=== PATIENT | female | born 1945 | race Caucasian/White ===

== ENCOUNTER 2018-01-02 17:09 | Inpatient (IN) ==
[2018-01-02] MEDS ORDERED: HYDROmorphone PF Inj 2 MG/ML Vial IV.PUSH ONE (18:17)
--- NOTE | 2018-01-02 18:50 | XR ---
EXAM DATE: 01/02/2018 6:35 PM EDT AGE/SEX: 72 years / Female INDICATIONS: Left anterior chest, neck and left arm pain CLINICAL DATA: This is the patient's initial encounter. Patient reports that signs and symptoms have been present for 4 - 6 days and indicates a pain score of 8/10. MEDICAL/SURGICAL HISTORY: None. None. COMPARISON: No prior exams available for comparison. FINDINGS: A single AP view of the chest demonstrates the lungs to be symmetrically aerated without evidence of mass, infiltrate or effusion. Minimal basilar atelectasis. Surgical clips left axilla. The cardiomedi astinal contours are prominent. Osseous structures are intact. CONCLUSION: Mild cardiomegaly with probable basilar atelectasis. Surgical clips left axilla. No significant effus ion. Electronically signed by: Lorne Curran MD 01/02/2018 6:48 PM EDT
--- NOTE | 2018-01-02 18:51 | ED ---
HPI General Chief complaint: Extremity Problem,Nontraumatic Stated complaint: chest pain/left shoulder/left arm/poss infection Time Seen by Provider: 01/02/18 17:33 Source: patient Mode of arrival: ambulatory Limitations: no limitations History of Present Illness HPI Narrative: The patient is a 72-year-old female that presents for the evaluation of left arm pain. The patient states that the pain started three days ago on Saturday. The patient states that the pain is localized to the left shoulder down to the left hand. The patient states that the pain has been constant since Saturday and the patient states that when she tries to move the arm she rates the pain a 12/10 on a pain scale. The patient does not state that anything aggravates or alleviates the pain. The patient also states that the left arm began to swell this morning. 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 Upon review of symptoms the patient states that she has been experiencing fatigue, dry mouth, and she reports some nausea with dry heaving but no vomiting. The patient denies chest pain, shortness of breath, and fever. She does report that she has a pounding headache and that she feels dizzy when she stands up too fast. Related Data Home Medications Medication Instructions Recorded Confirmed alprazolam 0.25 mg PO BID 01/02/18 01/02/18 anastrozole 1 mg PO DAILY 01/02/18 01/02/18 apixaban [Eliquis] 5 mg PO BID 01/02/18 01/02/18 furosemide [Lasix] 40 mg PO DAILY 01/02/18 01/02/18 gabapentin 300 mg PO DAILY 01/02/18 01/02/18 hydrocodone-acetaminophen 1 tab PO Q4H PRN 01/02/18 01/02/18 levothyroxine 137 mcg PO DAILY 01/02/18 01/02/18 metoprolol tartrate 100 mg PO BID 01/02/18 01/02/18 omeprazole 20 mg PO DAILY 01/02/18 01/02/18 potassium chloride [K-Tab] 10 meq PO BID 01/02/18 01/02/18 simvastatin 10 mg PO QPM 01/02/18 01/02/18 Allergies Allergy/AdvReac Type Severity Reaction Status Date / Time amlodipine Allergy Mild UNKNOWN Verified 01/02/18 17:30 lisinopril Allergy Mild UNKNOWN Verified 01/02/18 17:30 nifedipine Allergy Mild UNKNOWN Verified 01/02/18 17:30 NSAIDS (Non-Steroidal Allergy Mild Hives Verified 01/02/18 17:30 Anti-Inflamma morphine AdvReac Mild Nausea/Vomi Verified 01/02/18 17:28 ting STEROIDS Allergy Severe Anaphylaxis Uncoded 01/02/18 17:28 Review of Systems ROS: all other systems reviewed are negative [facility] Social History Social History Substance History: No History of Abuse Smoking Status: Former smoker Tobacco Type: Cigarettes How Often Do You Have a Drink Containing Alcohol: Never Recent Travel in [facility] within the Last 8 Weeks: No Recent Out of Country Travel within the Last 8 Weeks: No Immunization History Tetanus Immunization: Unsure Hx Influenza Vaccine This Season: No Exam Narrative Exam Narrative: GENERAL: Well appearing. SKIN: Focused skin assessment warm/dry. HEAD: Atraumatic. Normocephalic. EYES: Pupils equal and round. No scleral icterus. No injection or drainage. ENT: No nasal bleeding or discharge. Mucous membranes pink and moist. Tongue is midline. No uvula deviation. NECK: Trachea midline. No JVD. CARDIOVASCULAR: Regular rate and rhythm. No murmur appreciated. RESPIRATORY: No accessory muscle use. Clear to auscultation. Breath sounds equal bilaterally. GASTROINTESTINAL: Abdomen soft, non-tender, nondistended. Hepatic and splenic margins not palpable. MUSCULOSKELETAL: No obvious deformities. No clubbing. No cyanosis. No edema. Full ROM of all extremities with exception of the left upper arm. Has swelling and pain to the left arm. erythematous. Very swollen compared to the right. Very tender. Cannot raise arm without significant pain. NEUROLOGICAL: Awake and alert. No obvious cranial nerve deficits. Motor grossly within normal limits. Normal speech. PSYCHIATRIC: Appropriate mood and affect; insight and judgment normal. Course Initial Documented Vital Signs Temperature 97.5 F L 01/02/18 17:18 Pulse Rate 65 01/02/18 17:18 Respiratory Rate 16 01/02/18 17:18 Blood Pressure 142/73 H 01/02/18 17:18 Pulse Oximetry 97 01/02/18 17:18 Last Documented Vital Signs Temperature 97.5 F L 01/02/18 17:18 Pulse Rate 65 01/02/18 19:57 Respiratory Rate 16 01/02/18 19:57 Blood Pressure 131/69 01/02/18 19:57 Pulse Oximetry 93 L 01/02/18 19:57 Medical Decision Making MDM Narrative Medical decision making narrative: 72-year-old female that presents to the ED for evaluation of left arm pain and swelling. Patient was properly examined and was found to have signs and symptoms very concerning for infected lymphangitis. Labs and imaging order. Labs and imaging did show elevated white blood cell count, CRP and ESR. Patient was given Dilaudid as well as Zofran and Zosyn and Vanco. Patient still in some discomfort. Recommendation at this time is for admission for further evaluation. Patient agrees with this plan. Case discussed with Dr. Johnson who agrees to admission. Case discussed with Dr. Conley, my attending, who agrees with admission and plan. Medical Screen Exam Complete: Yes Emergency Medical Condition: Yes Differential Diagnosis Differential Diagnosis: Lymphadenitis versus lymphangitis versus cellulitis versus infected arm Medical Records Medical records reviewed: Yes I reviewed the patient's medical records. Lab Data Lab results reviewed: Yes I reviewed the patient's lab results. Result diagrams: 01/02/18 18:15 Lab Results 01/02/18 01/02/18 01/02/18 Range/Units 18:15 18:15 18:15 WBC 14.7 H (4.0-11.0) th/mm3 RBC 4.16 (4.00-5.30) mil/mm3 Hgb 11.9 (11.6-15.3) gm/dL Hct 35.2 (35.0-46.0) % MCV 84.6 (80.0-100.0) fL MCH 28.6 (27.0-34.0) pg MCHC 33.8 (32.0-36.0) % RDW 15.2 (11.6-17.2) % Plt Count 230 (150-450) th/mm3 MPV 8.5 (7.0-11.0) fL Neut % (Auto) 72.4 H (16.0-70.0) % Lymph % (Auto) 11.9 (9.0-44.0) % [place] % (Auto) 14.1 H (0.0-8.0) % Eos % (Auto) 1.1 (0.0-4.0) % Baso % (Auto) 0.5 (0.0-2.0) % Neut # (Auto) 10.6 H (1.8-7.7) th/mm3 Lymph # (Auto) 1.8 (1.0-4.8) th/mm3 [place] # (Auto) 2.1 H (0.0-0.9) th/mm3 Eos # (Auto) 0.2 (0.0-0.4) th/mm3 Baso # (Auto) 0.1 (0.0-0.2) th/mm3 WBC Differential . Differential Comment Auto diff final ESR (0-30) mm/hr PT 11.4 (9.8-11.6) sec INR 1.1 Ratio APTT 35.9 H (24.3-30.1) sec Lactic Acid (0.4-2.0) mmol/L Magnesium 1.7 (1.5-2.5) mg/dL C-Reactive Protein 32.00 H (0.00-0.30) mg/dL 01/02/18 01/02/18 Range/Units 18:15 18:15 WBC (4.0-11.0) th/mm3 RBC (4.00-5.30) mil/mm3 Hgb (11.6-15.3) gm/dL Hct (35.0-46.0) % MCV (80.0-100.0) fL MCH (27.0-34.0) pg MCHC (32.0-36.0) % RDW (11.6-17.2) % Plt Count (150-450) th/mm3 MPV (7.0-11.0) fL Neut % (Auto) (16.0-70.0) % Lymph % (Auto) (9.0-44.0) % [place] % (Auto) (0.0-8.0) % Eos % (Auto) (0.0-4.0) % Baso % (Auto) (0.0-2.0) % Neut # (Auto) (1.8-7.7) th/mm3 Lymph # (Auto) (1.0-4.8) th/mm3 [place] # (Auto) (0.0-0.9) th/mm3 Eos # (Auto) (0.0-0.4) th/mm3 Baso # (Auto) (0.0-0.2) th/mm3 WBC Differential Differential Comment ESR 90 H (0-30) mm/hr PT (9.8-11.6) sec INR Ratio APTT (24.3-30.1) sec Lactic Acid 1.2 (0.4-2.0) mmol/L Magnesium (1.5-2.5) mg/dL C-Reactive Protein (0.00-0.30) mg/dL Imaging Data Attestation: I personally reviewed and interpreted this imaging study as follows : Radiologist's impression: Chest X-Ray 01/02/18 18:17 CONCLUSION: Mild cardiomegaly with probable basilar atelectasis. Surgical clips left axilla. No significant effusion. Venous Doppler Study 01/02/18 18:20 CONCLUSION: 1. The study is negative for upper extremity deep venous thrombosis. 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 Discharge Plan Discharge Disposition Patient Disposition: 30 Still Patient Discharge Details Diagnosis: Lymphadenitis, acute, Cellulitis Physicians Team ED Provider: Marc Conley ED Midlevel Provider: Imer Christine Primary Care Provider: UNKNOWN, Attending Provider: Ashok Bonilla Discharge Interventions Interventions: Vital Signs Last Done: 01/02/18 19:57 Status ED Status: Admitted Observation Patient
[2018-01-02 19:09] LABS: Activated Partial Thrombo Time 35.9 sec (24.3-30.1); INR 1.1 Ratio; Prothrombin Time 11.4 sec (9.8-11.6)
[2018-01-02 19:16] LABS: Baso # (Auto) 0.1 th/mm3 (0.0-0.2); Baso % (Auto) 0.5 % (0.0-2.0); Eos # (Auto) 0.2 th/mm3 (0.0-0.4); Eos % (Auto) 1.1 % (0.0-4.0); Hematocrit 35.2 % (35.0-46.0); Hemoglobin 11.9 gm/dL (11.6-15.3); Lymph # (Auto) 1.8 th/mm3 (1.0-4.8); Lymph % (Auto) 11.9 % (9.0-44.0); Mean Corpuscular HGB Conc 33.8 % (32.0-36.0); Mean Corpuscular Hemoglobin 28.6 pg (27.0-34.0); Mean Corpuscular Volume 84.6 fL (80.0-100.0); Mean Platelet Volume 8.5 fL (7.0-11.0); Mono # (Auto) 2.1 th/mm3 (0.0-0.9); Mono % (Auto) 14.1 % (0.0-8.0); Neut # (Auto) 10.6 th/mm3 (1.8-7.7); Neut % (Auto) 72.4 % (16.0-70.0); Platelet Count 230 th/mm3 (150-450); Red Blood Count 4.16 mil/mm3 (4.00-5.30); Red Cell Distribution Width 15.2 % (11.6-17.2); White Blood Count 14.7 th/mm3 (4.0-11.0)
[2018-01-02 19:31] LABS: Magnesium 1.7 mg/dL (1.5-2.5)
--- NOTE | 2018-01-02 19:36 | XR ---
EXAM DATE: 01/02/2018 7:18 PM EDT AGE/SEX: 72 years / Female INDICATIONS: Arthritis. CLINICAL DATA: This is the patient's initial encounter. Patient reports that signs and symptoms have been present for 4 - 6 days and indicates a pain score of 10/10. MEDICAL/SURGICAL HISTORY: None. None. COMPARISON: No prior exams available for comparison. FINDINGS: Bony structures are intact and in normal alignment. Moderate to severe osteoarthritis of the left lizzie ulder joint. Moderate osteoarthritis of the AC joint. Surgical clips left axilla. Osseous density is normal. No radiopaque foreign bodies seen. 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 Electronically signed by: Lorne Curran MD 01/02/2018 7:35 PM EDT
--- NOTE | 2018-01-02 19:48 | US ---
EXAM DATE: 01/02/2018 7:41 PM EDT AGE/SEX: 72 years / Female INDICATIONS: Left arm swelling and pain. CLINICAL DATA: This is the patient's initial encounter. Patient reports that signs and symptoms have been present for 4 - 6 days and indicates a pain score of 10/10. MEDICAL/SURGICAL HISTORY: . Left arm cancer. None. COMPARISON: No prior exams available for comparison. FINDINGS: The vessels are compressible and augmentation response is documented. No filling defects a re seen. The flow is phasic with respiration. Other: None. CONCLUSION: 1. The study is negative for upper extremity deep venous thrombosis. Electronically signed by: Lorne Curran MD 01/02/2018 7:47 PM EDT
[2018-01-02] MEDS ORDERED: Piperacil/Tazo 3.375 GM Premix 50 ML IV.SIG ONE (20:25)
[2018-01-02] MEDS ORDERED: Vancomycin Inj 1 GM/200 ML PIGGYBACK IV.SIG SCH (21:00)
[2018-01-02] MEDS ORDERED: Vancomycin Consult Pharmacy 1 EACH OTHER SCH (21:00)
[2018-01-02] MEDS ORDERED: Vancomycin Inj 1,500 MG in Sodium Chlor 0.9% Inj 500 ML IV.SIG ONE (22:00)
[2018-01-02] MEDS: Sod Chloride 0.9% Inj 1,000 ML IV.CONT SCH (22:17)
[2018-01-02] MEDS: ALPRAZolam 0.25 MG Tablet PO SCH (22:18)
[2018-01-03] MEDS: HYDROmorphone PF Inj 2 MG/ML Vial IV.PUSH PRN ×5 (01:57→23:48)
--- NOTE | 2018-01-03 06:05 | P.HP ---
History of Present Illness Service: [facility] adult med Primary Care Physician: UNKNOWN Chief Complaint: Arm pain, swelling, redness History of Present Illness: The patient is a 72-year-old female with chronic left upper extremity lymphedema status post distant history of left axillary node surgery that presents for the evaluation of left arm pain. The patient states that the pain started three days prior to arrival on Saturday. The patient states that the pain is localized to the left shoulder down to the left hand but also involves some spasm of her left neck. The patient states that the pain has been constant since Saturday and the patient states that when she tries to move the arm, the pain is significantly worse despite outpatient pain medication. She has visited her primary care physician twice regarding this including earlier on the day of arrival. She has been given Rocephin injection 2 as an outpatient and was started on Bactrim 1 day prior to arrival per record review. The arm swelling, pain and redness have increased despite these interventions. She has been experiencing fatigue, dry mouth, and she reports some nausea with dry heaving but no vomiting. The patient denies chest pain, shortness of breath, and fever. She does report that she has a pounding headache and that she feels dizzy when she stands up too fast. 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 Has 2 adult sons , No tobacco since around 1986, prior to that smoked approximately pack per day for 5 years Denies alcohol or illicit drug use - Diagnosis (1) Lymphadenitis, acute (2) Cellulitis (3) Lymphedema (4) Atrial fibrillation (5) Hypertension (6) Hypothyroidism Review of Systems Constitutional: Reports body ache(s), Reports excessive sweating Ears, Nose, Mouth, and Throat: Denies abnormal hearing, Denies bleeding gums, Denies bad breath, Denies change in voice, Denies dental pain, Denies difficulty swallowing, Denies dizziness, Denies dry mouth, Denies ear discharge , Denies ear pain, Denies facial pain, Denies headache(s), Denies hearing loss, Denies hoarseness, Denies lip swelling, Denies nosebleed, Denies mouth lesions, Denies mouth pain, Denies nasal congestion, Denies nasal discharge, Denies nasal obstruction, Denies nasal trauma, Denies neck lump, Denies neck pain, Denies nose pain, Denies pain with swallowing, Denies poor balance, Denies post nasal drip, Denies ringing in the ears, Denies sinus pain, Denies sinus pressure , Denies sore throat, Denies throat swelling, Denies tongue swelling, Denies other Cardiovascular: Denies chest pain, Denies chest pain at rest, Denies chest pain with activity, Denies excessive sweating, Denies fainting, Denies fast heart rate, Denies foot swelling, Denies generalized swelling, Denies irregular heart rhythm, Denies leg pain with activity, Denies leg sores, Denies leg swelling, Denies lightheadedness, Denies radiating jaw, neck or arm pain, Denies rapid, pounding, or irregular heartbeat, Denies shortness of breath, Denies shortness of breath with activity, Denies shortness of breath when lying down, Denies shortness of breath causing sudden awakening, Denies slow heart rate, Denies other Respiratory: Denies change in phlegm color, Denies chest congestion, Denies cough, Denies coughing up blood, Denies excessive phlegm production, Denies pain on inspiration, Denies pain with cough, Denies shortness of breath, Denies shortness of breath with activity, Denies snoring, Denies stridor, Denies wheezing, Denies other Gastrointestinal: Reports heartburn, Reports nausea Musculoskeletal: Reports back pain, Reports body aches, Reports muscle weakness Skin/Breast: Reports redness Neurologic: Reports sensory deficit Psychiatric: Reports anxiety Endocrine: Reports excessive sweating Hematologic/Lymphatic: Reports easy bleeding, Reports easy bruising PMFSH - History History Provided By: Patient - Medical History Medical History: Medical History (Last Updated 01/03/18 @ 05:50 by Jonny Johnson MD, PhD) Lymphedema (Acute) Morbid obesity (Acute) Hypothyroidism (Acute) Hypertension (Acute) GERD (gastroesophageal reflux disease) (Acute) Atrial fibrillation (Acute) Anxiety CKD (chronic kidney disease) stage 3, GFR 30-59 ml/min High cholesterol Lumbar radiculopathy Peripheral neuropathy due to chemotherapy - Surgical History Surgical History: Surgical History (Last Updated 01/03/18 @ 05:52 by Jonny Johnson MD, PhD) History of hip replacement, total History of lumpectomy of left breast History of total abdominal hysterectomy and bilateral salpingo-oophorectomy Hx of total knee replacement - Family History Family History: Family History (Last Updated 01/03/18 @ 05:54 by Jonny Johnson MD, PhD) Mother Lung cancer Father Coronary artery disease - Tobacco History Second Hand Smoke Exposure: No Smoking Status: Former smoker Tobacco Type: Cigarettes Number of Pack Years (if former smoker): 5 Smoking End Date: 1986 - Alcohol History How Often Do You Have a Drink Containing Alcohol: Never - Substance Use History Substance History: No History of Abuse - Travel History Recent Travel in the [place] Within the Last 8 Weeks: No Recent Travel Out of the Country Within the Last 8 Weeks: No - Immunization History Tetanus Immunization: Unsure Hx Influenza Vaccine This Season: No Medications and Allergies Active Medications: Active Medications Alprazolam (Xanax) 0.25 mg PO BID [facility] Last Admin: 01/02/18 22:18 Dose: 0.25 mg Anastrozole (Arimidex) 1 mg PO DAILY [facility] Apixaban (Eliquis) 5 mg PO BID [facility] Last Admin: 01/02/18 22:18 Dose: 5 mg Digoxin (Lanoxin) 125 mcg PO DAILY [facility] Duloxetine HCl (Cymbalta) 30 mg PO DAILY [facility] Gabapentin (Neurontin) 600 mg PO TID [facility] Hydromorphone HCl (Dilaudid Pf Inj) 1 mg IV.PUSH Q4H PRN PRN Reason: PAIN LEVEL 3-10 Last Admin: 01/03/18 01:57 Dose: 1 mg Sodium Chloride (Ns Inj) 1,000 mls @ 75 mls/hr IV.CONT .[id number] [facility] Last Admin: 01/02/18 22:17 Dose: 75 mls/hr Pharmacy Profile Note (Vancomycin Consult Pharmacy) 0 mls @ 0 mls/hr OTHER UNSCH [facility] Levothyroxine Sodium (Synthroid) 112 mcg PO DAILY@0600 [facility] Levothyroxine Sodium (Synthroid) 25 mcg PO DAILY@0600 [facility] Metoprolol Tartrate (Lopressor) 50 mg PO BID [facility] Ondansetron HCl (Zofran Inj) 4 mg IV.PUSH Q6H PRN PRN Reason: nausea, vomiting Pantoprazole Sodium (Protonix) 20 mg PO DAILY [facility] Sodium Chloride (Ns Flush) 2 ml IV.FLUSH BID [facility] Last Admin: 01/02/18 22:18 Dose: Not Given Sodium Chloride (Ns Flush) 2 ml IV.FLUSH PRN PRN PRN Reason: FLUSH AFTER USING IV ACCESS Allergies Allergy/AdvReac Type Severity Reaction Status Date / Time amlodipine Allergy Mild UNKNOWN Verified 01/02/18 17:30 lisinopril Allergy Mild UNKNOWN Verified 01/02/18 17:30 nifedipine Allergy Mild UNKNOWN Verified 01/02/18 17:30 NSAIDS (Non-Steroidal Allergy Mild Hives Verified 01/02/18 17:30 Anti-Inflamma morphine AdvReac Mild Nausea/Vomi Verified 01/02/18 17:28 ting STEROIDS Allergy Severe Anaphylaxis Uncoded 01/02/18 17:28 Home Medications Medication Instructions Recorded Confirmed Type alprazolam 0.25 mg PO TID PRN 01/02/18 01/03/18 History anastrozole 1 mg PO DAILY 01/02/18 01/02/18 History apixaban [Eliquis] 5 mg PO BID 01/02/18 01/02/18 History furosemide [Lasix] 40 mg PO DAILY 01/02/18 01/02/18 History gabapentin 300 mg PO DAILY 01/02/18 01/02/18 History hydrocodone-acetaminophen 1 tab PO Q4H PRN 01/02/18 01/02/18 History levothyroxine 137 mcg PO DAILY 01/02/18 01/02/18 History metoprolol tartrate 100 mg PO BID 01/02/18 01/02/18 History omeprazole 20 mg PO DAILY 01/02/18 01/02/18 History potassium chloride [K-Tab] 10 meq PO BID 01/02/18 01/02/18 History simvastatin 10 mg PO QPM 01/02/18 01/02/18 History Exam Vital signs: Vital Signs 01/02/18 17:18 01/02/18 19:39 01/02/18 19:57 Temperature 97.5 F L Pulse Rate 65 65 Respiratory Rate 16 8 L 16 Blood Pressure 142/73 H 131/69 Pulse Oximetry 97 93 L 01/02/18 21:00 01/02/18 22:05 01/03/18 04:00 Temperature 98.8 F 98.3 F Pulse Rate 70 66 72 Respiratory Rate 16 17 18 Blood Pressure 140/79 136/73 147/78 H Pulse Oximetry 98 93 L 95 Intake & Output 01/02/18 01/02/1818 06:59 18:59 06:59 Intake Total 565 / 565 Balance 565 / 565 Weight 110.677 kg 110.677 kg Intake: IV 565 / 565 Zosyn 3.375 GM Premix 50 ML @ 50 / 50 100 mls/hr IV.SIG ONCE ONE Rx#: [id number] Vancomycin Inj 1,500 MG In NS 515 / 515 Inj 500 ML @ 257.5 mls/hr IV. SIG ONCE ONE Rx#:[id number] Other: Date of Last Bowel Movement 01/01/18 Weight On Admission 110.677 kg Narrative: GENERAL: Obese, pleasant, cooperative to exam but complaining of pain spasm left shoulder neck area. SKIN: Warm and dry. Erythematous patches left upper extremity with some mild induration. Chronic lymphedema left upper extremity. Skin seems exquisitely tender to palpation even with light touch along left shoulder left lateral arm and left neck area. HEAD: Atraumatic. Normocephalic. EYES: Pupils equal and round. No scleral icterus. No injection or drainage. ENT: No nasal bleeding or discharge. Mucous membranes pink and moist. NECK: Trachea midline. No JVD. Paracervical spasm on the left. No central tenderness to palpation. CARDIOVASCULAR: Regular rate and rhythm. No significant murmurs appreciated. RESPIRATORY: No accessory muscle use. Clear to auscultation. Breath sounds equal bilaterally. GASTROINTESTINAL: Abdomen soft, non-tender, nondistended. Hepatic and splenic margins not palpable. Bowel sounds present MUSCULOSKELETAL: Extremities without clubbing, cyanosis. No obvious deformities. Crepitus left shoulder with tenderness to palpation and positive empty can and apprehension test. Lymphedema left upper extremity. NEUROLOGICAL: Awake and alert. No obvious cranial nerve deficits. Motor grossly within normal limits. Five out of 5 muscle strength in the arms and legs however left upper extremity testing limited due to significant pain. Normal speech. PSYCHIATRIC: Appropriate mood and affect; insight and judgment normal. Results - Labs CBC & Chem 7: 01/02/18 18:15 Labs: Laboratory Results - last 24 hr 01/02/18 01/02/18 01/02/18 18:15 18:15 18:15 WBC 14.7 H RBC 4.16 Hgb 11.9 Hct 35.2 MCV 84.6 MCH 28.6 MCHC 33.8 RDW 15.2 Plt Count 230 MPV 8.5 Neut % (Auto) 72.4 H Lymph % (Auto) 11.9 Charles % (Auto) 14.1 H Eos % (Auto) 1.1 Baso % (Auto) 0.5 Neut # (Auto) 10.6 H Lymph # (Auto) 1.8 Charles # (Auto) 2.1 H Eos # (Auto) 0.2 Baso # (Auto) 0.1 WBC Differential . Differential Comment Auto diff final ESR PT 11.4 INR 1.1 APTT 35.9 H Lactic Acid Magnesium 1.7 C-Reactive Protein 32.00 H 01/02/18 01/02/18 18:15 18:15 WBC RBC Hgb Hct MCV MCH MCHC RDW Plt Count MPV Neut % (Auto) Lymph % (Auto) Charles % (Auto) Eos % (Auto) Baso % (Auto) Neut # (Auto) Lymph # (Auto) Charles # (Auto) Eos # (Auto) Baso # (Auto) WBC Differential Differential Comment ESR 90 H PT INR APTT Lactic Acid 1.2 Magnesium C-Reactive Protein - Imaging Impressions Chest X-Ray 01/02/18 18:17 CONCLUSION: Mild cardiomegaly with probable basilar atelectasis. Surgical clips left axilla. No significant effusion. Venous Doppler Study 01/02/18 18:20 CONCLUSION: 1. The study is negative for upper extremity deep venous thrombosis. 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 Caprini VTE Risk Assessment Caprini VTE Risk Assessment: Moderate/High Risk (score >= 2) Caprini Risk Assessment Model: Point Value = 1 Point Value = 2 Point Value = 3 Point Value = 5 Age 41-60 Minor surgery BMI > 25 kg/m2 Swollen legs Varicose veins or History of unexplained or recurrent spontaneous Oral contraceptives or hormone replacement Sepsis (< 1 month) Serious lung disease, including pneumonia (< 1 month) Abnormal pulmonary function Acute myocardial infarction Congestive heart failure (< 1 month) History of inflammatory bowel disease Medical patient at bed rest Age 61-74 Arthroscopic surgery Major open surgery (> 45 min) Laparoscopic surgery (> 45 min) Malignancy Confined to bed (> 72 hours) Immobilizing plaster cast Central venous access Age >= 75 History of VTE Family history of VTE Factor V Leiden Prothrombin [id number] Lupus anticoagulant Anticardiolipin antibodies Elevated serum homocysteine Heparin-induced thrombocytopenia Other congenital or acquired thrombophilia Stroke (< 1 month) Elective arthroplasty Hip, pelvis, or leg fracture Acute spinal cord injury (< 1 month) Prophylaxis Regimen: Total Risk Factor Score Risk Level Prophylaxis Regimen 0-1 Low Early ambulation 2 Moderate Order ONE of the following: *Sequential Compression Device (SCD) *Heparin 5000 units SQ BID 3-4 Higher Order ONE of the following medications: *Heparin 5000 units SQ TID *Enoxaparin/Lovenox 40 mg SQ daily (WT < 150 kg, CrCl > 30 mL/min) *Enoxaparin/Lovenox 30 mg SQ daily (WT < 150 kg, CrCl > 10-29 mL/min) *Enoxaparin/Lovenox 30 mg SQ BID (WT < 150 kg, CrCl > 30 mL/min) AND/OR *Sequential Compression Device (SCD) 5 or more Highest Order ONE of the following medications: *Heparin 5000 units SQ TID (Preferred with Epidurals) *Enoxaparin/Lovenox 40 mg SQ daily (WT < 150 kg, CrCl > 30 mL/min) *Enoxaparin/Lovenox 30 mg SQ daily (WT < 150 kg, CrCl > 10-29 mL/min) *Enoxaparin/Lovenox 30 mg SQ BID (WT < 150 kg, CrCl > 30 mL/min) AND *Sequential Compression Device (SCD) Assessment and Plan - Assessment (1) Lymphadenitis, acute Code(s): L04.9 - Acute lymphadenitis, unspecified Status: Acute Plan: Continue current antibiotic therapy. Continue pain control measures. Failed outpatient antibiotic therapy and also outpatient attempts at pain control with oral opiates. (2) Cellulitis Code(s): L03.90 - Cellulitis, unspecified Status: Acute Plan: Continue antibiotic therapy. (3) Lymphedema Code(s): I89.0 - Lymphedema, not elsewhere classified Status: Acute Plan: Elevate left upper extremity. May require wound care for lymphedema wrapping. (4) Atrial fibrillation Code(s): I48.91 - Unspecified atrial fibrillation Status: Acute (5) Hypertension Code(s): I10 - Essential (primary) hypertension Status: Acute Plan: We will continue furosemide as per outpatient dosing. Will decrease metoprolol to 50 mg twice a day for now. (6) Hypothyroidism Code(s): E03.9 - Hypothyroidism, unspecified Status: Acute Plan: Continue home medication. Check TSH as her last TSH was elevated at 9.07 in July of this year. - Plan Code Status: full (2) Cellulitis Qualifiers: Site of cellulitis: extremity Site of cellulitis of extremity: upper extremity Laterality: left Qualified Code(s): L03.114 - Cellulitis of left upper limb
[2018-01-03] MEDS: Levothyroxine 112 MCG Tablet PO SCH (06:22)
[2018-01-03] MEDS: Anastrozole 1 MG Tablet PO SCH (08:12)
[2018-01-03] MEDS: ALPRAZolam 0.25 MG Tablet PO SCH ×2 (08:13→23:26)
[2018-01-03] MEDS: Metoprolol Tartrate 50 MG Tablet PO SCH ×2 (08:13→23:26)
[2018-01-03] MEDS: Digoxin 125 MCG Tablet PO SCH (08:13)
[2018-01-03] MEDS: Pantoprazole Sodium 20 MG DR Tablet PO SCH (08:13)
[2018-01-03] MEDS: Furosemide 40 MG Tablet PO SCH (08:13)
[2018-01-03] MEDS: Gabapentin 300 MG Capsule PO SCH ×3 (08:13→18:30)
[2018-01-03] MEDS ORDERED: Gabapentin 300 MG Capsule PO SCH (09:00)
--- NOTE | 2018-01-03 09:16 | P.PNIM ---
Subjective Interval history: Pt complains of significant pain in the left arm, shoulder, and neck/chest. She is sweating profusely but is afebrile. She states that she always sweats quite a bit Physical Exam Vital signs: Vital Signs 01/02/18 17:18 01/02/18 19:39 01/02/18 19:57 Temperature 97.5 F L Pulse Rate 65 65 Respiratory Rate 16 8 L 16 Blood Pressure 142/73 H 131/69 Pulse Oximetry 97 93 L 01/02/18 21:00 01/02/18 22:05 01/03/18 04:00 Temperature 98.8 F 98.3 F Pulse Rate 70 66 72 Respiratory Rate 16 17 18 Blood Pressure 140/79 136/73 147/78 H Pulse Oximetry 98 93 L 95 01/03/18 07:53 Temperature 98.6 F Pulse Rate 79 Respiratory Rate 16 Blood Pressure 125/79 Pulse Oximetry 94 L Intake & Output 01/02/18 01/03/18 01/03/18 18:59 06:59 18:59 Intake Total 565 / 565 Balance 565 / 565 Weight 110.677 kg 110.677 kg Intake: IV 565 / 565 Zosyn 3.375 GM Premix 50 ML @ 50 / 50 100 mls/hr IV.SIG ONCE ONE Rx#: [id number] Vancomycin Inj 1,500 MG In NS 515 / 515 Inj 500 ML @ 257.5 mls/hr IV. SIG ONCE ONE Rx#:[id number] Other: Date of Last Bowel Movement 01/01/18 Weight On Admission 110.677 kg Narrative: General: NAD, AAOx3 Skin: Erythematous patches left upper extremity with some mild induration. Chronic lymphedema left upper extremity. Skin is exquisitely tender to palpation even with light touch along left shoulder left lateral arm and left neck area. Cardiac: Regular rate and rhythm. No significant murmurs appreciated. Chest: CTA bilaterally. Abd: +BS, soft, non-tender, nondistended. Ext: Lymphedema left upper extremity. Results - Labs CBC & Chem 7: 01/03/18 10:51 01/03/18 10:51 Laboratory Results - last 24 hr 01/02/18 01/02/18 01/02/18 18:15 18:15 18:15 WBC 14.7 H RBC 4.16 Hgb 11.9 Hct 35.2 MCV 84.6 MCH 28.6 MCHC 33.8 RDW 15.2 Plt Count 230 MPV 8.5 Neut % (Auto) 72.4 H Lymph % (Auto) 11.9 Kingfisher % (Auto) 14.1 H Eos % (Auto) 1.1 Baso % (Auto) 0.5 Neut # (Auto) 10.6 H Lymph # (Auto) 1.8 [place]isher # (Auto) 2.1 H Eos # (Auto) 0.2 Baso # (Auto) 0.1 WBC Differential . Differential Comment Auto diff final ESR PT 11.4 INR 1.1 APTT 35.9 H Lactic Acid Magnesium 1.7 C-Reactive Protein 32.00 H 01/02/18 01/02/18 18:15 18:15 WBC RBC Hgb Hct MCV MCH MCHC RDW Plt Count MPV Neut % (Auto) Lymph % (Auto) Kingfisher % (Auto) Eos % (Auto) Baso % (Auto) Neut # (Auto) Lymph # (Auto) Kingfisher # (Auto) Eos # (Auto) Baso # (Auto) WBC Differential Differential Comment ESR 90 H PT INR APTT Lactic Acid 1.2 Magnesium C-Reactive Protein - Imaging Impressions Chest X-Ray 01/02/18 18:17 CONCLUSION: Mild cardiomegaly with probable basilar atelectasis. Surgical clips left axilla. No significant effusion. Venous Doppler Study 01/02/18 18:20 CONCLUSION: 1. The study is negative for upper extremity deep venous thrombosis. 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 Assessment and Plan - Assessment (1) Cellulitis Code(s): L03.90 - Cellulitis, unspecified Status: Acute Plan: Cellulitis, LUE/shoulder/neck Lymphedema LUE - Pt is a 72 y/o female with chronic left upper extremity lymphedema s/p left breast lumpectomy and axillary node surgery - Pt presented to the ED at [facility] [place] on 01/02/18 with left arm pain and redness. The patient states that the pain started three days prior to arrival in the ED. The patient states that the pain is localized to the left shoulder down to the left hand but also involves some spasm of her left neck. - She has visited her primary care physician twice regarding this and has been given Rocephin injection 2 as an outpatient and was started on Bactrim 1 day prior to arrival per record review. The arm swelling, pain and redness have increased despite these interventions. - LUE US was negative for DVT - Pt was given IV Vancomycin and Zosyn in the ED - She has been continued on IV Vanc with pharmacy to dose - Blood cultures were drawn in the ED and are pending. - Try to keep LUE elevated - Add Zosyn 3.375 Q6H - Check CT LUE and soft tissue of the neck. Will have to do noncontrasted due to elevated Cr but not ideal for evaluation. - Supportive care - Monitor labs closely DVT prophylaxis with pts home dose of Eliquis A. fib - Cont. home meds HTN - Home meds continued - Monitor Hypothyroidism - Continue home medication. - Awaiting repeat TSH as her last TSH was elevated at 9.07 in July 2017. (2) Lymphedema Code(s): I89.0 - Lymphedema, not elsewhere classified Status: Chronic (3) Hypothyroidism Code(s): E03.9 - Hypothyroidism, unspecified Status: Chronic (4) Hypertension Code(s): I10 - Essential (primary) hypertension Status: Chronic (5) GERD (gastroesophageal reflux disease) Code(s): K21.9 - Gastro-esophageal reflux disease without esophagitis Status: Acute (6) Atrial fibrillation Code(s): I48.91 - Unspecified atrial fibrillation Status: Chronic (1) Cellulitis Qualifiers: Site of cellulitis: extremity Site of cellulitis of extremity: upper extremity Laterality: left Qualified Code(s): L03.114 - Cellulitis of left upper limb
[2018-01-03 11:10] LABS: Baso % (Auto) 0.4 % (0.0-2.0); Eos # (Auto) 0.1 th/mm3 (0.0-0.4); Eos % (Auto) 1.3 % (0.0-4.0); Hematocrit 31.5 % (35.0-46.0); Hemoglobin 10.5 gm/dL (11.6-15.3); Lymph # (Auto) 0.9 th/mm3 (1.0-4.8); Mean Corpuscular HGB Conc 33.2 % (32.0-36.0); Mean Corpuscular Hemoglobin 28.4 pg (27.0-34.0); Mean Corpuscular Volume 85.5 fL (80.0-100.0); Mono # (Auto) 1.2 th/mm3 (0.0-0.9); Mono % (Auto) 12.3 % (0.0-8.0); Neut # (Auto) 7.4 th/mm3 (1.8-7.7); Platelet Count 215 th/mm3 (150-450); Red Blood Count 3.68 mil/mm3 (4.00-5.30); Red Cell Distribution Width 15.3 % (11.6-17.2); White Blood Count 9.6 th/mm3 (4.0-11.0)
[2018-01-03 11:19] LABS: Calcium 8.3 mg/dL (8.5-10.1); Carbon Dioxide 30.1 meq/L (21.0-32.0)
[2018-01-03 11:23] LABS: Potassium 2.9 meq/L (3.5-5.1)
[2018-01-03] MEDS: Potassium Chloride 10 MEQ ER Capsule PO SCH ×4 (12:26→23:58)
[2018-01-03] MEDS: Piperacil/Tazo 3.375 GM Premix 50 ML IV.SIG SCH ×2 (12:47→18:30)
--- NOTE | 2018-01-03 13:58 | CT ---
EXAM DATE: 01/03/2018 1:38 PM EDT AGE/SEX: 72 years / Female INDICATIONS: Patient's neck swelling since yesterday. CLINICAL DATA: This is the patient's initial encounter. Patient reports that signs and symptoms have been present for 1 day and indicates a pain score of 10/10. MEDICAL/SURGICAL HISTORY: Hypertension. gerd, A-fib, chemo, lymphadenitis, neuropathy Hysterectomy . oophorectomy RADIATION DOSE: 18.14 CTDI (mGy) COMPARISON: No prior exams available for comparison. TECHNIQUE: Helical acquisition was performed using a multirow detector CT scanner without contrast. Using automated exposure control and adjustment of the mA and/or kV according to patient size, radiat ion dose was kept as low as reasonably achievable to obtain optimal diagnostic quality images. DICOM format image data is available electronically for review and comparison. FINDINGS: Nasopharynx: The nasopharyngeal airway has a normal configuration. No mucosal thickening or mass is seen. Oropharynx: The intrinsic muscles of the tongue are symmetric. The tonsillar pillars are intact. T he prevertebral soft tissues are not thickened. Larynx: The supraglottic, glottic, and infraglottic structures are intact. Parapharyngeal: The parapharyngeal space is intact. Salivary Glands: The parotid and submandibular glands are intact. Lymph Nodes: No enlarged nodes. Thyroid: Grossly intact. Bones: Unremarkable. Soft tissues/musculature: There is enlargement of the left strap muscles suggestive of injury and pos sible hematoma. Diffuse subcutaneous edema is also noted surrounding the strap muscles particularly o n the left. CONCLUSION: 1. Enlargement of the left strap muscles suggestive of injury and possible hematoma. Diffuse subcuta neous edema is also noted surrounding the strap muscles particularly on the left. Electronically signed by: Del Kurtz MD 01/03/2018 1:57 PM EDT
--- NOTE | 2018-01-03 14:37 | CT ---
EXAM DATE: 01/03/2018 1:40 PM EDT AGE/SEX: 72 years / Female INDICATIONS: Left arm cellulitis. CLINICAL DATA: This is the patient's initial encounter. Patient reports that signs and symptoms have been present for > 1 year and indicates a pain score of 10/10. MEDICAL/SURGICAL HISTORY: Hypertension. neuropathy, mary, chemo, lymphadenitis Hysterectomy. oophor ectomy RADIATION DOSE: 27.16 CTDI (mGy) COMPARISON: TLI, MR SHOULDER W/O CONTRAST, LEFT, 08/28/2017. . TECHNIQUE: Multiple contiguous axial images were acquired using a multirow detector CT scanner witho ut contrast. Multiplanar reconstruction was performed in the sagittal and coronal planes. Using aut omated exposure control and adjustment of the mA and/or kV according to patient size, radiation dose was kept as low as reasonably achievable to obtain optimal diagnostic quality images. DICOM format i mage data is available electronically for review and comparison. FINDINGS: There is moderate soft tissue swelling about the shoulder. There is some mild subjacent edema and arm without defined fluid collection to suggest an abscess. Humerus is unremarkable. CONCLUSION: 1. I don't see a defined fluid collection to suggest a deep space abscess. 2. Ultrasound could be used to follow. Electronically signed by: Parish Gar MD 01/03/2018 2:36 PM EDT
[2018-01-03] MEDS: Sod Chloride 0.9% Inj 1,000 ML IV.CONT SCH (14:47)
[2018-01-03] MEDS: Vancomycin Inj 1,750 MG in Sodium Chlor 0.9% Inj 500 ML IV.SIG SCH (15:43)
[2018-01-03] MEDS ORDERED: Gadobutrol PF 10 MMOL/10 ML Vial (for RAD) IV.SIG ONE (18:14)
--- NOTE | 2018-01-03 18:45 | MR ---
EXAM DATE: 01/03/2018 6:17 PM EDT AGE/SEX: 72 years / Female INDICATIONS: Swelling around upper neck for one day. CLINICAL DATA: This is the patient's initial encounter. Patient reports that signs and symptoms have been present for 1 day and indicates a pain score of 7/10. MEDICAL/SURGICAL HISTORY: Hypertension. Carcinoma, breast. Hypothyroidism. Hysterectomy. Bila teral hip and knee replacement, Left side lumpectomy. COMPARISON: No prior exams available for comparison. TECHNIQUE: Multisequence, multiplanar MRI examination was performed without contrast and after the i ntravenous administration of 10 ml Gadavist (gadobutrol) contrast as a single exam dose. FINDINGS: There is an extensive cellulitis of the lower anterior neck which extends into the superior mediastin um along its anterior aspect and into the anterior chest wall. There is a focal 1.4 cm abscess in the left anterior strap musculature near the level of the glottis. There is also a poorly organized but presumed early abscess in the anterosuperior mediastinum near the sternoclavicular joint. There is ex tensive edema in the anterior strap musculature. Minimal marrow signal abnormality in the upper manub rium could represent an early osteomyelitis. No airway obstructing lesion identified. Thyroid mildly edematous as well. CONCLUSION: 1. Extensive cellulitis of the lower anterior neck extending into the anterior chest wall and upper mediastinum. Probable 14 mm abscess in the left anterior neck near the level of the glottis and addit ional developing abscess in the upper anterior mediastinum measuring 2 cm in diameter with a sinus tr act extending to the more superior abscess collection. Questionable early osteomyelitis of the manubr ium. Electronically signed by: Lorne Curran MD 01/03/2018 6:43 PM EDT
[2018-01-04] MEDS: HYDROmorphone PF Inj 2 MG/ML Vial IV.PUSH PRN ×2 (01:20→14:00)
[2018-01-04] MEDS: Piperacil/Tazo 3.375 GM Premix 50 ML IV.SIG SCH ×4 (01:32→18:22)
[2018-01-04] MEDS: Levothyroxine 112 MCG Tablet PO SCH (06:39)
[2018-01-04 06:56] LABS: Baso # (Auto) 0.1 th/mm3 (0.0-0.2); Baso % (Auto) 0.7 % (0.0-2.0); Eos # (Auto) 0.1 th/mm3 (0.0-0.4); Eos % (Auto) 1.6 % (0.0-4.0); Hematocrit 32.4 % (35.0-46.0); Hemoglobin 10.8 gm/dL (11.6-15.3); Lymph # (Auto) 1.2 th/mm3 (1.0-4.8); Lymph % (Auto) 14.3 % (9.0-44.0); Mean Corpuscular HGB Conc 33.3 % (32.0-36.0); Mean Corpuscular Hemoglobin 28.5 pg (27.0-34.0); Mean Corpuscular Volume 85.7 fL (80.0-100.0); Mean Platelet Volume 8.2 fL (7.0-11.0); Mono # (Auto) 1.3 th/mm3 (0.0-0.9); Mono % (Auto) 15.8 % (0.0-8.0); Neut # (Auto) 5.5 th/mm3 (1.8-7.7); Neut % (Auto) 67.6 % (16.0-70.0); Platelet Count 259 th/mm3 (150-450); Red Blood Count 3.78 mil/mm3 (4.00-5.30); White Blood Count 8.2 th/mm3 (4.0-11.0)
[2018-01-04 08:02] LABS: Calcium 8.8 mg/dL (8.5-10.1); Carbon Dioxide 31.2 meq/L (21.0-32.0); Magnesium 1.7 mg/dL (1.5-2.5)
[2018-01-04] MEDS: Digoxin 125 MCG Tablet PO SCH (10:26)
[2018-01-04] MEDS: Anastrozole 1 MG Tablet PO SCH (10:26)
[2018-01-04] MEDS: Metoprolol Tartrate 50 MG Tablet PO SCH ×2 (10:26→20:46)
[2018-01-04] MEDS: Furosemide 40 MG Tablet PO SCH (10:26)
[2018-01-04] MEDS: Gabapentin 300 MG Capsule PO SCH ×3 (10:26→18:22)
[2018-01-04] MEDS: Pantoprazole Sodium 20 MG DR Tablet PO SCH (10:27)
[2018-01-04] MEDS: ALPRAZolam 0.25 MG Tablet PO SCH ×2 (10:27→20:46)
--- NOTE | 2018-01-04 10:35 | P.PNIM ---
Subjective Interval history: pt with more difficulty talking and swallowing pills today left ant neck more swollen. Physical Exam Vital signs: Vital Signs 01/03/18 12:00 01/03/18 16:00 01/03/18 19:13 Temperature 97.7 F 98.2 F 98.3 F Pulse Rate 67 64 74 Respiratory Rate 16 16 19 Blood Pressure 139/75 135/78 125/66 Pulse Oximetry 92 L 96 90 L 01/03/18 19:57 01/03/18 20:20 01/04/18 00:00 Temperature 98.4 F 98.8 F Pulse Rate 76 87 Respiratory Rate 16 20 20 Blood Pressure 122/58 L 121/55 L Pulse Oximetry 92 L 95 01/04/18 04:00 01/04/18 08:00 Temperature 98.1 F 97.8 F Pulse Rate 67 62 Respiratory Rate 20 20 Blood Pressure 122/73 135/71 Pulse Oximetry 97 93 L Intake & Output 01/03/18 01/04/18 01/04/18 18:59 06:59 18:59 Intake Total 3850 / 3850 1400 / 1400 50 / 50 Balance 3850 / 3850 1400 / 1400 50 / 50 Weight 110.677 kg Intake: IV 3850 / 3850 1100 / 1100 50 / 50 NS + KCl 20 mEq Inj 1,000 ML @ 1000 / 1000 84 mls/hr IV.CONT .[id number] DONNA Rx#:[id number] NS Inj 1,000 ML @ 75 mls/hr IV. 2800 / 2800 CONT .[id number] DONNA Rx#:[id number] Zosyn 3.375 GM Premix 50 ML @ 50 / 50 100 / 100 50 / 50 100 mls/hr IV.SIG Q6H DONNA Rx#: [id number] Vancomycin Inj 1,750 MG In NS 1000 / 1000 Inj 500 ML @ 250 mls/hr IV.SIG Q18H DONNA Rx#:[id number] Oral 300 / 300 Other: # Voids 2 more difficulty speaking left ant neck swelling very tender to palpate left neck and chest and arm. some chest/arm erythema improved today. heart reg lung cta abd s/nt ext no edema Results - Labs CBC & Chem 7: 01/04/18 05:12 01/04/18 05:12 Laboratory Results - last 24 hr 01/03/18 01/03/18 01/03/18 10:51 10:51 10:51 WBC 9.6 RBC 3.68 L Hgb 10.5 L Hct 31.5 L MCV 85.5 MCH 28.4 MCHC 33.2 RDW 15.3 Plt Count 215 MPV 8.0 Neut % (Auto) 77.0 H Lymph % (Auto) 9.0 [place] % (Auto) 12.3 H Eos % (Auto) 1.3 Baso % (Auto) 0.4 Neut # (Auto) 7.4 Lymph # (Auto) 0.9 L [place] # (Auto) 1.2 H Eos # (Auto) 0.1 Baso # (Auto) 0.0 WBC Differential . Differential Comment Auto diff final Sodium 135 L Potassium 2.9 L* Chloride 96 L Carbon Dioxide 30.1 Anion Gap 9 BUN 21 H Creatinine 1.08 H Estimated GFR 50 L Random Glucose 163 H Calcium 8.3 L Magnesium TSH 1.830 01/04/18 01/04/18 05:12 05:12 WBC 8.2 RBC 3.78 L Hgb 10.8 L Hct 32.4 L MCV 85.7 MCH 28.5 MCHC 33.3 RDW 15.0 Plt Count 259 MPV 8.2 Neut % (Auto) 67.6 Lymph % (Auto) 14.3 [place] % (Auto) 15.8 H Eos % (Auto) 1.6 Baso % (Auto) 0.7 Neut # (Auto) 5.5 Lymph # (Auto) 1.2 [place] # (Auto) 1.3 H Eos # (Auto) 0.1 Baso # (Auto) 0.1 WBC Differential . Differential Comment Auto diff final Sodium 137 Potassium 4.0 D Chloride 98 Carbon Dioxide 31.2 Anion Gap 8 BUN 18 Creatinine 1.05 H Estimated GFR 52 L Random Glucose 97 Calcium 8.8 Magnesium 1.7 TSH Microbiology 01/02/18 18:15 Blood - Peripheral Aerobic Blood Culture - Preliminary No growth in 1 day 01/02/18 18:15 Blood - Peripheral Anaerobic Blood Culture - Preliminary No growth in 1 day 01/02/18 18:30 Blood - Peripheral Aerobic Blood Culture - Preliminary No growth in 1 day 01/02/18 18:30 Blood - Peripheral Anaerobic Blood Culture - Preliminary No growth in 1 day - Imaging Impressions Humerus CT 01/03/18 00:00 Humerus is unremarkable. CONCLUSION: 1. I don't see a defined fluid collection to suggest a deep space abscess. 2. Ultrasound could be used to follow. Neck MRI 01/03/18 00:00 CONCLUSION: 1. Extensive cellulitis of the lower anterior neck extending into the anterior chest wall and upper mediastinum. Probable 14 mm abscess in the left anterior neck near the level of the glottis and additional developing abscess in the upper anterior mediastinum measuring 2 cm in diameter with a sinus tract extending to the more superior abscess collection. Questionable early osteomyelitis of the manubrium. Soft Tissue Neck CT 01/03/18 00:00 CONCLUSION: 1. Enlargement of the left strap muscles suggestive of injury and possible hematoma. Diffuse subcutaneous edema is also noted surrounding the strap muscles particularly on the left. Assessment and Plan - Assessment (1) Cellulitis Code(s): L03.90 - Cellulitis, unspecified Status: Acute Plan: Cellulitis, LUE/shoulder/neck Lymphedema LUE Ant neck/mediastinum abscess. airway compromise - Pt is a 72 y/o female with chronic left upper extremity lymphedema s/p left breast lumpectomy and axillary node surgery - Pt presented to the ED at [facility] [place] on 01/02/18 with left arm pain and redness. The patient states that the pain started three days prior to arrival in the ED. The patient states that the pain is localized to the left shoulder down to the left hand but also involves some spasm of her left neck. - She has visited her primary care physician twice regarding this and has been given Rocephin injection 2 as an outpatient and was started on Bactrim 1 day prior to arrival per record review. The arm swelling, pain and redness have increased despite these interventions. - LUE US was negative for DVT - Blood cultures were drawn in the ED and are ngtd MRI neck 01/03 1. Extensive cellulitis of the lower anterior neck extending into the anterior chest wall and upper mediastinum. Probable 14 mm abscess in the left anterior neck near the level of the glottis and additional developing abscess in the upper anterior mediastinum measuring 2 cm in diameter with a sinus tract extending to the more superior abscess collection. Questionable early osteomyelitis of the manubrium. Pt having more difficulty speaking and swallowing today spoke with [employer] and CTS. Move to ICU for closer monitoring and surgical intervention as required cont broad abx with vanco and zosyn. ID consult placed hold eliquis cont ivf. ADDENDUM: PT SEEN BY [employer]ER[employer] OFFICER DR MYLES AND CTS DR DO. THEY HAVE EVALUATED PT AND REVIEWED HER FILMS. THEY RECOMMEND NO SURGERY AT THIS TIME JUST IV ABX. THEY RECOMMEND CONSULTING ENT. PT AIRWAY IS PROTECTED AT THIS TIME. A. fib - Cont. home meds HTN - Home meds continued - Monitor Hypothyroidism - Continue home medication. (2) Lymphedema Code(s): I89.0 - Lymphedema, not elsewhere classified Status: Chronic (3) Hypothyroidism Code(s): E03.9 - Hypothyroidism, unspecified Status: Chronic (4) Hypertension Code(s): I10 - Essential (primary) hypertension Status: Chronic (5) GERD (gastroesophageal reflux disease) Code(s): K21.9 - Gastro-esophageal reflux disease without esophagitis Status: Acute (6) Atrial fibrillation Code(s): I48.91 - Unspecified atrial fibrillation Status: Chronic (1) Cellulitis Qualifiers: Site of cellulitis: extremity Site of cellulitis of extremity: upper extremity Laterality: left Qualified Code(s): L03.114 - Cellulitis of left upper limb
--- NOTE | 2018-01-04 10:36 | P.CONID ---
History of Present Illness Service: Infectious Disease Consult date: 01/04/18 Requesting Physician: Ashok Bonilla Reason for Consult: Evaluate patient with abscess in the neck chest and mediastinum Primary Care Provider: UNKNOWN Chief Complaint: Arm pain, swelling, redness History of Present Illness: Patient seen and examined. Records reviewed. Patient is not a very good historian. Found all previous admissions under the name "Kinjal Welch" Patient is a 72-year-old female presented to the hospital complaining of pain, swelling, and redness in her left upper extremity as well as in her neck and left chest. Her problems started December 30 when she started experiencing swelling and pain in her left upper extremity. It progressed to spreading of the pain and swelling to her left neck and left shoulder as well as left anterior chest. She was seen by her primary care physician, and she was given a shot of antibiotics and was given oral antibiotics. She was also seen by her orthopedic doctor at that time because she wanted her left shoulder evaluated. According to the patient both physician told her to go to the hospital for further evaluation and treatment. She denies any sore throat. She has not had any coughing. She apparently had some episodes of nausea and dry heaving when she started having the problem. She denies having any kind of injury or insect bite to her left upper extremity. Patient stated that she has known arthritis on her left shoulder, and has [id number] problem. Patient has had previous lumpectomy and lymph node dissection for left breast cancer back in 2013. She has had problem with cellulitis in the left upper extremity. She can remember the last time she had an infection. She has chronic lymphedema in that arm. Since admission she has not been febrile. Her white count is normal. She has had imaging studies done and there was no evidence of DVT in the left upper extremity. She has evidence of edema on her neck with some extension into the upper mediastinum. There also describing 2 small fluid collections. Today patient had noted pain when she swallows, but she points mostly to her left chest area when she swallows. She has been transferred to the ICU for further closer monitoring. Infectious disease consultation has been requested to assist with evaluation and treatment. Review of Systems Constitutional: Denies chills, Denies fever(s), Denies malaise Eyes: Denies discharge, Denies dry eyes Ears, Nose, Mouth, and Throat: Reports pain with swallowing, Denies difficulty swallowing, Denies dry mouth, Denies lip swelling, Denies mouth pain, Denies nasal congestion, Denies nasal discharge, Denies sore throat Cardiovascular: Reports chest pain, Denies shortness of breath Respiratory: Denies chest congestion, Denies cough, Denies shortness of breath Gastrointestinal: Reports nausea, Reports vomiting, Denies abdominal pain, Denies loose stools Genitourinary: Denies difficulty urinating, Denies painful urination Musculoskeletal: Reports neck pain, Denies back pain Skin/Breast: Denies rash, Denies sores Neurologic: Denies localized weakness PMFSH - History History Provided By: Patient - Medical History Medical History: Medical History (Last Updated 01/04/18 @ 11:19 by Mera Pritchard MD) Lymphedema (Chronic) Morbid obesity (Acute) Hypothyroidism (Chronic) Hypertension (Chronic) GERD (gastroesophageal reflux disease) (Acute) Atrial fibrillation (Chronic) Anxiety CKD (chronic kidney disease) stage 3, GFR 30-59 ml/min Group B streptococcal infection High cholesterol Lumbar radiculopathy 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 - Surgical History Surgical History: Surgical History (Last Updated 01/04/18 @ 11:20 by Mera Pritchard MD) History of hip replacement, total History of lumpectomy of left breast History of lymph node dissection of left axilla History of total abdominal hysterectomy and bilateral salpingo-oophorectomy Hx of total knee replacement - Family History Family History: Family History (Last Updated 01/03/18 @ 05:54 by Jonny Johnson MD, PhD) Mother Lung cancer Father Coronary artery disease - Tobacco History Second Hand Smoke Exposure: No Smoking Status: Former smoker Tobacco Type: Cigarettes Number of Pack Years (if former smoker): 5 Smoking End Date: 1986 - Alcohol History How Often Do You Have a Drink Containing Alcohol: Never - Substance Use History Substance History: No History of Abuse - Travel History Recent Travel in the [place] Within the Last 8 Weeks: No Recent Travel Out of the Country Within the Last 8 Weeks: No - Immunization History Tetanus Immunization: Unsure Hx Influenza Vaccine This Season: No Medications and Allergies Active Medications: Active Medications Alprazolam (Xanax) 0.25 mg PO BID DONNA Last Admin: 01/03/18 23:26 Dose: 0.25 mg Anastrozole (Arimidex) 1 mg PO DAILY [facility] Last Admin: 01/03/18 08:12 Dose: 1 mg Digoxin (Lanoxin) 125 mcg PO DAILY [facility] Last Admin: 01/03/18 08:13 Dose: 125 mcg Duloxetine HCl (Cymbalta) 30 mg PO DAILY [facility] Last Admin: 01/03/18 08:13 Dose: 30 mg Furosemide (Lasix) 40 mg PO DAILY [facility] Last Admin: 01/03/18 08:13 Dose: 40 mg Gabapentin (Neurontin) 600 mg PO TID [facility] Last Admin: 01/03/18 18:30 Dose: 600 mg Hydromorphone HCl (Dilaudid Pf Inj) 1 mg IV.PUSH Q4H PRN PRN Reason: PAIN LEVEL 3-10 Last Admin: 01/04/18 01:20 Dose: 1 mg Pharmacy Profile Note (Vancomycin Consult Pharmacy) 0 mls @ 0 mls/hr OTHER UNSCH [facility] Potassium Chloride/Sodium Chloride (Ns + Kcl 20 Meq Inj) 1,000 mls @ 84 mls/hr IV.CONT .[id number] [facility] Last Admin: 01/03/18 23:27 Dose: 84 mls/hr Vancomycin HCl 1,750 mg/ (Sodium Chloride) 517.5 mls @ 250 mls/hr IV.SIG Q18H [facility] Last Infusion: 01/03/18 18:40 Dose: Infused Piperacillin/Tazobactam/Dextrose (Zosyn 3.375 Gm Premix) 50 mls @ 100 mls/hr IV.SIG Q6H [facility] Last Infusion: 01/04/18 07:40 Dose: Infused Levothyroxine Sodium (Synthroid) 112 mcg PO DAILY@0600 [facility] Last Admin: 01/04/18 06:39 Dose: 112 mcg Levothyroxine Sodium (Synthroid) 25 mcg PO DAILY@0600 [facility] Last Admin: 01/04/18 06:39 Dose: 25 mcg Metoprolol Tartrate (Lopressor) 50 mg PO BID [facility] Last Admin: 01/03/18 23:26 Dose: 50 mg Miscellaneous Information ([facility] Ordered Lab Info) 0 each OTHER ONCE ONE Stop: 01/05/18 03:46 Ondansetron HCl (Zofran Inj) 4 mg IV.PUSH Q6H PRN PRN Reason: nausea, vomiting Pantoprazole Sodium (Protonix) 20 mg PO DAILY [facility] Last Admin: 01/03/18 08:13 Dose: 20 mg Sodium Chloride (Ns Flush) 2 ml IV.FLUSH BID [facility] Last Admin: 01/03/18 23:26 Dose: 2 ml Sodium Chloride (Ns Flush) 2 ml IV.FLUSH PRN PRN PRN Reason: FLUSH AFTER USING IV ACCESS Allergies Allergy/AdvReac Type Severity Reaction Status Date / Time amlodipine Allergy Mild UNKNOWN Verified 01/02/18 17:30 lisinopril Allergy Mild UNKNOWN Verified 01/02/18 17:30 nifedipine Allergy Mild UNKNOWN Verified 01/02/18 17:30 NSAIDS (Non-Steroidal Allergy Mild Hives Verified 01/02/18 17:30 Anti-Inflamma morphine AdvReac Mild Nausea/Vomi Verified 01/02/18 17:28 ting STEROIDS Allergy Severe Anaphylaxis Uncoded 01/02/18 17:28 Home Medications Medication Instructions Recorded Confirmed Type alprazolam 0.25 mg PO TID PRN 01/02/18 01/03/18 History anastrozole 1 mg PO DAILY 01/02/18 01/02/18 History apixaban [Eliquis] 5 mg PO BID 01/02/18 01/02/18 History furosemide [Lasix] 40 mg PO DAILY 01/02/18 01/02/18 History gabapentin 300 mg PO DAILY 01/02/18 01/02/18 History hydrocodone-acetaminophen 1 tab PO Q4H PRN 01/02/18 01/02/18 History levothyroxine 137 mcg PO DAILY 01/02/18 01/02/18 History metoprolol tartrate 100 mg PO BID 01/02/18 01/02/18 History omeprazole 20 mg PO DAILY 01/02/18 01/02/18 History potassium chloride [K-Tab] 10 meq PO BID 01/02/18 01/02/18 History simvastatin 10 mg PO QPM 01/02/18 01/02/18 History Exam Vital signs: Vital Signs 01/03/18 12:00 01/03/18 16:00 01/03/18 19:13 Temperature 97.7 F 98.2 F 98.3 F Pulse Rate 67 64 74 Respiratory Rate 16 16 19 Blood Pressure 139/75 135/78 125/66 Pulse Oximetry 92 L 96 90 L 01/03/18 19:57 01/03/18 20:20 01/04/18 00:00 Temperature 98.4 F 98.8 F Pulse Rate 76 87 Respiratory Rate 16 20 20 Blood Pressure 122/58 L 121/55 L Pulse Oximetry 92 L 95 01/04/18 04:00 01/04/18 08:00 Temperature 98.1 F 97.8 F Pulse Rate 67 62 Respiratory Rate 20 20 Blood Pressure 122/73 135/71 Pulse Oximetry 97 93 L Intake & Output 01/03/18 01/04/18 01/04/18 18:59 06:59 18:59 Intake Total 3850 / 3850 1400 / 1400 50 / 50 Balance 3850 / 3850 1400 / 1400 50 / 50 Weight 110.677 kg Intake: IV 3850 / 3850 1100 / 1100 50 / 50 NS + KCl 20 mEq Inj 1,000 ML @ 1000 / 1000 84 mls/hr IV.CONT .[id number] [facility]NA Rx#:[id number] NS Inj 1,000 ML @ 75 mls/hr IV. 2800 / 2800 CONT .[id number] DONNA Rx#:[id number] Zosyn 3.375 GM Premix 50 ML @ 50 / 50 100 / 100 50 / 50 100 mls/hr IV.SIG Q6H [facility]NA Rx#: [id number] Vancomycin Inj 1,750 MG In NS 1000 / 1000 Inj 500 ML @ 250 mls/hr IV.SIG Q18H [facility]NA Rx#:[id number] Oral 300 / 300 Other: # Voids 2 Narrative: Physical Examination GENERAL: Patient is a well-nourished, well-developed female, awake and alert , not in respiratory distress. Having grimacing episodes and she states this is due to pain on her chest when she tries to swallow SKIN: Warm and dry. No generalized rash, no ecchymoses and no evidence of embolic lesions. HEAD: Atraumatic. Normocephalic. No temporal wasting, or tenderness. EYES: [place] conjunctiva. No petechia or hemorrhage. Pupils equal, round and reactive to light. Extraocular movements full and intact. No scleral icterus. No injection or drainage. EARS, NOSE AND THROAT: Nose without bleeding or purulent nasal discharge. No sinus tenderness. Mucous membranes pink and moist. No oral lesions noted. No exudate. No oral thrush. NECK: Has tenderness, swelling induration of anterior neck that extends to the left side of her neck, Has erythema down to supraclavicular area, with tenderness, no fluctuance, She is also very tender anterior chest that goes down to the sternal region and down to her L anterior chest. BREAST: Looks ok with no induration on breast CARDIOVASCULAR: Regular rate and rhythm. No murmurs, rubs or gallops heard RESPIRATORY: Clear to auscultation. Breath sounds equal bilaterally. No rales , wheezing or rhonchi ABDOMEN: Soft, non-tender, nondistended. Bowel sounds present and normoactive. No guarding. No rebound. No organomegaly. EXTREMITIES: No clubbing, cyanosis. Her LUE is larger compared to her RUE, and she has patches of erythema. She complains of pain under her L armpit when her LUE gets moved passively. No calf tenderness. Well perfused and warm. NEUROLOGICAL: Awake and alert. Cranial nerves grossly intact. Motor grossly within normal limits. PSYCHIATRIC: Normal affect, calm and cooperative. LINE: No evidence of infection Results - Labs CBC & Chem 7: 01/04/18 05:12 01/04/18 05:12 Labs: Laboratory Results - last 24 hr 01/03/18 01/03/18 01/03/18 10:51 10:51 10:51 WBC 9.6 RBC 3.68 L Hgb 10.5 L Hct 31.5 L MCV 85.5 MCH 28.4 MCHC 33.2 RDW 15.3 Plt Count 215 MPV 8.0 Neut % (Auto) 77.0 H Lymph % (Auto) 9.0 [place] % (Auto) 12.3 H Eos % (Auto) 1.3 Baso % (Auto) 0.4 Neut # (Auto) 7.4 Lymph # (Auto) 0.9 L [place] # (Auto) 1.2 H Eos # (Auto) 0.1 Baso # (Auto) 0.0 WBC Differential . Differential Comment Auto diff final Sodium 135 L Potassium 2.9 L* Chloride 96 L Carbon Dioxide 30.1 Anion Gap 9 BUN 21 H Creatinine 1.08 H Estimated GFR 50 L Random Glucose 163 H Calcium 8.3 L Magnesium TSH 1.830 01/04/18 01/04/18 05:12 05:12 WBC 8.2 RBC 3.78 L Hgb 10.8 L Hct 32.4 L MCV 85.7 MCH 28.5 MCHC 33.3 RDW 15.0 Plt Count 259 MPV 8.2 Neut % (Auto) 67.6 Lymph % (Auto) 14.3 [place] % (Auto) 15.8 H Eos % (Auto) 1.6 Baso % (Auto) 0.7 Neut # (Auto) 5.5 Lymph # (Auto) 1.2 [place] # (Auto) 1.3 H Eos # (Auto) 0.1 Baso # (Auto) 0.1 WBC Differential . Differential Comment Auto diff final Sodium 137 Potassium 4.0 D Chloride 98 Carbon Dioxide 31.2 Anion Gap 8 BUN 18 Creatinine 1.05 H Estimated GFR 52 L Random Glucose 97 Calcium 8.8 Magnesium 1.7 TSH - Imaging Impressions Humerus CT 01/03/18 00:00 Humerus is unremarkable. CONCLUSION: 1. I don't see a defined fluid collection to suggest a deep space abscess. 2. Ultrasound could be used to follow. Neck MRI 01/03/18 00:00 CONCLUSION: 1. Extensive cellulitis of the lower anterior neck extending into the anterior chest wall and upper mediastinum. Probable 14 mm abscess in the left anterior neck near the level of the glottis and additional developing abscess in the upper anterior mediastinum measuring 2 cm in diameter with a sinus tract extending to the more superior abscess collection. Questionable early osteomyelitis of the manubrium. Soft Tissue Neck CT 01/03/18 00:00 CONCLUSION: 1. Enlargement of the left strap muscles suggestive of injury and possible hematoma. Diffuse subcutaneous edema is also noted surrounding the strap muscles particularly on the left. Chest X-Ray 01/02/18 18:17 CONCLUSION: Mild cardiomegaly with probable basilar atelectasis. Surgical clips left axilla. No significant effusion. Venous Doppler Study 01/02/18 18:20 CONCLUSION: 1. The study is negative for upper extremity deep venous thrombosis. 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 Assessment and Plan - Plan Impression LUE cellulitis Cellulitis L neck, anterior chest, etiology? Hx lymphedema LUE from prior axilary LN dissection Hx GBS sepsis and R psoas abscess 2015 Recommendation Agree with current IV Abx Give short course of Clindamycin Follow C/S MOnitor for airway compromise Monitor progress I will follow along with you Thank you for this consultation D/W RN D/W Dr Christy ([facility])
[2018-01-04] MEDS: Vancomycin Inj 1,750 MG in Sodium Chlor 0.9% Inj 500 ML IV.SIG SCH (11:22)
--- NOTE | 2018-01-04 12:21 | P.CON ---
History of Present Illness Service: CT surgery Consult date: 01/04/18 Requesting Physician: Ashok Bonilla Reason for Consult: Cellulitis, possible mediastinal abscess Primary Care Provider: UNKNOWN Chief Complaint: Arm pain, swelling, redness History of Present Illness: 72-year-old female with chronic left upper extremity lymphedema status post history of left axillary node surgery that presented with a one day history of left neck and arm pain and swelling. The pain has gradually become worse to the point of her presenting to the ED. She has visited her primary care physician twice regarding this including earlier on the day of arrival. She underwent a neck CT as well as Neck MRI which is remarkable for cellulitis with a possible 1.4 abscess in the left anterior neck as well as a second area a little more inferior measuring ~2 x 0.8 cm adjacent to the trachea on the left. There is also mention of possible osteomyelitis of the manubrium, but there are no complaints of anterior chest pain or signs of bone involvement/ destruction on CT. She denies fevers and has a normal WBC. 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 Has 2 adult sons , No tobacco since around 1986, prior to that smoked approximately pack per day for 5 years Denies alcohol or illicit drug use Review of Systems Constitutional: Reports body ache(s), Reports fatigue, Reports malaise Eyes: Reports blind spots, Reports blurry vision, Reports bulging eyes, Reports change in vision, Reports double vision, Reports discharge, Reports dry eyes, Reports floaters, Reports irritation, Reports itchy eyes, Reports loss of vision , Reports pain, Reports requires corrective lenses, Reports sensitivity to light , Reports other Ears, Nose, Mouth, and Throat: Reports difficulty swallowing, Reports dry mouth , Reports facial pain, Reports headache(s), Reports neck pain, Reports pain with swallowing, Reports throat swelling Cardiovascular: Reports chest pain, Reports chest pain at rest, Reports chest pain with activity, Reports excessive sweating, Reports fainting, Reports fast heart rate, Reports foot swelling, Reports generalized swelling, Reports irregular heart rhythm, Reports leg pain with activity, Reports leg sores, Reports leg swelling, Reports lightheadedness, Reports radiating jaw, neck or arm pain, Reports rapid, pounding, or irregular heartbeat, Reports shortness of breath, Reports shortness of breath with activity, Reports shortness of breath when lying down, Reports shortness of breath causing sudden awakening, Reports slow heart rate, Reports other Respiratory: Reports change in phlegm color, Reports chest congestion, Reports cough, Reports coughing up blood, Reports excessive phlegm production, Reports pain on inspiration, Reports pain with cough, Reports shortness of breath, Reports shortness of breath with activity, Reports snoring, Reports stridor, Reports wheezing, Reports other Gastrointestinal: Reports abdominal pain, Reports belching, Reports black, tarry stools, Reports bloating, Reports bright, red blood in stools, Reports change in bowel habits, Reports constant urge to pass stool, Reports change in stools, Reports coffee ground vomit, Reports constipation, Reports cramping, Reports difficulty swallowing, Reports excessive passing of gas, Reports feeling full early, Reports heartburn, Reports incontinent of stools, Reports loose stools, Reports nausea, Reports pain with swallowing, Reports vomiting, Reports vomiting blood, Reports other Genitourinary: Reports abnormal periods, Reports abnormal vaginal bleeding, Reports absent period, Reports bleeding between periods, Reports blood in urine , Reports difficulty starting urination, Reports difficulty urinating, Reports dribbling after urination, Reports frequent nighttime urination, Reports genital itching, Reports genital lesions, Reports heavy periods, Reports hot flashes, Reports light periods, Reports nipple discharge, Reports painful intercourse, Reports painful periods, Reports painful urination, Reports pelvic pain, Reports prolapse symptoms, Reports sexual problems, Reports side pain, Reports urinary incontinence, Reports urinary urgency, Reports vaginal discharge , Reports vaginal dryness, Reports vaginal odor, Reports vaginal itching, Reports other Skin/Breast: Reports acne, Reports bleeding lesions, Reports boil, Reports breast swelling, Reports breast skin changes, Reports breast pain, Reports breast lump, Reports change in breast shape, Reports change in hair, Reports change in skin color, Reports changing lesions, Reports dry skin, Reports excessive hair growth, Reports hair loss, Reports itching, Reports lesions, Reports nail changes, Reports new lesions, Reports nipple discharge, Reports non -healing lesions, Reports redness, Reports sensitivity to light, Reports rash, Reports skin pain, Reports skin ulcer, Reports sores, Reports stretch mercado, Reports unusual bruising, Reports wounds, Reports yellowing of the skin, Reports other Neurologic: Reports abnormal hearing, Reports abnormal movements, Reports abnormal speech, Reports abnormal walking, Reports behavioral changes, Reports burning sensations, Reports confusion, Reports dizziness, Reports fainting, Reports frequent falls, Reports headache(s), Reports lack of coordination, Reports localized weakness, Reports loss of vision, Reports memory loss, Reports numbness, Reports other visual disturbances, Reports radiating pain, Reports restless legs, Reports convulsions, Reports seizure-like activity, Reports sensory deficit, Reports tingling, Reports tingling/numbness/burning sensations, Reports tremor(s), Reports unsteadiness, Reports weakness, Reports other Psychiatric: Reports abnormal sleep pattern, Reports anxiety, Reports behavioral changes, Reports change in appetite, Reports change in sex drive, Reports confusion, Reports depression, Reports difficulty concentrating, Reports hearing things others do not hear, Reports hopelessness, Reports irritability, Reports lack of enjoyment, Reports memory loss, Reports mood swings, Reports panic attacks, Reports paranoia, Reports seeing things others do not see, Reports sensing things others do not sense, Reports tactile hallucinations, Reports thoughts of hurting/killing others, Reports thoughts of hurting/killing yourself, Reports other Endocrine: Reports cold intolerance, Reports excessive sweating, Reports flushing, Reports heat intolerance, Reports increased hunger, Reports increased thirst, Reports increased urination, Reports rapid, pounding, or irregular heartbeat, Reports other Hematologic/Lymphatic: Reports easy bleeding, Reports easy bruising, Reports enlarged lymph nodes, Reports other Allergic/Immunologic: Reports GI upset with certain foods, Reports hives, Reports itchy eyes, Reports lip swelling, Reports seasonal runny nose, Reports throat swelling, Reports tongue swelling, Reports wheezing, Reports other PMFSH - History History Provided By: Patient - Medical History Medical History: Medical History (Last Updated 01/04/18 @ 11:19 by Mera Pritchard MD) Lymphedema (Chronic) Morbid obesity (Acute) Hypothyroidism (Chronic) Hypertension (Chronic) GERD (gastroesophageal reflux disease) (Acute) Atrial fibrillation (Chronic) Anxiety CKD (chronic kidney disease) stage 3, GFR 30-59 ml/min Group B streptococcal infection High cholesterol Lumbar radiculopathy 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 - Surgical History Surgical History: Surgical History (Last Updated 01/04/18 @ 11:20 by Mera Pritchard MD) History of hip replacement, total History of lumpectomy of left breast History of lymph node dissection of left axilla History of total abdominal hysterectomy and bilateral salpingo-oophorectomy Hx of total knee replacement - Family History Family History: Family History (Last Updated 01/03/18 @ 05:54 by Jonny Johnson MD, PhD) Mother Lung cancer Father Coronary artery disease - Tobacco History Second Hand Smoke Exposure: No Smoking Status: Former smoker Tobacco Type: Cigarettes Number of Pack Years (if former smoker): 5 Smoking End Date: 1986 - Alcohol History How Often Do You Have a Drink Containing Alcohol: Never - Substance Use History Substance History: No History of Abuse - Travel History Recent Travel in the [place] Within the Last 8 Weeks: No Recent Travel Out of the Country Within the Last 8 Weeks: No - Immunization History Tetanus Immunization: Unsure Hx Influenza Vaccine This Season: No Medications and Allergies Active Medications: Active Medications Alprazolam (Xanax) 0.25 mg PO BID [facility] Last Admin: 01/04/18 10:27 Dose: Not Given Anastrozole (Arimidex) 1 mg PO DAILY [facility] Last Admin: 01/04/18 10:26 Dose: Not Given Digoxin (Lanoxin) 125 mcg PO DAILY [facility] Last Admin: 01/04/18 10:26 Dose: Not Given Duloxetine HCl (Cymbalta) 30 mg PO DAILY [facility] Last Admin: 01/04/18 10:26 Dose: Not Given Furosemide (Lasix) 40 mg PO DAILY [facility] Last Admin: 01/04/18 10:26 Dose: Not Given Gabapentin (Neurontin) 600 mg PO TID [facility] Last Admin: 01/04/18 10:26 Dose: Not Given Hydromorphone HCl (Dilaudid Pf Inj) 1 mg IV.PUSH Q4H PRN PRN Reason: PAIN LEVEL 3-10 Last Admin: 01/04/18 01:20 Dose: 1 mg Pharmacy Profile Note (Vancomycin Consult Pharmacy) 0 mls @ 0 mls/hr OTHER UNSCH [facility] Potassium Chloride/Sodium Chloride (Ns + Kcl 20 Meq Inj) 1,000 mls @ 84 mls/hr IV.CONT .[id number] [facility] Last Admin: 01/03/18 23:27 Dose: 84 mls/hr Vancomycin HCl 1,750 mg/ (Sodium Chloride) 517.5 mls @ 250 mls/hr IV.SIG Q18H [facility] Last Admin: 01/04/18 11:22 Dose: 250 mls/hr Piperacillin/Tazobactam/Dextrose (Zosyn 3.375 Gm Premix) 50 mls @ 100 mls/hr IV.SIG Q6H [facility] Last Infusion: 01/04/18 07:40 Dose: Infused Clindamycin/Sodium Chloride (Cleocin 900 Mg/Ns Premix) 900 mg in 50 mls @ 100 mls/hr IV.SIG Q8H [facility] Stop: 01/06/18 04:29 Levothyroxine Sodium (Synthroid) 112 mcg PO DAILY@0600 [facility] Last Admin: 01/04/18 06:39 Dose: 112 mcg Levothyroxine Sodium (Synthroid) 25 mcg PO DAILY@0600 [facility] Last Admin: 01/04/18 06:39 Dose: 25 mcg Metoprolol Tartrate (Lopressor) 50 mg PO BID [facility] Last Admin: 01/04/18 10:26 Dose: Not Given Miscellaneous Information ([facility] Ordered Lab Info) 0 each OTHER ONCE ONE Stop: 01/05/18 03:46 Ondansetron HCl (Zofran Inj) 4 mg IV.PUSH Q6H PRN PRN Reason: nausea, vomiting Pantoprazole Sodium (Protonix) 20 mg PO DAILY [facility] Last Admin: 01/04/18 10:27 Dose: Not Given Sodium Chloride (Ns Flush) 2 ml IV.FLUSH BID [facility] Last Admin: 01/04/18 11:13 Dose: 2 ml Sodium Chloride (Ns Flush) 2 ml IV.FLUSH PRN PRN PRN Reason: FLUSH AFTER USING IV ACCESS Allergies Allergy/AdvReac Type Severity Reaction Status Date / Time amlodipine Allergy Mild UNKNOWN Verified 01/02/18 17:30 lisinopril Allergy Mild UNKNOWN Verified 01/02/18 17:30 nifedipine Allergy Mild UNKNOWN Verified 01/02/18 17:30 NSAIDS (Non-Steroidal Allergy Mild Hives Verified 01/02/18 17:30 Anti-Inflamma morphine AdvReac Mild Nausea/Vomi Verified 01/02/18 17:28 ting STEROIDS Allergy Severe Anaphylaxis Uncoded 01/02/18 17:28 Home Medications Medication Instructions Recorded Confirmed Type alprazolam 0.25 mg PO TID PRN 01/02/18 01/03/18 History anastrozole 1 mg PO DAILY 01/02/18 01/02/18 History apixaban [Eliquis] 5 mg PO BID 01/02/18 01/02/18 History furosemide [Lasix] 40 mg PO DAILY 01/02/18 01/02/18 History gabapentin 300 mg PO DAILY 01/02/18 01/02/18 History hydrocodone-acetaminophen 1 tab PO Q4H PRN 01/02/18 01/02/18 History levothyroxine 137 mcg PO DAILY 01/02/18 01/02/18 History metoprolol tartrate 100 mg PO BID 01/02/18 01/02/18 History omeprazole 20 mg PO DAILY 01/02/18 01/02/18 History potassium chloride [K-Tab] 10 meq PO BID 01/02/18 01/02/18 History simvastatin 10 mg PO QPM 01/02/18 01/02/18 History Physical Exam Vital signs: Vital Signs 01/03/18 12:00 01/03/18 16:00 01/03/18 19:13 Temperature 97.7 F 98.2 F 98.3 F Pulse Rate 67 64 74 Respiratory Rate 16 16 19 Blood Pressure 139/75 135/78 125/66 Pulse Oximetry 92 L 96 90 L 01/03/18 19:57 01/03/18 20:20 01/04/18 00:00 Temperature 98.4 F 98.8 F Pulse Rate 76 87 Respiratory Rate 16 20 20 Blood Pressure 122/58 L 121/55 L Pulse Oximetry 92 L 95 01/04/18 04:00 01/04/18 08:00 Temperature 98.1 F 97.8 F Pulse Rate 67 62 Respiratory Rate 20 20 Blood Pressure 122/73 135/71 Pulse Oximetry 97 93 L Intake & Output 01/03/18 01/04/18 01/04/18 18:59 06:59 18:59 Intake Total 3850 / 3850 1400 / 1400 200 / 200 Balance 3850 / 3850 1400 / 1400 200 / 200 Weight 110.677 kg Intake: IV 3850 / 3850 1100 / 1100 50 / 50 NS + KCl 20 mEq Inj 1,000 ML @ 1000 / 1000 84 mls/hr IV.CONT .[id number] [facility] Rx#:[id number] NS Inj 1,000 ML @ 75 mls/hr IV. 2800 / 2800 CONT .[id number] [facility] Rx#:[id number] Zosyn 3.375 GM Premix 50 ML @ 50 / 50 100 / 100 50 / 50 100 mls/hr IV.SIG Q6H [facility] Rx#: [id number] Vancomycin Inj 1,750 MG In NS 1000 / 1000 Inj 500 ML @ 250 mls/hr IV.SIG Q18H [facility] Rx#:[id number] Oral 300 / 300 150 / 150 Other: # Voids 2 1 Date of Last Bowel Movement 01/04/18 # Bowel Movements 1 - Constitutional moderate distress, obese, chronically ill appearing - Routine HEENT Exam Head: Present: normocephalic, atraumatic Eye: Present: EOMI, PERRL, normal accommodation ENT: Present: mucous membranes moist - Routine Neck Exam Present: tenderness, swelling, trachea midline. Absent: supple, full ROM, JVD, carotid bruit, normal carotid upstroke - Routine Respiratory Exam Present: CTA bilaterally - Routine Cardiovascular Exam Present: RRR - Routine Abdominal Exam Present: soft, normoactive bowel sounds - Routine Extremities Exam Present: edema, pulses intact Comments: left arm with tenderness of left shoulder and supraclavicular area - Routine Neurological Exam Present: alert, oriented X3 - Routine Psychiatric Exam Present: normal affect Assessment and Plan - Assessment (1) Lymphadenitis, acute Code(s): L04.9 - Acute lymphadenitis, unspecified Status: Acute (2) Cellulitis Code(s): L03.90 - Cellulitis, unspecified Status: Acute (3) Lymphedema Code(s): I89.0 - Lymphedema, not elsewhere classified Status: Chronic (4) Morbid obesity Code(s): E66.01 - Morbid (severe) obesity due to excess calories Status: Acute - Plan 72 y/o female presents with rather rapid onset left arm and neck pain/swelling. She has a h/o left arm lymphedema secondary to left axillary dissection performed some years ago. She is markedly tender in the left proximal upper extremity extending to the neck and mandible. I reviewed her imaging studies and she has 2 areas of concern for potential abscess formation which are above the sternal notch. I do not see obvious mediastinal involvement at this time. Recommend ENT consultation as well as ID consultation. I do not see a role for surgical exploration at this time relative to the mediastinum. If there is no clinical improvement with antibiotics, then Interventional Radiology should be consulted for consideration of percutaneous aspiration/drainage. Will continue to follow her course. Discussed Condition With: patient, Dr. Bonilla and Dr. Henson. (2) Cellulitis Qualifiers: Site of cellulitis: extremity Site of cellulitis of extremity: upper extremity Laterality: left Qualified Code(s): L03.114 - Cellulitis of left upper limb
[2018-01-04] MEDS: Clindamycin 900 mg/NS Premix 900 MG/50 ML PIGGYBACK IV.SIG SCH ×2 (13:59→20:46)
[2018-01-04] MEDS ORDERED: Dexamethasone Inj 20 MG/5 ML Vial IV.PUSH ONE (16:29)
--- NOTE | 2018-01-04 16:37 | P.CON ---
History of Present Illness Service: ENT Consult date: 01/04/18 Reason for Consult: Left neck swelling Primary Care Provider: UNKNOWN Chief Complaint: Arm pain, swelling, redness History of Present Illness: 72 year old female, chronic left upper extremity edema. Post left axillary node surgery. Recent onset left arm and shoulder pain, left lower neck to anterior mediastinal edema. Consistent with cellulitis. Has had some response to antibiotics. 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 - Surgical History Surgical History: Surgical History (Last Updated 01/04/18 @ 11:20 by Mera Pritchard MD) History of hip replacement, total History of lumpectomy of left breast History of lymph node dissection of left axilla History of total abdominal hysterectomy and bilateral salpingo-oophorectomy Hx of total knee replacement - Family History Family History: Family History (Last Updated 01/03/18 @ 05:54 by Jonny Johnson MD, PhD) Mother Lung cancer Father Coronary artery disease - Tobacco History Second Hand Smoke Exposure: No Smoking Status: Former smoker Tobacco Type: Cigarettes Number of Pack Years (if former smoker): 5 Smoking End Date: 1986 - Alcohol History How Often Do You Have a Drink Containing Alcohol: Never - Substance Use History Substance History: No History of Abuse - Travel History Recent Travel in the [place] Within the Last 8 Weeks: No Recent Travel Out of the Country Within the Last 8 Weeks: No - Immunization History Tetanus Immunization: Unsure Hx Influenza Vaccine This Season: No Medications and Allergies Active Medications: Active Medications Alprazolam (Xanax) 0.25 mg PO BID [facility] Last Admin: 01/04/18 10:27 Dose: Not Given Anastrozole (Arimidex) 1 mg PO DAILY [facility] Last Admin: 01/04/18 10:26 Dose: Not Given Digoxin (Lanoxin) 125 mcg PO DAILY [facility] Last Admin: 01/04/18 10:26 Dose: Not Given Duloxetine HCl (Cymbalta) 30 mg PO DAILY [facility] Last Admin: 01/04/18 10:26 Dose: Not Given Furosemide (Lasix) 40 mg PO DAILY [facility] Last Admin: 01/04/18 10:26 Dose: Not Given Gabapentin (Neurontin) 600 mg PO TID [facility] Last Admin: 01/04/18 13:59 Dose: 600 mg Hydromorphone HCl (Dilaudid Pf Inj) 1 mg IV.PUSH Q4H PRN PRN Reason: PAIN LEVEL 3-10 Last Admin: 01/04/18 14:00 Dose: 1 mg Pharmacy Profile Note (Vancomycin Consult Pharmacy) 0 mls @ 0 mls/hr OTHER UNSCH [facility] Potassium Chloride/Sodium Chloride (Ns + Kcl 20 Meq Inj) 1,000 mls @ 84 mls/hr IV.CONT .[id number] [facility] Last Admin: 01/03/18 23:27 Dose: 84 mls/hr Vancomycin HCl 1,750 mg/ (Sodium Chloride) 517.5 mls @ 250 mls/hr IV.SIG Q18H [facility] Last Infusion: 01/04/18 14:47 Dose: Infused Piperacillin/Tazobactam/Dextrose (Zosyn 3.375 Gm Premix) 50 mls @ 100 mls/hr IV.SIG Q6H [facility] Last Admin: 01/04/18 14:00 Dose: 100 mls/hr Clindamycin/Sodium Chloride (Cleocin 900 Mg/Ns Premix) 900 mg in 50 mls @ 100 mls/hr IV.SIG Q8H [facility] Stop: 01/06/18 04:29 Last Infusion: 01/04/18 16:24 Dose: Infused Levothyroxine Sodium (Synthroid) 112 mcg PO DAILY@0600 [facility] Last Admin: 01/04/18 06:39 Dose: 112 mcg Levothyroxine Sodium (Synthroid) 25 mcg PO DAILY@0600 [facility] Last Admin: 01/04/18 06:39 Dose: 25 mcg Metoprolol Tartrate (Lopressor) 50 mg PO BID [facility] Last Admin: 01/04/18 10:26 Dose: Not Given Miscellaneous Information ([facility] Ordered Lab Info) 0 each OTHER ONCE ONE Stop: 01/05/18 03:46 Ondansetron HCl (Zofran Inj) 4 mg IV.PUSH Q6H PRN PRN Reason: nausea, vomiting Pantoprazole Sodium (Protonix) 20 mg PO DAILY [facility] Last Admin: 01/04/18 10:27 Dose: Not Given Sodium Chloride (Ns Flush) 2 ml IV.FLUSH BID [facility] Last Admin: 01/04/18 11:13 Dose: 2 ml Sodium Chloride (Ns Flush) 2 ml IV.FLUSH PRN PRN PRN Reason: FLUSH AFTER USING IV ACCESS Allergies Allergy/AdvReac Type Severity Reaction Status Date / Time amlodipine Allergy Mild UNKNOWN Verified 01/02/18 17:30 lisinopril Allergy Mild UNKNOWN Verified 01/02/18 17:30 nifedipine Allergy Mild UNKNOWN Verified 01/02/18 17:30 NSAIDS (Non-Steroidal Allergy Mild Hives Verified 01/02/18 17:30 Anti-Inflamma morphine AdvReac Mild Nausea/Vomi Verified 01/02/18 17:28 ting STEROIDS Allergy Severe Anaphylaxis Uncoded 01/02/18 17:28 Home Medications Medication Instructions Recorded Confirmed Type alprazolam 0.25 mg PO TID PRN 01/02/18 01/03/18 History anastrozole 1 mg PO DAILY 01/02/18 01/02/18 History apixaban [Eliquis] 5 mg PO BID 01/02/18 01/02/18 History furosemide [Lasix] 40 mg PO DAILY 01/02/18 01/02/18 History gabapentin 300 mg PO DAILY 01/02/18 01/02/18 History hydrocodone-acetaminophen 1 tab PO Q4H PRN 01/02/18 01/02/18 History levothyroxine 137 mcg PO DAILY 01/02/18 01/02/18 History metoprolol tartrate 100 mg PO BID 01/02/18 01/02/18 History omeprazole 20 mg PO DAILY 01/02/18 01/02/18 History potassium chloride [K-Tab] 10 meq PO BID 01/02/18 01/02/18 History simvastatin 10 mg PO QPM 01/02/18 01/02/18 History Physical Exam Vital signs: Vital Signs 01/03/18 19:13 01/03/18 19:57 01/03/18 20:20 Temperature 98.3 F 98.4 F Pulse Rate 74 76 Respiratory Rate 19 16 20 Blood Pressure 125/66 122/58 L Pulse Oximetry 90 L 92 L 01/04/18 00:00 01/04/18 04:00 01/04/18 08:00 Temperature 98.8 F 98.1 F 97.8 F Pulse Rate 87 67 62 Respiratory Rate 20 20 20 Blood Pressure 121/55 L 122/73 135/71 Pulse Oximetry 95 97 93 L Intake & Output 01/03/18 01/04/18 01/04/18 18:59 06:59 18:59 Intake Total 3850 / 3850 1400 / 1400 867.5 / 867.5 Balance 3850 / 3850 1400 / 1400 867.5 / 867.5 Weight 110.677 kg Intake: IV 3850 / 3850 1100 / 1100 617.5 / 617.5 NS + KCl 20 mEq Inj 1,000 ML @ 1000 / 1000 84 mls/hr IV.CONT .[id number] [facility] Rx#:[id number] NS Inj 1,000 ML @ 75 mls/hr IV. 2800 / 2800 CONT .[id number] [facility] Rx#:[id number] Cleocin 900 mg/NS Premix 900 mg 50 / 50 In 50 ml @ 100 mls/hr IV.SIG Q8H [facility] Rx#:[id number] Zosyn 3.375 GM Premix 50 ML @ 50 / 50 100 / 100 50 / 50 100 mls/hr IV.SIG Q6H [facility] Rx#: [id number] Vancomycin Inj 1,750 MG In NS 1000 / 1000 517.5 / 517.5 Inj 500 ML @ 250 mls/hr IV.SIG Q18H [facility] Rx#:[id number] Oral 300 / 300 250 / 250 Other: # Voids 2 1 Date of Last Bowel Movement 01/04/18 # Bowel Movements 1 - Constitutional mild distress, obese, cooperative - Routine HEENT Exam Head: Present: normocephalic, atraumatic. Absent: facial swelling Eye: Present: EOMI, PERRL. Absent: periorbital swelling, nystagmus ENT: Present: mucous membranes moist, oropharynx clear, nares patent. Absent: sinus tenderness - Routine Neck Exam Present: lymphadenopathy, tenderness, swelling Assessment and Plan - Plan Left neck and arm swelling. Clinically consistent with cellulitis and early abscess. Responding to IV antibiotics. Agree there is not surgical role at this point. Recommend considering a short course of IV steroid therapy, like we do on tonsil abscesses or pharyngeal edema. Agree with interventional radiology if she cheng not respond and develops a need for percutaneous drainage.
[2018-01-05] MEDS: Piperacil/Tazo 3.375 GM Premix 50 ML IV.SIG SCH ×4 (00:54→18:40)
[2018-01-05] MEDS ORDERED: Pharmacy Ordered Lab Info OTHER ONE (03:45)
[2018-01-05] MEDS: Clindamycin 900 mg/NS Premix 900 MG/50 ML PIGGYBACK IV.SIG SCH ×3 (04:02→20:13)
[2018-01-05] MEDS: Vancomycin Inj 1,750 MG in Sodium Chlor 0.9% Inj 500 ML IV.SIG SCH (04:02)
[2018-01-05] MEDS: HYDROmorphone PF Inj 2 MG/ML Vial IV.PUSH PRN ×2 (04:12→16:37)
[2018-01-05 04:49] LABS: Baso % (Auto) 0.3 % (0.0-2.0); Eos % (Auto) 0.1 % (0.0-4.0); Hematocrit 33.5 % (35.0-46.0); Hemoglobin 11.1 gm/dL (11.6-15.3); Lymph # (Auto) 0.7 th/mm3 (1.0-4.8); Lymph % (Auto) 9.4 % (9.0-44.0); Mean Corpuscular HGB Conc 33.1 % (32.0-36.0); Mean Corpuscular Hemoglobin 28.3 pg (27.0-34.0); Mean Corpuscular Volume 85.7 fL (80.0-100.0); Mean Platelet Volume 7.9 fL (7.0-11.0); Mono # (Auto) 0.2 th/mm3 (0.0-0.9); Mono % (Auto) 2.9 % (0.0-8.0); Neut # (Auto) 6.6 th/mm3 (1.8-7.7); Neut % (Auto) 87.3 % (16.0-70.0); Platelet Count 294 th/mm3 (150-450); Red Blood Count 3.91 mil/mm3 (4.00-5.30); White Blood Count 7.5 th/mm3 (4.0-11.0)
[2018-01-05] MEDS: Levothyroxine 112 MCG Tablet PO SCH (05:36)
[2018-01-05] MEDS: Furosemide 40 MG Tablet PO SCH (08:14)
[2018-01-05] MEDS: ALPRAZolam 0.25 MG Tablet PO SCH ×2 (08:14→20:14)
[2018-01-05] MEDS: Gabapentin 300 MG Capsule PO SCH ×3 (08:14→17:40)
[2018-01-05] MEDS: Anastrozole 1 MG Tablet PO SCH (08:15)
[2018-01-05] MEDS: Pantoprazole Sodium 20 MG DR Tablet PO SCH (08:15)
--- NOTE | 2018-01-05 09:48 | P.PNCV ---
- Note Subjective/Hospital Course: Improving with less c/o pain. Much more lucid. Objective: Vital Signs - 24 hr 01/04/18 12:00 01/04/18 16:00 01/04/18 20:00 Temperature 98.6 F 98.5 F 97.0 F L Pulse Rate 69 71 75 Respiratory Rate 16 21 19 Blood Pressure 186/84 H 142/65 H 143/69 H Pulse Oximetry 99 98 96 01/04/18 22:00 01/05/18 00:00 01/05/18 00:08 Temperature 98.4 F Pulse Rate 60 Respiratory Rate 18 17 20 Blood Pressure 139/61 Pulse Oximetry 94 L 01/05/18 04:00 01/05/18 06:00 Temperature 98.4 F Pulse Rate 63 Respiratory Rate 18 18 Blood Pressure 170/74 H Pulse Oximetry 96 Labs: Laboratory Results - last 12 hr 01/05/18 01/05/18 03:05 03:37 WBC 7.5 RBC 3.91 L Hgb 11.1 L Hct 33.5 L MCV 85.7 MCH 28.3 MCHC 33.1 RDW 15.0 Plt Count 294 MPV 7.9 Neut % (Auto) 87.3 H Lymph % (Auto) 9.4 [place] % (Auto) 2.9 Eos % (Auto) 0.1 Baso % (Auto) 0.3 Neut # (Auto) 6.6 Lymph # (Auto) 0.7 L [place] # (Auto) 0.2 Eos # (Auto) 0.0 Baso # (Auto) 0.0 WBC Differential . Differential Comment Auto diff final Vancomycin Trough 10.7 H Result Diagrams: 01/05/18 03:37 01/04/18 05:12 Cardiovascular: RRR Pulmonary: CTA GI/: NABS Edema: Less tender today. - Plan (2) Cellulitis Improving. Continue antibiotics. Agree with ENT recommendations as well. (2) Cellulitis Qualifiers: Site of cellulitis: extremity Site of cellulitis of extremity: upper extremity Laterality: left Qualified Code(s): L03.114 - Cellulitis of left upper limb
--- NOTE | 2018-01-05 10:28 | P.PNID ---
Subjective Remarks: Patient is a 72-year-old female presented to the hospital complaining of pain, swelling, and redness in her left upper extremity as well as in her neck and left chest. Her problems started December 30 when she started experiencing swelling and pain in her left upper extremity. It progressed to spreading of the pain and swelling to her left neck and left shoulder as well as left anterior chest. She was seen by her primary care physician, and she was given a shot of antibiotics and was given oral antibiotics. She was also seen by her orthopedic doctor at that time because she wanted her left shoulder evaluated. According to the patient both physician told her to go to the hospital for further evaluation and treatment. She denies any sore throat. She has not had any coughing. She apparently had some episodes of nausea and dry heaving when she started having the problem. She denies having any kind of injury or insect bite to her left upper extremity. Patient stated that she has known arthritis on her left shoulder, and has [id number] problem. Patient has had previous lumpectomy and lymph node dissection for left breast cancer back in 2013. She has had problem with cellulitis in the left upper extremity. She can remember the last time she had an infection. She has chronic lymphedema in that arm. Since admission she has not been febrile. Her white count is normal. She has had imaging studies done and there was no evidence of DVT in the left upper extremity. She has evidence of edema on her neck with some extension into the upper mediastinum. There also describing 2 small fluid collections. Today patient had noted pain when she swallows, but she points mostly to her left chest area when she swallows. She has been transferred to the ICU for further closer monitoring. Infectious disease consultation has been requested to assist with evaluation and treatment. 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 History of hip replacement, total History of lumpectomy of left breast History of lymph node dissection of left axilla History of total abdominal hysterectomy and bilateral salpingo-oophorectomy Hx of total knee replacement Allergies/Adverse Reactions: Allergies amlodipine Allergy (Mild, Verified 01/02/18 17:30) UNKNOWN lisinopril Allergy (Mild, Verified 01/02/18 17:30) UNKNOWN nifedipine Allergy (Mild, Verified 01/02/18 17:30) UNKNOWN NSAIDS (Non-Steroidal Anti-Inflamma Allergy (Mild, Verified 01/02/18 17:30) Hives morphine Adverse Reaction (Mild, Verified 01/02/18 17:28) Nausea/Vomiting STEROIDS Allergy (Severe, Uncoded 01/02/18 17:28) Anaphylaxis Objective Vital Signs 01/04/18 12:00 01/04/18 16:00 01/04/18 20:00 Temperature 98.6 F 98.5 F 97.0 F L Pulse Rate 69 71 75 Respiratory Rate 16 21 19 Blood Pressure 186/84 H 142/65 H 143/69 H Pulse Oximetry 99 98 96 01/04/18 22:00 01/05/18 00:00 01/05/18 00:08 Temperature 98.4 F Pulse Rate 60 Respiratory Rate 18 17 20 Blood Pressure 139/61 Pulse Oximetry 94 L 01/05/18 04:00 01/05/18 06:00 Temperature 98.4 F Pulse Rate 63 Respiratory Rate 18 18 Blood Pressure 170/74 H Pulse Oximetry 96 Intake & Output 01/04/18 01/05/18 01/05/18 18:59 06:59 18:59 Intake Total 2167.5 / 2167.5 1267 / 1267 Balance 2167.5 / 2167.5 1267 / 1267 Weight 115.7 kg Intake: IV 1667.5 / 1667.5 1017 / 1017 NS + KCl 20 mEq Inj 1,000 ML @ 1000 / 1000 300 / 300 84 mls/hr IV.CONT .[id number] [facility] Rx#:[id number] Cleocin 900 mg/NS Premix 900 mg 50 / 50 100 / 100 In 50 ml @ 100 mls/hr IV.SIG Q8H [facility] Rx#:[id number] Zosyn 3.375 GM Premix 50 ML @ 100 / 100 100 / 100 100 mls/hr IV.SIG Q6H [facility] Rx#: [id number] Vancomycin Inj 1,750 MG In NS 517.5 / 517.5 517 / 517 Inj 500 ML @ 250 mls/hr IV.SIG Q18H [facility] Rx#:[id number] Oral 500 / 500 250 / 250 Other: # Voids 1 2 Date of Last Bowel Movement 01/04/18 01/05/18 # Bowel Movements 1 2 01/02/18 18:15 Blood - Peripheral Aerobic Blood Culture - Preliminary No growth in 2 days 01/02/18 18:15 Blood - Peripheral Anaerobic Blood Culture - Preliminary No growth in 2 days 01/02/18 18:30 Blood - Peripheral Aerobic Blood Culture - Preliminary No growth in 2 days 01/02/18 18:30 Blood - Peripheral Anaerobic Blood Culture - Preliminary No growth in 2 days Lab - Hematology Results 01/03/18 01/04/18 01/05/18 10:51 05:12 03:37 WBC 9.6 8.2 7.5 RBC 3.68 L 3.78 L 3.91 L Hgb 10.5 L 10.8 L 11.1 L Hct 31.5 L 32.4 L 33.5 L MCV 85.5 85.7 85.7 MCH 28.4 28.5 28.3 MCHC 33.2 33.3 33.1 RDW 15.3 15.0 15.0 Plt Count 215 259 294 MPV 8.0 8.2 7.9 Neut % (Auto) 77.0 H 67.6 87.3 H Lymph % (Auto) 9.0 14.3 9.4 [place] % (Auto) 12.3 H 15.8 H 2.9 Eos % (Auto) 1.3 1.6 0.1 Baso % (Auto) 0.4 0.7 0.3 Neut # (Auto) 7.4 5.5 6.6 Lymph # (Auto) 0.9 L 1.2 0.7 L [place] # (Auto) 1.2 H 1.3 H 0.2 Eos # (Auto) 0.1 0.1 0.0 Baso # (Auto) 0.0 0.1 0.0 WBC Differential . . . Differential Comment Auto diff final Auto diff final Auto diff final Lab - Chemistry Results 01/03/18 01/03/18 01/04/18 10:51 10:51 05:12 Sodium 135 L 137 Potassium 2.9 L* 4.0 D Chloride 96 L 98 Carbon Dioxide 30.1 31.2 Anion Gap 9 8 BUN 21 H 18 Creatinine 1.08 H 1.05 H Estimated GFR 50 L 52 L Random Glucose 163 H 97 Calcium 8.3 L 8.8 Magnesium 1.7 TSH 1.830 Imaging: ITS Impressions Chest X-Ray 01/02/18 18:17 CONCLUSION: Mild cardiomegaly with probable basilar atelectasis. Surgical clips left axilla. No significant effusion. Venous Doppler Study 01/02/18 18:20 CONCLUSION: 1. The study is negative for upper extremity deep venous thrombosis. 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 Humerus CT 01/03/18 00:00 Humerus is unremarkable. CONCLUSION: 1. I don't see a defined fluid collection to suggest a deep space abscess. 2. Ultrasound could be used to follow. Neck MRI 01/03/18 00:00 CONCLUSION: 1. Extensive cellulitis of the lower anterior neck extending into the anterior chest wall and upper mediastinum. Probable 14 mm abscess in the left anterior neck near the level of the glottis and additional developing abscess in the upper anterior mediastinum measuring 2 cm in diameter with a sinus tract extending to the more superior abscess collection. Questionable early osteomyelitis of the manubrium. Soft Tissue Neck CT 01/03/18 00:00 CONCLUSION: 1. Enlargement of the left strap muscles suggestive of injury and possible hematoma. Diffuse subcutaneous edema is also noted surrounding the strap muscles particularly on the left. Physical Exam: GENERAL: awake and alert, not in respiratory distress. SKIN: Warm and dry. No generalized rash, no ecchymoses and no evidence of embolic lesions. HEAD: Atraumatic. Normocephalic. No temporal wasting, or tenderness. EYES: [place] conjunctiva. No petechia or hemorrhage. Pupils equal, round and reactive to light. Extraocular movements full and intact. No scleral icterus. No injection or drainage. EARS, NOSE AND THROAT: Nose without bleeding or purulent nasal discharge. No sinus tenderness. Mucous membranes pink and moist. No oral lesions noted. No exudate. No oral thrush. NECK: Has tenderness in neck. Area of swelling and induration of anterior neck that extends to the left side of her neck looks better. Has erythema to supraclavicular area, with tenderness, no fluctuance, looks better. She is also very tender anterior chest that goes down to the sternal region and down to her L anterior chest. BREAST: Looks ok with no induration on breast CARDIOVASCULAR: Regular rate and rhythm. No murmurs, rubs or gallops heard RESPIRATORY: Clear to auscultation. Breath sounds equal bilaterally. No rales , wheezing or rhonchi ABDOMEN: Soft, non-tender, nondistended. Bowel sounds present and normoactive. No guarding. No rebound. No organomegaly. EXTREMITIES: No clubbing, cyanosis. Her LUE is larger compared to her RUE, and she has patches of erythema which is improving. She complains of pain under her L armpit when her LUE gets moved passively, still present and unchanged. No calf tenderness. Well perfused and warm. NEUROLOGICAL: Awake and alert. Cranial nerves grossly intact. Motor grossly within normal limits. PSYCHIATRIC: Normal affect, calm and cooperative. LINE: No evidence of infection Assessment and Plan - Plan Impression LUE cellulitis Cellulitis L neck, anterior chest, etiology? - early abscess - better Hx lymphedema LUE from prior axilary LN dissection Hx GBS sepsis and R psoas abscess 2015 Recommendation Continue Vanco Continue Zosyn Follow C/S Monitor progress I will follow along with you D/W RN
--- NOTE | 2018-01-05 10:36 | P.PNIM ---
Subjective Interval history: pt less difficulty swallowing today. more comfortable. Physical Exam Vital signs: Vital Signs 01/04/18 12:00 01/04/18 16:00 01/04/18 20:00 Temperature 98.6 F 98.5 F 97.0 F L Pulse Rate 69 71 75 Respiratory Rate 16 21 19 Blood Pressure 186/84 H 142/65 H 143/69 H Pulse Oximetry 99 98 96 01/04/18 22:00 01/05/18 00:00 01/05/18 00:08 Temperature 98.4 F Pulse Rate 60 Respiratory Rate 18 17 20 Blood Pressure 139/61 Pulse Oximetry 94 L 01/05/18 04:00 01/05/18 06:00 Temperature 98.4 F Pulse Rate 63 Respiratory Rate 18 18 Blood Pressure 170/74 H Pulse Oximetry 96 Intake & Output 01/04/18 01/05/18 01/05/18 18:59 06:59 18:59 Intake Total 2167.5 / 2167.5 1267 / 1267 Balance 2167.5 / 2167.5 1267 / 1267 Weight 115.7 kg Intake: IV 1667.5 / 1667.5 1017 / 1017 NS + KCl 20 mEq Inj 1,000 ML @ 1000 / 1000 300 / 300 84 mls/hr IV.CONT .[id number] [facility] Rx#:[id number] Cleocin 900 mg/NS Premix 900 mg 50 / 50 100 / 100 In 50 ml @ 100 mls/hr IV.SIG Q8H [facility] Rx#:[id number] Zosyn 3.375 GM Premix 50 ML @ 100 / 100 100 / 100 100 mls/hr IV.SIG Q6H [facility] Rx#: [id number] Vancomycin Inj 1,750 MG In NS 517.5 / 517.5 517 / 517 Inj 500 ML @ 250 mls/hr IV.SIG Q18H [facility] Rx#:[id number] Oral 500 / 500 250 / 250 Other: # Voids 1 2 Date of Last Bowel Movement 01/04/18 01/05/18 # Bowel Movements 1 2 ant left neck swollen /tender tender over ant chest into left shoulder with improved erythema and tenderness left arm Results - Labs CBC & Chem 7: 01/05/18 03:37 01/04/18 05:12 Laboratory Results - last 24 hr 01/05/18 01/05/18 03:05 03:37 WBC 7.5 RBC 3.91 L Hgb 11.1 L Hct 33.5 L MCV 85.7 MCH 28.3 MCHC 33.1 RDW 15.0 Plt Count 294 MPV 7.9 Neut % (Auto) 87.3 H Lymph % (Auto) 9.4 [place] % (Auto) 2.9 Eos % (Auto) 0.1 Baso % (Auto) 0.3 Neut # (Auto) 6.6 Lymph # (Auto) 0.7 L [place] # (Auto) 0.2 Eos # (Auto) 0.0 Baso # (Auto) 0.0 WBC Differential . Differential Comment Auto diff final Vancomycin Trough 10.7 H Microbiology 01/02/18 18:15 Blood - Peripheral Aerobic Blood Culture - Preliminary No growth in 2 days 01/02/18 18:15 Blood - Peripheral Anaerobic Blood Culture - Preliminary No growth in 2 days 01/02/18 18:30 Blood - Peripheral Aerobic Blood Culture - Preliminary No growth in 2 days 01/02/18 18:30 Blood - Peripheral Anaerobic Blood Culture - Preliminary No growth in 2 days Assessment and Plan - Assessment (1) Cellulitis Code(s): L03.90 - Cellulitis, unspecified Status: Acute Plan: Cellulitis, LUE/shoulder/neck Lymphedema LUE Ant neck/mediastinum abscess. airway compromise - Pt is a 72 y/o female with chronic left upper extremity lymphedema s/p left breast lumpectomy and axillary node surgery - Pt presented to the ED at [facility] [place] on 01/02/18 with left arm pain and redness. The patient states that the pain started three days prior to arrival in the ED. The patient states that the pain is localized to the left shoulder down to the left hand but also involves some spasm of her left neck. - She has visited her primary care physician twice regarding this and has been given Rocephin injection 2 as an outpatient and was started on Bactrim 1 day prior to arrival per record review. The arm swelling, pain and redness have increased despite these interventions. - LUE US was negative for DVT - Blood cultures were drawn in the ED and are ngtd MRI neck 01/03 1. Extensive cellulitis of the lower anterior neck extending into the anterior chest wall and upper mediastinum. Probable 14 mm abscess in the left anterior neck near the level of the glottis and additional developing abscess in the upper anterior mediastinum measuring 2 cm in diameter with a sinus tract extending to the more superior abscess collection. Questionable early osteomyelitis of the manubrium. Pt was having more difficulty speaking and swallowing 01/04 spoke with Textile Machine Maintenance Mechanic and CTS. Moved to ICU for closer monitoring and surgical intervention as required cont broad abx with vanco and zosyn. and clinda per ID ENT following. unable to give iv decadron pt reports severe allergy. liquid diet. swallow eval. d/c ivf eliquis on hold and sq heparin given. resume eliquis if no intervention required on neck probably get a repeat image of her neck in few days to see if fluid collections are more clearly abscess and my A. fib - Cont. home meds HTN - Home meds continued - Monitor Hypothyroidism - Continue home medication. (2) Lymphedema Code(s): I89.0 - Lymphedema, not elsewhere classified Status: Chronic (3) Hypothyroidism Code(s): E03.9 - Hypothyroidism, unspecified Status: Chronic (4) Hypertension Code(s): I10 - Essential (primary) hypertension Status: Chronic (5) GERD (gastroesophageal reflux disease) Code(s): K21.9 - Gastro-esophageal reflux disease without esophagitis Status: Acute (6) Atrial fibrillation Code(s): I48.91 - Unspecified atrial fibrillation Status: Chronic (1) Cellulitis Qualifiers: Site of cellulitis: extremity Site of cellulitis of extremity: upper extremity Laterality: left Qualified Code(s): L03.114 - Cellulitis of left upper limb
[2018-01-05] MEDS: Digoxin 125 MCG Tablet PO SCH (14:20)
[2018-01-05] MEDS: Metoprolol Tartrate 50 MG Tablet PO SCH ×2 (14:20→20:14)
[2018-01-05] MEDS: Heparin - SQ 10,000 UNITS/ML Vial SQ SCH (20:14)
[2018-01-06] MEDS: Vancomycin Inj 1,750 MG in Sodium Chlor 0.9% Inj 500 ML IV.SIG SCH ×2 (00:38→16:44)
[2018-01-06] MEDS: Piperacil/Tazo 3.375 GM Premix 50 ML IV.SIG SCH ×4 (02:00→20:22)
[2018-01-06] MEDS: HYDROmorphone PF Inj 2 MG/ML Vial IV.PUSH PRN ×3 (02:30→20:24)
[2018-01-06] MEDS: Clindamycin 900 mg/NS Premix 900 MG/50 ML PIGGYBACK IV.SIG SCH (06:44)
[2018-01-06] MEDS: Levothyroxine 112 MCG Tablet PO SCH (06:44)
[2018-01-06 07:10] LABS: Baso % (Auto) 0.5 % (0.0-2.0); Eos # (Auto) 0.1 th/mm3 (0.0-0.4); Eos % (Auto) 0.8 % (0.0-4.0); Hematocrit 30.4 % (35.0-46.0); Hemoglobin 10.2 gm/dL (11.6-15.3); Lymph # (Auto) 1.9 th/mm3 (1.0-4.8); Lymph % (Auto) 19.6 % (9.0-44.0); Mean Corpuscular HGB Conc 33.5 % (32.0-36.0); Mean Corpuscular Hemoglobin 28.9 pg (27.0-34.0); Mean Corpuscular Volume 86.2 fL (80.0-100.0); Mean Platelet Volume 8.1 fL (7.0-11.0); Mono # (Auto) 1.2 th/mm3 (0.0-0.9); Mono % (Auto) 12.5 % (0.0-8.0); Neut # (Auto) 6.5 th/mm3 (1.8-7.7); Neut % (Auto) 66.6 % (16.0-70.0); Platelet Count 324 th/mm3 (150-450); Red Blood Count 3.53 mil/mm3 (4.00-5.30); Red Cell Distribution Width 15.2 % (11.6-17.2); White Blood Count 9.8 th/mm3 (4.0-11.0)
[2018-01-06 07:40] LABS: Calcium 8.7 mg/dL (8.5-10.1); Carbon Dioxide 29.1 meq/L (21.0-32.0); Potassium 3.4 meq/L (3.5-5.1)
[2018-01-06] MEDS: Furosemide 40 MG Tablet PO SCH (11:59)
[2018-01-06] MEDS: Digoxin 125 MCG Tablet PO SCH (11:59)
[2018-01-06] MEDS: Heparin - SQ 10,000 UNITS/ML Vial SQ SCH ×2 (11:59→20:23)
[2018-01-06] MEDS: Metoprolol Tartrate 50 MG Tablet PO SCH ×2 (11:59→20:23)
[2018-01-06] MEDS: Anastrozole 1 MG Tablet PO SCH (11:59)
[2018-01-06] MEDS: Gabapentin 300 MG Capsule PO SCH ×3 (11:59→19:46)
[2018-01-06] MEDS: Pantoprazole Sodium 20 MG DR Tablet PO SCH (12:00)
[2018-01-06] MEDS: ALPRAZolam 0.25 MG Tablet PO SCH ×2 (12:00→20:23)
--- NOTE | 2018-01-06 12:11 | P.PNIM ---
Subjective Interval history: Pt without any new complaints today Still painful swallowing She is tolerating liquid diet Pain in the LUE is controlled currently Physical Exam Vital signs: Vital Signs 01/05/18 16:00 01/05/18 17:07 01/05/18 20:00 Temperature 98 F 98.4 F Pulse Rate 79 68 Respiratory Rate 17 16 20 Blood Pressure 146/71 H 122/59 L Pulse Oximetry 100 98 01/06/18 00:00 01/06/18 04:00 01/06/18 08:00 Temperature 98.7 F 98.6 F 98 F Pulse Rate 59 L 63 68 Respiratory Rate 18 17 18 Blood Pressure 121/59 L 133/62 177/77 H Pulse Oximetry 95 93 L 98 Intake & Output 01/05/18 01/06/18 01/06/18 18:59 06:59 18:59 Intake Total 990 / 990 1067 / 1067 Balance 990 / 990 1067 / 1067 Intake: IV 150 / 150 667 / 667 Cleocin 900 mg/NS Premix 900 mg 50 / 50 50 / 50 In 50 ml @ 100 mls/hr IV.SIG Q8H [facility] Rx#:[id number] Zosyn 3.375 GM Premix 50 ML @ 100 / 100 100 / 100 100 mls/hr IV.SIG Q6H [facility] Rx#: [id number] Vancomycin Inj 1,750 MG In NS 517 / 517 Inj 500 ML @ 250 mls/hr IV.SIG Q18H [facility] Rx#:[id number] Oral 840 / 840 400 / 400 Other: # Voids 2 1 Date of Last Bowel Movement 01/05/18 01/06/18 01/06/18 # Bowel Movements 3 1 Narrative: General: NAD, AAOx3 Skin: Chronic lymphedema left upper extremity. Skin is exquisitely tender to palpation even with light touch along left shoulder left lateral arm and left neck area. Erythema has improved Cardiac: Regular rate and rhythm. No significant murmurs appreciated. Chest: CTA bilaterally. Abd: +BS, soft, non-tender, nondistended. Ext: Lymphedema left upper extremity. Results - Labs CBC & Chem 7: 01/07/18 05:12 01/10/18 02:32 Laboratory Results - last 24 hr 01/06/18 01/06/18 05:10 05:10 WBC 9.8 RBC 3.53 L Hgb 10.2 L Hct 30.4 L MCV 86.2 MCH 28.9 MCHC 33.5 RDW 15.2 Plt Count 324 MPV 8.1 Neut % (Auto) 66.6 Lymph % (Auto) 19.6 [place] % (Auto) 12.5 H Eos % (Auto) 0.8 Baso % (Auto) 0.5 Neut # (Auto) 6.5 Lymph # (Auto) 1.9 [place] # (Auto) 1.2 H Eos # (Auto) 0.1 Baso # (Auto) 0.0 WBC Differential . Differential Comment Auto diff final Sodium 140 Potassium 3.4 L Chloride 102 Carbon Dioxide 29.1 Anion Gap 9 BUN 13 Creatinine 0.92 Estimated GFR 60 L Random Glucose 99 Calcium 8.7 Microbiology 01/02/18 18:15 Blood - Peripheral Aerobic Blood Culture - Preliminary No growth in 4 days 01/02/18 18:15 Blood - Peripheral Anaerobic Blood Culture - Preliminary No growth in 4 days 01/02/18 18:30 Blood - Peripheral Aerobic Blood Culture - Preliminary No growth in 4 days 01/02/18 18:30 Blood - Peripheral Anaerobic Blood Culture - Preliminary No growth in 4 days - Imaging Chest X-Ray 01/02/18 18:17 CONCLUSION: Mild cardiomegaly with probable basilar atelectasis. Surgical clips left axilla. No significant effusion. Venous Doppler Study 01/02/18 18:20 CONCLUSION: 1. The study is negative for upper extremity deep venous thrombosis. 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 Humerus CT 01/03/18 00:00 Humerus is unremarkable. CONCLUSION: 1. I don't see a defined fluid collection to suggest a deep space abscess. 2. Ultrasound could be used to follow. Neck MRI 01/03/18 00:00 CONCLUSION: 1. Extensive cellulitis of the lower anterior neck extending into the anterior chest wall and upper mediastinum. Probable 14 mm abscess in the left anterior neck near the level of the glottis and additional developing abscess in the upper anterior mediastinum measuring 2 cm in diameter with a sinus tract extending to the more superior abscess collection. Questionable early osteomyelitis of the manubrium. Soft Tissue Neck CT 01/03/18 00:00 CONCLUSION: 1. Enlargement of the left strap muscles suggestive of injury and possible hematoma. Diffuse subcutaneous edema is also noted surrounding the strap muscles particularly on the left. Assessment and Plan - Assessment (1) Cellulitis Code(s): L03.90 - Cellulitis, unspecified Status: Acute Plan: Cellulitis, LUE/shoulder/neck Lymphedema LUE Ant neck/mediastinum abscess. airway compromise - Pt is a 72 y/o female with chronic left upper extremity lymphedema s/p left breast lumpectomy and axillary node surgery - Pt presented to the ED at [facility] [place] on 01/02/18 with left arm pain and redness. The patient states that the pain started three days prior to arrival in the ED. The patient states that the pain is localized to the left shoulder down to the left hand but also involves some spasm of her left neck. - She has visited her primary care physician twice regarding this and has been given Rocephin injection 2 as an outpatient and was started on Bactrim 1 day prior to arrival per record review. The arm swelling, pain and redness have increased despite these interventions. - LUE US was negative for DVT - Blood cultures (01/02) with NGTD - Venous Doppler Study (01/02/18): 1. The study is negative for upper extremity deep venous thrombosis. - Humerus CT (01/03/18): - Humerus is unremarkable. - I don't see a defined fluid collection to suggest a deep space abscess. - Neck MRI (01/03/18): 1. Extensive cellulitis of the lower anterior neck extending into the anterior chest wall and upper mediastinum. Probable 14 mm abscess in the left anterior neck near the level of the glottis and additional developing abscess in the upper anterior mediastinum measuring 2 cm in diameter with a sinus tract extending to the more superior abscess collection. Questionable early osteomyelitis of the manubrium. - Soft Tissue Neck CT (01/03/18) 1. Enlargement of the left strap muscles suggestive of injury and possible hematoma. Diffuse subcutaneous edema is also noted surrounding the strap muscles particularly on the left. - Pt was having more difficulty speaking and swallowing 01/04 - Spoke with Shed Workers Supervisor and CTS and pt was moved to ICU for closer monitoring on 01/04 - ID was consulted. - Pt is to cont. on broad spectrum abx with Vanco and Zosyn and she completed 6 doses of clindamycin per ID - ENT following. We are unable to give iv Decadron as pt reports severe allergy. - She is on liquid diet. Appreciate swallow eval by ST and we will continue liquid diet per their recommendations. - Eliquis on hold and sq heparin given. - We will resume Eliquis if no intervention required on neck - Plan for repeat imaging of her neck in few days to see if fluid collections are more clearly abscess A. fib - Cont. home meds HTN - Home meds continued - Monitor Hypothyroidism - Continue home medication. (2) Lymphedema Code(s): I89.0 - Lymphedema, not elsewhere classified Status: Chronic (3) Hypothyroidism Code(s): E03.9 - Hypothyroidism, unspecified Status: Chronic (4) Hypertension Code(s): I10 - Essential (primary) hypertension Status: Chronic (5) GERD (gastroesophageal reflux disease) Code(s): K21.9 - Gastro-esophageal reflux disease without esophagitis Status: Acute (6) Atrial fibrillation Code(s): I48.91 - Unspecified atrial fibrillation Status: Chronic - Attending Attestation Patient examined. Assessment and plan formulated with Nelly Gallagher PA-C. I agree with the above. (1) Cellulitis Qualifiers: Site of cellulitis: extremity Site of cellulitis of extremity: upper extremity Laterality: left Qualified Code(s): L03.114 - Cellulitis of left upper limb
[2018-01-06] MEDS ORDERED: Potassium Chloride 10 MEQ ER Capsule PO ONE (14:00)
--- NOTE | 2018-01-06 14:34 | P.PNIM ---
Subjective Interval history: No new complaints. Pt continues to tolerate clear liquid diet. Physical Exam Vital signs: 01/06/18 00:00 01/06/18 04:00 01/06/18 08:00 Temperature 98.7 F 98.6 F 98 F Pulse Rate 59 L 63 68 Respiratory Rate 18 17 18 Blood Pressure 121/59 L 133/62 177/77 H Pulse Oximetry 95 93 L 98 Narrative: General: NAD, AAOx3 Skin: Erythematous patches left upper extremity with some mild induration. Chronic lymphedema left upper extremity. Skin is exquisitely tender to palpation even with light touch along left shoulder left lateral arm and left neck area. Cardiac: Regular rate and rhythm. No significant murmurs appreciated. Chest: CTA bilaterally. Abd: +BS, soft, non-tender, nondistended. Ext: Lymphedema left upper extremity. Results - Labs CBC & Chem 7: 01/07/18 05:12 01/12/18 03:57 Microbiology 01/02/18 18:15 Blood - Peripheral Aerobic Blood Culture - Preliminary No growth in 4 days 01/02/18 18:15 Blood - Peripheral Anaerobic Blood Culture - Preliminary No growth in 4 days 01/02/18 18:30 Blood - Peripheral Aerobic Blood Culture - Preliminary No growth in 4 days 01/02/18 18:30 Blood - Peripheral Anaerobic Blood Culture - Preliminary No growth in 4 days - Imaging Chest X-Ray 01/02/18 18:17 Mild cardiomegaly with probable basilar atelectasis. Surgical clips left axilla. No significant effusion. Venous Doppler Study 01/02/18 18:20 1. The study is negative for upper extremity deep venous thrombosis. Shoulder X-Ray 01/02/18 18:49 Moderate to severe osteoarthritis at the left shoulder. Humerus CT 01/03/18 00:00 Humerus is unremarkable. CONCLUSION: 1. I don't see a defined fluid collection to suggest a deep space abscess. 2. Ultrasound could be used to follow. Neck MRI 01/03/18 00:00 1. Extensive cellulitis of the lower anterior neck extending into the anterior chest wall and upper mediastinum. Probable 14 mm abscess in the left anterior neck near the level of the glottis and additional developing abscess in the upper anterior mediastinum measuring 2 cm in diameter with a sinus tract extending to the more superior abscess collection. Questionable early osteomyelitis of the manubrium. Soft Tissue Neck CT 01/03/18 00:00 1. Enlargement of the left strap muscles suggestive of injury and possible hematoma. Diffuse subcutaneous edema is also noted surrounding the strap muscles particularly on the left. Assessment and Plan - Assessment (1) Cellulitis Code(s): L03.90 - Cellulitis, unspecified Status: Acute Plan: Cellulitis, LUE/shoulder/neck Lymphedema LUE Ant neck/mediastinum abscess. airway compromise - comgmt with ID, ENT - Pt is a 72 y/o female with chronic left upper extremity lymphedema s/p left breast lumpectomy and axillary node surgery - Pt presented to the ED at [facility] [place] 01/02/18 with left arm pain and redness. The patient states that the pain started three days prior to arrival in the ED. The patient states that the pain is localized to the left shoulder down to the left hand but also involves some spasm of her left neck. - She has visited her primary care physician twice regarding this and has been given Rocephin injection 2 as an outpatient and was started on Bactrim 1 day prior to arrival per record review. The arm swelling, pain and redness have increased despite these interventions. - LUE US was negative for DVT - Blood cultures (01/02) with NGTD - Venous Doppler Study (01/02/18): 1. The study is negative for upper extremity deep venous thrombosis. - Humerus CT (01/03/18): - Humerus is unremarkable. - I don't see a defined fluid collection to suggest a deep space abscess. - Neck MRI (01/03/18): 1. Extensive cellulitis of the lower anterior neck extending into the anterior chest wall and upper mediastinum. Probable 14 mm abscess in the left anterior neck near the level of the glottis and additional developing abscess in the upper anterior mediastinum measuring 2 cm in diameter with a sinus tract extending to the more superior abscess collection. Questionable early osteomyelitis of the manubrium. - Soft Tissue Neck CT (01/03/18) 1. Enlargement of the left strap muscles suggestive of injury and possible hematoma. Diffuse subcutaneous edema is also noted surrounding the strap muscles particularly on the left. - Pt was having more difficulty speaking and swallowing 01/04 - Spoke with [employer] and CTS and pt was moved to ICU for closer monitoring on 01/04 - Vancomycin (01/02 - present) - Zosyn (01/02 - present) - Clindamycin (01/04 - 01/06) - We are unable to give iv Decadron as pt reports severe allergy. - Continue liquid diet per ST - Eliquis on hold and sq heparin given. - Resume Eliquis if no intervention required on neck - Plan for repeat imaging of her neck 01/08/18 to see if fluid collections are more clearly abscess A. fib - Cont. home meds HTN - Home meds continued - Monitor Hypothyroidism - Continue home medication. (2) Lymphedema Code(s): I89.0 - Lymphedema, not elsewhere classified Status: Chronic (3) Hypothyroidism Code(s): E03.9 - Hypothyroidism, unspecified Status: Chronic (4) Hypertension Code(s): I10 - Essential (primary) hypertension Status: Chronic (5) GERD (gastroesophageal reflux disease) Code(s): K21.9 - Gastro-esophageal reflux disease without esophagitis Status: Acute (6) Atrial fibrillation Code(s): I48.91 - Unspecified atrial fibrillation Status: Chronic (1) Cellulitis Qualifiers: Site of cellulitis: extremity Site of cellulitis of extremity: upper extremity Laterality: left Qualified Code(s): L03.114 - Cellulitis of left upper limb
[2018-01-07] MEDS: HYDROmorphone PF Inj 2 MG/ML Vial IV.PUSH PRN ×6 (00:33→20:02)
[2018-01-07] MEDS: Piperacil/Tazo 3.375 GM Premix 50 ML IV.SIG SCH ×4 (00:33→18:07)
[2018-01-07 05:36] LABS: Baso % (Auto) 0.5 % (0.0-2.0); Eos # (Auto) 0.2 th/mm3 (0.0-0.4); Eos % (Auto) 2.2 % (0.0-4.0); Hematocrit 32.6 % (35.0-46.0); Hemoglobin 11.2 gm/dL (11.6-15.3); Lymph # (Auto) 1.6 th/mm3 (1.0-4.8); Lymph % (Auto) 18.6 % (9.0-44.0); Mean Corpuscular HGB Conc 34.2 % (32.0-36.0); Mean Corpuscular Hemoglobin 28.9 pg (27.0-34.0); Mean Corpuscular Volume 84.5 fL (80.0-100.0); Mean Platelet Volume 7.1 fL (7.0-11.0); Mono # (Auto) 1.2 th/mm3 (0.0-0.9); Mono % (Auto) 14.3 % (0.0-8.0); Neut # (Auto) 5.6 th/mm3 (1.8-7.7); Neut % (Auto) 64.4 % (16.0-70.0); Platelet Count 341 th/mm3 (150-450); Red Blood Count 3.85 mil/mm3 (4.00-5.30); Red Cell Distribution Width 15.4 % (11.6-17.2); White Blood Count 8.7 th/mm3 (4.0-11.0)
[2018-01-07] MEDS: Levothyroxine 112 MCG Tablet PO SCH (07:26)
[2018-01-07] MEDS: ALPRAZolam 0.25 MG Tablet PO SCH ×2 (08:34→20:06)
[2018-01-07] MEDS: Gabapentin 300 MG Capsule PO SCH ×3 (08:34→17:40)
[2018-01-07] MEDS: Heparin - SQ 10,000 UNITS/ML Vial SQ SCH ×2 (08:34→20:06)
[2018-01-07] MEDS: Pantoprazole Sodium 20 MG DR Tablet PO SCH (08:35)
[2018-01-07] MEDS: Anastrozole 1 MG Tablet PO SCH (08:36)
[2018-01-07] MEDS: Metoprolol Tartrate 50 MG Tablet PO SCH ×2 (08:36→20:06)
[2018-01-07] MEDS: Furosemide 40 MG Tablet PO SCH (08:41)
[2018-01-07] MEDS: Digoxin 125 MCG Tablet PO SCH (08:41)
[2018-01-07] MEDS: Vancomycin Inj 1,750 MG in Sodium Chlor 0.9% Inj 500 ML IV.SIG SCH (10:58)
--- NOTE | 2018-01-07 12:51 | P.PNID ---
Subjective Remarks: Patient is a 72-year-old female presented to the hospital complaining of pain, swelling, and redness in her left upper extremity as well as in her neck and left chest. Her problems started December 30 when she started experiencing swelling and pain in her left upper extremity. It progressed to spreading of the pain and swelling to her left neck and left shoulder as well as left anterior chest. She was seen by her primary care physician, and she was given a shot of antibiotics and was given oral antibiotics. She was also seen by her orthopedic doctor at that time because she wanted her left shoulder evaluated. According to the patient both physician told her to go to the hospital for further evaluation and treatment. She denies any sore throat. She has not had any coughing. She apparently had some episodes of nausea and dry heaving when she started having the problem. She denies having any kind of injury or insect bite to her left upper extremity. Patient stated that she has known arthritis on her left shoulder, and has [id number] problem. Patient has had previous lumpectomy and lymph node dissection for left breast cancer back in 2013. She has had problem with cellulitis in the left upper extremity. She can remember the last time she had an infection. She has chronic lymphedema in that arm. Since admission she has not been febrile. Her white count is normal. She has had imaging studies done and there was no evidence of DVT in the left upper extremity. She has evidence of edema on her neck with some extension into the upper mediastinum. There also describing 2 small fluid collections. Today patient had noted pain when she swallows, but she points mostly to her left chest area when she swallows. She has been transferred to the ICU for further closer monitoring. Infectious disease consultation has been requested to assist with evaluation and treatment. Notes reviewed Temps ok C/O difficulty swallowing pills and solid foods Swallowing eval - recommends thin liquids C/O persistent pain L shoulder and under axilla. 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 History of hip replacement, total History of lumpectomy of left breast History of lymph node dissection of left axilla History of total abdominal hysterectomy and bilateral salpingo-oophorectomy Hx of total knee replacement Allergies/Adverse Reactions: Allergies amlodipine Allergy (Mild, Verified 01/02/18 17:30) UNKNOWN lisinopril Allergy (Mild, Verified 01/02/18 17:30) UNKNOWN nifedipine Allergy (Mild, Verified 01/02/18 17:30) UNKNOWN NSAIDS (Non-Steroidal Anti-Inflamma Allergy (Mild, Verified 01/02/18 17:30) Hives morphine Adverse Reaction (Mild, Verified 01/02/18 17:28) Nausea/Vomiting STEROIDS Allergy (Severe, Uncoded 01/02/18 17:28) Anaphylaxis Objective Vital Signs 01/06/18 16:00 01/06/18 20:00 01/07/18 00:00 Temperature 98.4 F 98.4 F 98.6 F Pulse Rate 75 76 66 Respiratory Rate 23 21 Blood Pressure 148/78 H 137/75 178/81 H Pulse Oximetry 98 95 94 L 01/07/18 04:00 Temperature 98.4 F Pulse Rate 64 Respiratory Rate 22 Blood Pressure 188/83 H Pulse Oximetry 96 Intake & Output 01/06/18 01/07/18 01/07/18 18:59 06:59 18:59 Intake Total 1300 / 1300 1147.5 / 1147.5 50 / 50 Balance 1300 / 1300 1147.5 / 1147.5 50 / 50 Weight 113.9 kg Intake: IV 100 / 100 667.5 / 667.5 50 / 50 Zosyn 3.375 GM Premix 50 ML @ 100 / 100 100 / 100 50 / 50 100 mls/hr IV.SIG Q6H DONNA Rx#: [id number] Vancomycin Inj 1,750 MG In NS 517.5 / 517.5 Inj 500 ML @ 250 mls/hr IV.SIG Q18H DONNA Rx#:[id number] Oral 1200 / 1200 480 / 480 Other: # Voids 6 4 Date of Last Bowel Movement 01/06/18 01/06/18 01/06/18 # Bowel Movements 4 4 01/02/18 18:15 Blood - Peripheral Aerobic Blood Culture - Final No growth in 5 days 01/02/18 18:15 Blood - Peripheral Anaerobic Blood Culture - Final No growth in 5 days 01/02/18 18:30 Blood - Peripheral Aerobic Blood Culture - Final No growth in 5 days 01/02/18 18:30 Blood - Peripheral Anaerobic Blood Culture - Final No growth in 5 days Lab - Hematology Results 01/06/18 01/07/18 05:10 05:12 WBC 9.8 8.7 RBC 3.53 L 3.85 L Hgb 10.2 L 11.2 L Hct 30.4 L 32.6 L MCV 86.2 84.5 MCH 28.9 28.9 MCHC 33.5 34.2 RDW 15.2 15.4 Plt Count 324 341 MPV 8.1 7.1 Prelim Diff (Auto) Slide review pending Neut % (Auto) 66.6 64.4 Lymph % (Auto) 19.6 18.6 [place] % (Auto) 12.5 H 14.3 H Eos % (Auto) 0.8 2.2 Baso % (Auto) 0.5 0.5 Neut # (Auto) 6.5 5.6 Lymph # (Auto) 1.9 1.6 [place] # (Auto) 1.2 H 1.2 H Eos # (Auto) 0.1 0.2 Baso # (Auto) 0.0 0.0 WBC Differential . . Diff Scan Auto diff confirmed Differential Comment Auto diff final . Lab - Chemistry Results 01/06/18 05:10 Sodium 140 Potassium 3.4 L Chloride 102 Carbon Dioxide 29.1 Anion Gap 9 BUN 13 Creatinine 0.92 Estimated GFR 60 L Random Glucose 99 Calcium 8.7 Imaging: ITS Impressions Chest X-Ray 01/02/18 18:17 CONCLUSION: Mild cardiomegaly with probable basilar atelectasis. Surgical clips left axilla. No significant effusion. Venous Doppler Study 01/02/18 18:20 CONCLUSION: 1. The study is negative for upper extremity deep venous thrombosis. 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 Humerus CT 01/03/18 00:00 Humerus is unremarkable. CONCLUSION: 1. I don't see a defined fluid collection to suggest a deep space abscess. 2. Ultrasound could be used to follow. Neck MRI 01/03/18 00:00 CONCLUSION: 1. Extensive cellulitis of the lower anterior neck extending into the anterior chest wall and upper mediastinum. Probable 14 mm abscess in the left anterior neck near the level of the glottis and additional developing abscess in the upper anterior mediastinum measuring 2 cm in diameter with a sinus tract extending to the more superior abscess collection. Questionable early osteomyelitis of the manubrium. Soft Tissue Neck CT 01/03/18 00:00 CONCLUSION: 1. Enlargement of the left strap muscles suggestive of injury and possible hematoma. Diffuse subcutaneous edema is also noted surrounding the strap muscles particularly on the left. Physical Exam: GENERAL: awake and alert, not in respiratory distress. SKIN: Warm and dry. No generalized rash, no ecchymoses and no evidence of embolic lesions. HEAD: Atraumatic. Normocephalic. No temporal wasting, or tenderness. EYES: [place] conjunctiva. No petechia or hemorrhage. Pupils equal, round and reactive to light. Extraocular movements full and intact. No scleral icterus. No injection or drainage. EARS, NOSE AND THROAT: Nose without bleeding or purulent nasal discharge. No sinus tenderness. Mucous membranes pink and moist. No oral lesions noted. No exudate. No oral thrush. NECK: Has tenderness in neck. Area of swelling and induration of anterior neck that extends to the left side of her neck looks much improved, induration is smaller. Has improving erythema to supraclavicular area, with tenderness, no fluctuance, looks better. She is also very tender anterior chest that goes down to the sternal region and down to her L anterior chest. BREAST: Looks ok with no induration on breast CARDIOVASCULAR: Regular rate and rhythm. No murmurs, rubs or gallops heard RESPIRATORY: Clear to auscultation. Breath sounds equal bilaterally. No rales , wheezing or rhonchi ABDOMEN: Soft, non-tender, nondistended. Bowel sounds present and normoactive. No guarding. No rebound. No organomegaly. EXTREMITIES: No clubbing, cyanosis. Her LUE is larger compared to her RUE, and she has improving patches of erythema . L shoulder tender to palpation, pain with movement. She complains of pain under her L armpit when her LUE gets moved passively, still present and unchanged. No calf tenderness. Well perfused and warm. NEUROLOGICAL: Grossly within normal limits. PSYCHIATRIC: Normal affect, calm and cooperative. LINE: No evidence of infection Assessment and Plan - Plan Impression LUE cellulitis Cellulitis L neck, anterior chest, etiology? - early abscess - better Hx lymphedema LUE from prior axilary LN dissection Hx GBS sepsis and R psoas abscess 2014 Recommendation Continue Vanco Continue Zosyn Monitor progress MRI L shoulder
[2018-01-07] MEDS ORDERED: Gadobutrol PF 10 MMOL/10 ML Vial (for RAD) IV.SIG ONE (16:54)
--- NOTE | 2018-01-07 17:49 | MR ---
EXAM DATE: 01/07/2018 2:20 PM EDT AGE/SEX: 72 years / Female INDICATIONS: . Joint pain. CLINICAL DATA: This is the patient's initial encounter. Patient reports that signs and symptoms have been present for > 1 year and indicates a pain score of 9/10. MEDICAL/SURGICAL HISTORY: Hypothyroidism. Hypertension. Carcinoma, breast. Hysterectomy. Bila teral hip replacement, Bilateral knee replacment. COMPARISON: [facility], MR SHOULDER W/O CONTRAST, LEFT, 08/28/2017. . TECHNIQUE: Multiplanar, multisequence MRI examination was performed without and with 10 ml Gadavist (gadobutrol) contrast as a single exam dose. FINDINGS: Comparison is August 28, 2017. Again seen is severe diffuse rotator cuff tendinopathy with a macerated t ear involving the distal supraspinatus around 1.5 cm in diameter, similar to prior examination. There is mild subacromial and subdeltoid bursitis. There is severe osteoarthritis of the glenohumeral joint with subchondral cystic changes on both side s of the joint and marrow edema. There are chronic degenerative appearing circumferential tears of th e labrum. Moderate long head tendinosis of the biceps tendon. There is a small joint effusion with synovitis and some enhancement of the joint lining postcontrast likely from inflammation. Synovial debris and small osteochondral loose bodies present in the axillar y recess. Type II acromion with mild acromial spurring. Severe osteoarthritis at the AC joint. CONCLUSION: 1. Severe diffuse rotator cuff tendinosis similar to prior exam with partial thickness tear measurin g up to about 15 mm in diameter. 2. Severe chronic osteoarthritis with presumably reactive effusion and synovitis that enhances postc ontrast. Synovial debris and small osteochondral bodies in the axillary recess. 3. Mild subacromial and subdeltoid and subcoracoid bursitis. 4. Severe degenerative change at the AC joint. Electronically signed by: Lorne Curran MD 01/07/2018 5:48 PM EDT
--- NOTE | 2018-01-07 17:54 | P.PNIM ---
Subjective Interval history: No new complaints. Physical Exam Vital signs: 01/07/18 08:00 01/07/18 12:00 Temperature 98.7 F 98.7 F Pulse Rate 74 65 Respiratory Rate 18 18 Blood Pressure 186/91 H 144/78 H Pulse Oximetry 93 L 96 Narrative: General: NAD, AAOx3 Skin: Chronic lymphedema left upper extremity.Erythema has improved Cardiac: Regular rate and rhythm. No significant murmurs appreciated. Chest: CTA bilaterally. Abd: +BS, soft, non-tender, nondistended. Ext: Lymphedema left upper extremity. Results - Labs CBC & Chem 7: 01/07/18 05:12 01/06/18 05:10 Microbiology 01/02/18 18:15 Blood - Peripheral Aerobic Blood Culture - Final No growth in 5 days 01/02/18 18:15 Blood - Peripheral Anaerobic Blood Culture - Final No growth in 5 days 01/02/18 18:30 Blood - Peripheral Aerobic Blood Culture - Final No growth in 5 days 01/02/18 18:30 Blood - Peripheral Anaerobic Blood Culture - Final No growth in 5 days - Imaging Shoulder MRI 01/07/18 00:00 1. Severe diffuse rotator cuff tendinosis similar to prior exam with partial thickness tear measuring up to about 15 mm in diameter. 2. Severe chronic osteoarthritis with presumably reactive effusion and synovitis that enhances postcontrast. Synovial debris and small osteochondral bodies in the axillary recess. 3. Mild subacromial and subdeltoid and subcoracoid bursitis. 4. Severe degenerative change at the AC joint. Assessment and Plan - Assessment (1) Cellulitis Code(s): L03.90 - Cellulitis, unspecified Status: Acute Plan: Cellulitis, LUE/shoulder/neck Lymphedema LUE Ant neck/mediastinum abscess. airway compromise - Pt is a 72 y/o female with chronic left upper extremity lymphedema s/p left breast lumpectomy and axillary node surgery - Pt presented [place] [facility] [place] with left arm pain and redness. The patient states that the pain started three days prior to arrival in the ED. The patient states that the pain is localized to the left shoulder down to the left hand but also involves some spasm of her left neck. - She has visited her primary care physician twice regarding this and has been given Rocephin injection 2 as an outpatient and was started on Bactrim 1 day prior to arrival per record review. The arm swelling, pain and redness have increased despite these interventions. - LUE US was negative for DVT - Blood cultures (01/02) with NGTD - Venous Doppler Study (01/02/18): 1. The study is negative for upper extremity deep venous thrombosis. - Humerus CT (01/03/18): - Humerus is unremarkable. - I don't see a defined fluid collection to suggest a deep space abscess. - Neck MRI (01/03/18): 1. Extensive cellulitis of the lower anterior neck extending into the anterior chest wall and upper mediastinum. Probable 14 mm abscess in the left anterior neck near the level of the glottis and additional developing abscess in the upper anterior mediastinum measuring 2 cm in diameter with a sinus tract extending to the more superior abscess collection. Questionable early osteomyelitis of the manubrium. - Soft Tissue Neck CT (01/03/18) 1. Enlargement of the left strap muscles suggestive of injury and possible hematoma. Diffuse subcutaneous edema is also noted surrounding the strap muscles particularly on the left. - Pt was having more difficulty speaking and swallowing 01/04 - Spoke with Wr[employer] Chaser and CTS and pt was moved to ICU for closer monitoring on 01/04 - Vancomycin (01/02 - present) - Zosyn (01/02 - present) - Clindamycin (01/04 - 01/06) - We are unable to give iv Decadron as pt reports severe allergy. - Continue liquid diet per ST - Eliquis on hold and sq heparin given. - Resume Eliquis if no intervention required on neck - repeat imaging of her neck tomorrow 01/08/18 to see if fluid collections are more clearly abscess A. fib - Cont. home meds HTN - Home meds continued - Monitor Hypothyroidism - Continue home medication. (2) Lymphedema Code(s): I89.0 - Lymphedema, not elsewhere classified Status: Chronic (3) Hypothyroidism Code(s): E03.9 - Hypothyroidism, unspecified Status: Chronic (4) Hypertension Code(s): I10 - Essential (primary) hypertension Status: Chronic (5) GERD (gastroesophageal reflux disease) Code(s): K21.9 - Gastro-esophageal reflux disease without esophagitis Status: Acute (6) Atrial fibrillation Code(s): I48.91 - Unspecified atrial fibrillation Status: Chronic (1) Cellulitis Qualifiers: Site of cellulitis: extremity Site of cellulitis of extremity: upper extremity Laterality: left Qualified Code(s): L03.114 - Cellulitis of left upper limb
[2018-01-07] MEDS: Lidocaine 5% Patch T-DERMAL SCH (18:52)
[2018-01-08] MEDS: HYDROmorphone PF Inj 2 MG/ML Vial IV.PUSH PRN ×3 (00:58→18:27)
[2018-01-08] MEDS: Piperacil/Tazo 3.375 GM Premix 50 ML IV.SIG SCH ×4 (01:18→18:28)
[2018-01-08] MEDS: Vancomycin Inj 1,750 MG in Sodium Chlor 0.9% Inj 500 ML IV.SIG SCH ×2 (03:44→22:48)
[2018-01-08] MEDS: Levothyroxine 112 MCG Tablet PO SCH (06:07)
[2018-01-08 06:37] LABS: Calcium 8.4 mg/dL (8.5-10.1); Carbon Dioxide 30.3 meq/L (21.0-32.0); Magnesium 1.5 mg/dL (1.5-2.5); Potassium 3.6 meq/L (3.5-5.1)
[2018-01-08] MEDS ORDERED: Gadobutrol PF 10 MMOL/10 ML Vial (for RAD) IV.SIG ONE (09:41)
--- NOTE | 2018-01-08 10:00 | MR ---
EXAM DATE: 01/08/2018 8:25 AM EDT AGE/SEX: 72 years / Female INDICATIONS: Abscess. CLINICAL DATA: This is the patient's subsequent encounter. Patient reports that signs and symptoms h ave been present for 4 - 6 days and indicates a pain score of 2/10. MEDICAL/SURGICAL HISTORY: Hypothyroidism. Hypertension. Carcinoma, breast. GERD. Hysterecto my. Total knee replacement, left. Total knee replacement, right. Bilateral hip replacements. Left lumpectomy. COMPARISON: [facility] [place], MR SOFT TISSUE NECK W & W/O CON, 01/03/2018. [facility] [place], CT SOFT TISSUE NECK W/O CONTR AST, 01/03/2018. . TECHNIQUE: Multisequence, multiplanar MRI examination was performed without contrast and after the i ntravenous administration of 10 ml Gadavist (gadobutrol) contrast as a single exam dose. FINDINGS: There is severe subcutaneous edema within the inferior neck bilaterally and left superior neck. As de scribed previously there is an organized rim-enhancing fluid collection anterior to and abutting the left thyroid cartilage deep to the palpable marker. This structure measures approximately 1.8 x 1.3 c m compared to 1.6 x 1.2 cm previously. This also appears to be contiguous more inferiorly on the left with a rim-enhancing T2 hyperintense collection measuring approximately 2.8 x 1.8 cm compared to 2.3 x 1.7 cm previously. This abnormality abuts the superior aspect of the left sternoclavicular joint. The inflammatory changes extend into the visible superior mediastinum. There is increased T2 signal w ithin the medial left clavicle and superior aspect of the sternum and there is fluid within the branch oclavicular joints bilaterally. There may be a mild degree of enhancement of the left medial clavicle and superior aspect of the sternum. The inflammatory changes are adjacent to the thyroid gland. Airw ay does not appear narrowed and compromised. There is an enlarged left supraclavicular lymph node lila suring approximately 1.8 x 1.4 cm compared to 2.2 x 1.4 cm previously. Smaller lymph nodes are visual ized bilaterally. CONCLUSION: 1. Persistent severe inflammation would likely cellulitis in the inferior neck, greatest on the left . There are 2 rim-enhancing fluid like collection suspicious for abscesses. The more superior is loca mario anterior to the left thyroid cartilage and measures 1.8 x 1.3 cm compared to 1.6 x 1.2 cm previou sly suggesting mild enlargement. The more inferior and abuts the sternoclavicular joint and measures 2.8 x 1.8 cm compared to 2.3 x 1.7 cm previously also suggesting mild enlargement. 2. The abnormal inflammatory change extends into the visualized superior mediastinum. At some point it would be reasonable to further evaluate the entire chest for full extent of disease. 3. There is abnormal signal and enhancement within the superior aspect of the sternum, medial left c lavicle, and surrounding the left sternoclavicular joint concerning for osteomyelitis and potentially septic joint. 4. There is a single enlarged left supraclavicular lymph node that has actually slightly decreased i n size since the study from 5 days ago. Electronically signed by: Leighton Cobb MD 01/08/2018 9:59 AM EDT
[2018-01-08] MEDS: Lidocaine 5% Patch T-DERMAL SCH (10:52)
[2018-01-08] MEDS: Heparin - SQ 10,000 UNITS/ML Vial SQ SCH ×2 (10:54→20:36)
[2018-01-08] MEDS: Furosemide 40 MG Tablet PO SCH (10:56)
[2018-01-08] MEDS: Gabapentin 300 MG Capsule PO SCH ×3 (10:56→17:26)
[2018-01-08] MEDS: Metoprolol Tartrate 50 MG Tablet PO SCH ×2 (10:56→20:37)
[2018-01-08] MEDS: Digoxin 125 MCG Tablet PO SCH (10:56)
[2018-01-08] MEDS: ALPRAZolam 0.25 MG Tablet PO SCH ×2 (10:57→20:37)
[2018-01-08] MEDS: Pantoprazole Sodium 20 MG DR Tablet PO SCH (10:57)
[2018-01-08] MEDS: Anastrozole 1 MG Tablet PO SCH (10:58)
--- NOTE | 2018-01-08 14:12 | P.PNID ---
Subjective Remarks: Patient is a 72-year-old female presented to the hospital complaining of pain, swelling, and redness in her left upper extremity as well as in her neck and left chest. Her problems started December 30 when she started experiencing swelling and pain in her left upper extremity. It progressed to spreading of the pain and swelling to her left neck and left shoulder as well as left anterior chest. She was seen by her primary care physician, and she was given a shot of antibiotics and was given oral antibiotics. She was also seen by her orthopedic doctor at that time because she wanted her left shoulder evaluated. According to the patient both physician told her to go to the hospital for further evaluation and treatment. She denies any sore throat. She has not had any coughing. She apparently had some episodes of nausea and dry heaving when she started having the problem. She denies having any kind of injury or insect bite to her left upper extremity. Patient stated that she has known arthritis on her left shoulder, and has [id number] problem. Patient has had previous lumpectomy and lymph node dissection for left breast cancer back in 2013. She has had problem with cellulitis in the left upper extremity. She can remember the last time she had an infection. She has chronic lymphedema in that arm. Since admission she has not been febrile. Her white count is normal. She has had imaging studies done and there was no evidence of DVT in the left upper extremity. She has evidence of edema on her neck with some extension into the upper mediastinum. There also describing 2 small fluid collections. Today patient had noted pain when she swallows, but she points mostly to her left chest area when she swallows. She has been transferred to the ICU for further closer monitoring. Infectious disease consultation has been requested to assist with evaluation and treatment. 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 History of hip replacement, total History of lumpectomy of left breast History of lymph node dissection of left axilla History of total abdominal hysterectomy and bilateral salpingo-oophorectomy Hx of total knee replacement Allergies/Adverse Reactions: Allergies amlodipine Allergy (Mild, Verified 01/02/18 17:30) UNKNOWN lisinopril Allergy (Mild, Verified 01/02/18 17:30) UNKNOWN nifedipine Allergy (Mild, Verified 01/02/18 17:30) UNKNOWN NSAIDS (Non-Steroidal Anti-Inflamma Allergy (Mild, Verified 01/02/18 17:30) Hives morphine Adverse Reaction (Mild, Verified 01/02/18 17:28) Nausea/Vomiting STEROIDS Allergy (Severe, Uncoded 01/02/18 17:28) Anaphylaxis Objective Vital Signs 01/07/18 16:00 01/07/18 20:00 01/07/18 20:30 Temperature 99.5 F 98.8 F Pulse Rate 80 77 Respiratory Rate 20 16 18 Blood Pressure 146/68 H 142/76 H Pulse Oximetry 96 01/08/18 00:00 01/08/18 04:00 01/08/18 08:00 Temperature 98.4 F 98.4 F 98.5 F Pulse Rate 90 64 62 Respiratory Rate 22 23 16 Blood Pressure 157/78 H 157/78 H 168/76 H Pulse Oximetry 92 L Intake & Output 01/07/18 01/08/18 01/08/18 18:59 06:59 18:59 Intake Total 2337.5 / 2337.5 857.5 / 857.5 530 / 530 Output Total 4 / 4 Balance 2337.5 / 2337.5 853.5 / 853.5 530 / 530 Weight 116.7 kg Intake: IV 1617.5 / 1617.5 617.5 / 617.5 50 / 50 Zosyn 3.375 GM Premix 50 ML @ 100 / 100 100 / 100 50 / 50 100 mls/hr IV.SIG Q6H DONNA Rx#: [id number] Vancomycin Inj 1,750 MG In NS 517.5 / 517.5 517.5 / 517.5 Inj 500 ML @ 250 mls/hr IV.SIG Q18H DONNA Rx#:[id number] Oral 720 / 720 240 / 240 480 / 480 Output: Urine 4 / 4 Other: # Voids 6 4 1 Date of Last Bowel Movement 01/07/18 01/08/18 01/08/18 # Bowel Movements 5 4 1 01/02/18 18:15 Blood - Peripheral Aerobic Blood Culture - Final No growth in 5 days 01/02/18 18:15 Blood - Peripheral Anaerobic Blood Culture - Final No growth in 5 days 01/02/18 18:30 Blood - Peripheral Aerobic Blood Culture - Final No growth in 5 days 01/02/18 18:30 Blood - Peripheral Anaerobic Blood Culture - Final No growth in 5 days Lab - Hematology Results 01/07/18 05:12 WBC 8.7 RBC 3.85 L Hgb 11.2 L Hct 32.6 L MCV 84.5 MCH 28.9 MCHC 34.2 RDW 15.4 Plt Count 341 MPV 7.1 Prelim Diff (Auto) Slide review pending Neut % (Auto) 64.4 Lymph % (Auto) 18.6 Martin % (Auto) 14.3 H Eos % (Auto) 2.2 Baso % (Auto) 0.5 Neut # (Auto) 5.6 Lymph # (Auto) 1.6 Martin # (Auto) 1.2 H Eos # (Auto) 0.2 Baso # (Auto) 0.0 WBC Differential . Diff Scan Auto diff confirmed Differential Comment . Lab - Chemistry Results 01/08/18 05:28 Sodium 140 Potassium 3.6 Chloride 100 Carbon Dioxide 30.3 Anion Gap 10 BUN 8 Creatinine 0.85 Estimated GFR 66 L Random Glucose 110 H Calcium 8.4 L Magnesium 1.5 Imaging: ITS Impressions Chest X-Ray 01/02/18 18:17 CONCLUSION: Mild cardiomegaly with probable basilar atelectasis. Surgical clips left axilla. No significant effusion. Venous Doppler Study 01/02/18 18:20 CONCLUSION: 1. The study is negative for upper extremity deep venous thrombosis. 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 Humerus CT 01/03/18 00:00 Humerus is unremarkable. CONCLUSION: 1. I don't see a defined fluid collection to suggest a deep space abscess. 2. Ultrasound could be used to follow. Soft Tissue Neck CT 01/03/18 00:00 CONCLUSION: 1. Enlargement of the left strap muscles suggestive of injury and possible hematoma. Diffuse subcutaneous edema is also noted surrounding the strap muscles particularly on the left. Shoulder MRI 01/07/18 00:00 CONCLUSION: 1. Severe diffuse rotator cuff tendinosis similar to prior exam with partial thickness tear measuring up to about 15 mm in diameter. 2. Severe chronic osteoarthritis with presumably reactive effusion and synovitis that enhances postcontrast. Synovial debris and small osteochondral bodies in the axillary recess. 3. Mild subacromial and subdeltoid and subcoracoid bursitis. 4. Severe degenerative change at the AC joint. Neck MRI 01/08/18 06:58 CONCLUSION: 1. Persistent severe inflammation would likely cellulitis in the inferior neck , greatest on the left. There are 2 rim-enhancing fluid like collection suspicious for abscesses. The more superior is located anterior to the left thyroid cartilage and measures 1.8 x 1.3 cm compared to 1.6 x 1.2 cm previously suggesting mild enlargement. The more inferior and abuts the sternoclavicular joint and measures 2.8 x 1.8 cm compared to 2.3 x 1.7 cm previously also suggesting mild enlargement. 2. The abnormal inflammatory change extends into the visualized superior mediastinum. At some point it would be reasonable to further evaluate the entire chest for full extent of disease. 3. There is abnormal signal and enhancement within the superior aspect of the sternum, medial left clavicle, and surrounding the left sternoclavicular joint concerning for osteomyelitis and potentially septic joint. 4. There is a single enlarged left supraclavicular lymph node that has actually slightly decreased in size since the study from 5 days ago. Physical Exam: GENERAL: awake and alert, not in respiratory distress. SKIN: Warm and dry. No generalized rash EYES: [place] conjunctiva. No petechia or hemorrhage. Pupils equal, round and reactive to light. Extraocular movements full and intact. No scleral icterus. No injection or drainage. EARS, NOSE AND THROAT: Nose without bleeding or purulent nasal discharge. No sinus tenderness. Mucous membranes pink and moist. No oral lesions noted. No exudate. No oral thrush. NECK: Has tenderness in neck. Area of swelling and induration of anterior neck that extends to the left side of her neck looks much improved, induration is smaller. Has improving erythema to supraclavicular area, less tenderness, no fluctuance, looks better. BREAST: Looks ok with no induration on breast CARDIOVASCULAR: Regular rate and rhythm. No murmurs, rubs or gallops heard RESPIRATORY: Clear to auscultation. Breath sounds equal bilaterally. No rales , wheezing or rhonchi ABDOMEN: Soft, non-tender, nondistended. Bowel sounds present and normoactive. No guarding. No rebound. No organomegaly. EXTREMITIES: No clubbing, cyanosis. Her LUE is larger compared to her RUE, and erythema almost resolved. L shoulder less tender to palpation, pain with movement. She complains of pain under her L armpit when her LUE gets moved passively, still present and unchanged. No calf tenderness. NEUROLOGICAL: Grossly within normal limits. PSYCHIATRIC: Normal affect, calm and cooperative. LINE: No evidence of infection Assessment and Plan - Plan Impression LUE cellulitis, almost resolved Cellulitis L neck, anterior chest, etiology? - early abscess, size slight increase in size, but overall appearance looks much improved - better Hx lymphedema LUE from prior axilary LN dissection Hx GBS sepsis and R psoas abscess 2015 Recommendation Continue Vanco Continue Zosyn Monitor progress Fluid collections are all small on MRI
[2018-01-08] MEDS ORDERED: Pharmacy Ordered Lab Info OTHER ONE (21:45)
[2018-01-08] MEDS ORDERED: HYDROmorphone PF Inj 2 MG/ML Vial IV.PUSH PRN (21:56)
[2018-01-09] MEDS: Piperacil/Tazo 3.375 GM Premix 50 ML IV.SIG SCH ×4 (03:14→20:25)
[2018-01-09] MEDS: Levothyroxine 112 MCG Tablet PO SCH (06:46)
--- NOTE | 2018-01-09 08:20 | P.PNCV ---
- Note Subjective/Hospital Course: Improving with less c/o pain. Much more lucid. 01/09/[address] Rendon yesterday afternoon to review new imaging. She underwent repeat MRI of the neck and continues to have soft tissue swelling and edema with 2 small fluid collections which are slightly bigger. Objective: Vital Signs - 24 hr 01/08/18 12:00 01/08/18 16:00 01/08/18 18:22 Temperature 98.1 F 99.3 F 98.4 F Pulse Rate 82 73 74 Respiratory Rate 19 16 17 Blood Pressure 160/86 H 181/79 H 189/84 H Pulse Oximetry 96 01/08/18 20:00 01/09/18 00:00 01/09/18 04:26 Temperature 99.5 F 98.3 F Pulse Rate 75 70 Respiratory Rate 16 16 20 Blood Pressure 127/62 158/72 H Pulse Oximetry 96 95 Labs: Laboratory Results - last 12 hr 01/08/18 01/09/18 20:50 05:05 BUN 8 Creatinine 0.95 Estimated GFR 58 L Vancomycin Trough 22.0 H Result Diagrams: 01/07/18 05:12 01/09/18 05:05 Imaging: Chest X-Ray 01/02/18 18:17 CONCLUSION: Mild cardiomegaly with probable basilar atelectasis. Surgical clips left axilla. No significant effusion. Venous Doppler Study 01/02/18 18:20 CONCLUSION: 1. The study is negative for upper extremity deep venous thrombosis. 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 Humerus CT 01/03/18 00:00 Humerus is unremarkable. CONCLUSION: 1. I don't see a defined fluid collection to suggest a deep space abscess. 2. Ultrasound could be used to follow. Soft Tissue Neck CT 01/03/18 00:00 CONCLUSION: 1. Enlargement of the left strap muscles suggestive of injury and possible hematoma. Diffuse subcutaneous edema is also noted surrounding the strap muscles particularly on the left. Shoulder MRI 01/07/18 00:00 CONCLUSION: 1. Severe diffuse rotator cuff tendinosis similar to prior exam with partial thickness tear measuring up to about 15 mm in diameter. 2. Severe chronic osteoarthritis with presumably reactive effusion and synovitis that enhances postcontrast. Synovial debris and small osteochondral bodies in the axillary recess. 3. Mild subacromial and subdeltoid and subcoracoid bursitis. 4. Severe degenerative change at the AC joint. Neck MRI 01/08/18 06:58 CONCLUSION: 1. Persistent severe inflammation would likely cellulitis in the inferior neck , greatest on the left. There are 2 rim-enhancing fluid like collection suspicious for abscesses. The more superior is located anterior to the left thyroid cartilage and measures 1.8 x 1.3 cm compared to 1.6 x 1.2 cm previously suggesting mild enlargement. The more inferior and abuts the sternoclavicular joint and measures 2.8 x 1.8 cm compared to 2.3 x 1.7 cm previously also suggesting mild enlargement. 2. The abnormal inflammatory change extends into the visualized superior mediastinum. At some point it would be reasonable to further evaluate the entire chest for full extent of disease. 3. There is abnormal signal and enhancement within the superior aspect of the sternum, medial left clavicle, and surrounding the left sternoclavicular joint concerning for osteomyelitis and potentially septic joint. 4. There is a single enlarged left supraclavicular lymph node that has actually slightly decreased in size since the study from 5 days ago. Cardiovascular: RRR Pulmonary: CTA GI/: NABS, NT Edema: Edema and tenderness of the neck and area of the sternal notch which is improved since admission. - Plan (2) Cellulitis The patient continues to have swelling and pain in the left shoulder and neck. She also c/o pain in the upper left chest. There is no documented infection to explain her symptoms and findings. Recommend CT or ultrasound guided aspiration and drainage of these fluid collections for diagnostic and potentially therapeutic benefit. I do not see a fluid collection related to the left sternoclavicular joint, so do not see a benefit in intervening on this area. (2) Cellulitis Qualifiers: Site of cellulitis: extremity Site of cellulitis of extremity: upper extremity Laterality: left Qualified Code(s): L03.114 - Cellulitis of left upper limb
[2018-01-09] MEDS: ALPRAZolam 0.25 MG Tablet PO SCH ×2 (09:53→20:24)
[2018-01-09] MEDS: Metoprolol Tartrate 50 MG Tablet PO SCH ×2 (09:53→20:24)
[2018-01-09] MEDS: Lidocaine 5% Patch T-DERMAL SCH (09:53)
[2018-01-09] MEDS: Gabapentin 300 MG Capsule PO SCH ×3 (09:54→18:54)
[2018-01-09] MEDS: Pantoprazole Sodium 20 MG DR Tablet PO SCH (09:54)
[2018-01-09] MEDS: Digoxin 125 MCG Tablet PO SCH (09:54)
[2018-01-09] MEDS: Furosemide 40 MG Tablet PO SCH (09:54)
[2018-01-09] MEDS: Heparin - SQ 10,000 UNITS/ML Vial SQ SCH ×2 (09:55→20:25)
[2018-01-09] MEDS: Anastrozole 1 MG Tablet PO SCH (09:56)
--- NOTE | 2018-01-09 11:51 | MD ---
cc: Camilo Montgomery MD DATE OF DISCHARGE: HISTORY OF PRESENT ILLNESS: The patient is a 72-year-old female who has a neck/chest infectious process, which has been present for at least 5-7 days requiring IV antibiotics and concern is is drainage indicated. PHYSICAL EXAMINATION: Physical exam today reveals: FACE: WNL. EARS: WNL. NOSE: Nasal cavity WNL. MOUTH: Oral cavity WNL. NECK: Reveals some fullness in the left sternoclavicular region with tenderness above and below the clavicle with no fluctuance. Trachea is midline and mobile. DIAGNOSTIC DATA: CT reveals a small attenuation just behind the clavicle on the right side. IMPRESSION AND PLAN: Chest/neck infection without obvious need for drainage at this time. If drainage is needed, we in the ear, nose, and throat community are not comfortable in this region of low neck. It is a place where we rarely go for any operation and would be uncomfortable performing an incision and drainage. It would be more advantageous and lower risk for the patient to have radiology do intervention to drain it or to consider the chest doctors. Reconsult if needed. MD BENNIE New/jeremy , 11:27 AM , 11:33 AM
[2018-01-09] MEDS ORDERED: Gadobutrol PF 10 MMOL/10 ML Vial (for RAD) IV.SIG ONE (12:42)
--- NOTE | 2018-01-09 13:03 | MR ---
EXAM DATE: 01/09/2018 11:35 AM EDT AGE/SEX: 72 years / Female INDICATIONS: Sternal pain with an abnormal prior MRI. CLINICAL DATA: This is the patient's subsequent encounter. Patient reports that signs and symptoms h ave been present for 1 week and indicates a pain score of 3/10. MEDICAL/SURGICAL HISTORY: Hypothyroidism. Hypertension. Carcinoma, breast. GERD Hysterectom y. hip replacement bilateral, knee replacement bilateral, lumpectomy COMPARISON: [facility] [place], MR SOFT TISSUE NECK W & W/O CON, 01/08/2018. . TECHNIQUE: Multiplanar, multisequence MRI examination was performed without and with 10 ml Gadavist (gadobutrol) contrast as single exam dose. FINDINGS: Again seen is abnormal marrow edema and enhancement in the medial left clavicle and upper left manubr ium on both sides of the sternoclavicular joint. Findings remain suspicious for osteomyelitis and sep tic arthritis of the left sternoclavicular joint. There is also some abnormal marrow signal in the ri ght side of the manubrium and some questionable edema in the medial right clavicle that could indicat e an early septic arthritis as well. The previous enhancing fluid collection near the sternoclavicular joint in the upper anterior mediast inum now measures about 2.2 x 1.3 cm and is slightly decreased since prior examination. There are per sistent inflammatory changes in the anterior chest wall ending in the superior mediastinum. Exam is d egraded by motion artifact. CONCLUSION: 1. Probable septic arthritis and osteomyelitis at the left sternoclavicular joint and to a lesser ex tent on the right side. Previous superior mediastinal abscess appears slightly decreased in size. Ext ensive cellulitis in the upper anterior chest remains. Exam degraded by motion artifact. Electronically signed by: Lorne Curran MD 01/09/2018 1:01 PM EDT
[2018-01-09] MEDS: Vancomycin Inj 1,750 MG in Sodium Chlor 0.9% Inj 500 ML IV.SIG SCH (16:45)
--- NOTE | 2018-01-09 17:23 | P.PNIM ---
Subjective Interval history: pt continues to c/o pain at left shoulder and left upper chest Physical Exam Vital signs: 01/09/18 04:26 01/09/18 08:00 01/09/18 15:51 Temperature 99.0 F 97.8 F Pulse Rate 61 68 Respiratory Rate 20 18 18 Blood Pressure 127/82 161/74 H Pulse Oximetry 95 97 Narrative: General: NAD, AAOx3 Skin: Chronic lymphedema left upper extremity.Erythema has improved Cardiac: Regular rate and rhythm. No significant murmurs appreciated. Chest: CTA bilaterally. Abd: +BS, soft, non-tender, nondistended. Ext: Lymphedema left upper extremity. Results - Labs CBC & Chem 7: 01/07/18 05:12 01/10/18 02:32 Assessment and Plan - Assessment (1) Cellulitis Code(s): L03.90 - Cellulitis, unspecified Status: Acute Plan: Cellulitis, LUE/shoulder/neck Lymphedema LUE Ant neck/mediastinum abscess. airway compromise - Pt is a 72 y/o female with chronic left upper extremity lymphedema s/p left breast lumpectomy and axillary node surgery - [place] [facility] [place] with left arm pain and redness. The patient states that the pain started three days prior to arrival in the ED. The patient states that the pain is localized to the left shoulder down to the left hand but also involves some spasm of her left neck. - She has visited her primary care physician twice regarding this and has been given Rocephin injection 2 as an outpatient and was started on Bactrim 1 day prior to arrival per record review. The arm swelling, pain and redness have increased despite these interventions. - LUE US was negative for DVT - Blood cultures (01/02) with NGTD - Venous Doppler Study (01/02/18): 1. The study is negative for upper extremity deep venous thrombosis. - Humerus CT (01/03/18): - Humerus is unremarkable. - I don't see a defined fluid collection to suggest a deep space abscess. - Neck MRI (01/03/18): 1. Extensive cellulitis of the lower anterior neck extending into the anterior chest wall and upper mediastinum. Probable 14 mm abscess in the left anterior neck near the level of the glottis and additional developing abscess in the upper anterior mediastinum measuring 2 cm in diameter with a sinus tract extending to the more superior abscess collection. Questionable early osteomyelitis of the manubrium. - Soft Tissue Neck CT (01/03/18) 1. Enlargement of the left strap muscles suggestive of injury and possible hematoma. Diffuse subcutaneous edema is also noted surrounding the strap muscles particularly on the left. - Shoulder MRI 01/07/18 00:00 1. Severe diffuse rotator cuff tendinosis similar to prior exam with partial thickness tear measuring up to about 15 mm in diameter. 2. Severe chronic osteoarthritis with presumably reactive effusion and synovitis that enhances postcontrast. Synovial debris and small osteochondral bodies in the axillary recess. 3. Mild subacromial and subdeltoid and subcoracoid bursitis. 4. Severe degenerative change at the AC joint. - Neck MRI 01/08/18 06:58 1. Persistent severe inflammation would likely cellulitis in the inferior neck , greatest on the left. There are 2 rim-enhancing fluid like collection suspicious for abscesses. The more superior is located anterior to the left thyroid cartilage and measures 1.8 x 1.3 cm compared to 1.6 x 1.2 cm previously suggesting mild enlargement. The more inferior and abuts the sternoclavicular joint and measures 2.8 x 1.8 cm compared to 2.3 x 1.7 cm previously also suggesting mild enlargement. 2. The abnormal inflammatory change extends into the visualized superior mediastinum. At some point it would be reasonable to further evaluate the entire chest for full extent of disease. 3. There is abnormal signal and enhancement within the superior aspect of the sternum, medial left clavicle, and surrounding the left sternoclavicular joint concerning for osteomyelitis and potentially septic joint. 4. There is a single enlarged left supraclavicular lymph node that has actually slightly decreased in size since the study from 5 days ago. Chest MRI 01/09/18 00:00 1. Probable septic arthritis and osteomyelitis at the left sternoclavicular joint and to a lesser extent on the right side. Previous superior mediastinal abscess appears slightly decreased in size. Extensive cellulitis in the upper anterior chest remains. Exam degraded by motion artifact. - Pt was having more difficulty speaking and swallowing 01/04 - Spoke with 911 Telecommunicator and CTS and pt was moved to ICU for closer monitoring on 01/04 - Vancomycin (01/02 - present) - Zosyn (01/02 - present) - Clindamycin (01/04 - 01/06) - We are unable to give iv Decadron as pt reports severe allergy. - Continue liquid diet per ST - Eliquis on hold and sq heparin given. - Resume Eliquis if no intervention required on neck - will d/w ID, Radiology, and CVS. Appreciate input from ENT. Baltazar fib - Cont. home meds HTN - Home meds continued - Monitor Hypothyroidism - Continue home medication. (2) Lymphedema Code(s): I89.0 - Lymphedema, not elsewhere classified Status: Chronic (3) Hypothyroidism Code(s): E03.9 - Hypothyroidism, unspecified Status: Chronic (4) Hypertension Code(s): I10 - Essential (primary) hypertension Status: Chronic (5) GERD (gastroesophageal reflux disease) Code(s): K21.9 - Gastro-esophageal reflux disease without esophagitis Status: Acute (6) Atrial fibrillation Code(s): I48.91 - Unspecified atrial fibrillation Status: Chronic (1) Cellulitis Qualifiers: Site of cellulitis: extremity Site of cellulitis of extremity: upper extremity Laterality: left Qualified Code(s): L03.114 - Cellulitis of left upper limb
[2018-01-10] MEDS: Piperacil/Tazo 3.375 GM Premix 50 ML IV.SIG SCH ×4 (00:34→20:46)
[2018-01-10] MEDS: Levothyroxine 112 MCG Tablet PO SCH (06:02)
[2018-01-10] MEDS: Lidocaine 5% Patch T-DERMAL SCH (09:35)
[2018-01-10] MEDS: Digoxin 125 MCG Tablet PO SCH (09:35)
[2018-01-10] MEDS: Furosemide 40 MG Tablet PO SCH (09:35)
[2018-01-10] MEDS: ALPRAZolam 0.25 MG Tablet PO SCH ×2 (09:35→20:47)
[2018-01-10] MEDS: Gabapentin 300 MG Capsule PO SCH ×3 (09:35→18:05)
[2018-01-10] MEDS: Metoprolol Tartrate 50 MG Tablet PO SCH ×2 (09:35→20:47)
[2018-01-10] MEDS: Pantoprazole Sodium 20 MG DR Tablet PO SCH (09:35)
[2018-01-10] MEDS: Heparin - SQ 10,000 UNITS/ML Vial SQ SCH ×2 (09:36→20:47)
[2018-01-10] MEDS: Anastrozole 1 MG Tablet PO SCH (09:36)
[2018-01-10] MEDS: HYDROmorphone PF Inj 2 MG/ML Vial IV.PUSH PRN ×2 (09:37→18:05)
--- NOTE | 2018-01-10 14:26 | P.PNIM ---
Subjective Interval history: Pt c/o pain at anterior neck, left anterior chest wall, and left shoulder on palpation Physical Exam Vital signs: 01/10/18 08:00 01/10/18 12:00 Temperature 97.9 F 99.0 F Pulse Rate 70 69 Respiratory Rate 16 16 Blood Pressure 172/83 H 122/63 Pulse Oximetry 96 94 L Narrative: General: NAD, AAOx3 Skin: Chronic lymphedema left upper extremity.Erythema has improved Cardiac: Regular rate and rhythm. No significant murmurs appreciated. Chest: CTA bilaterally. Abd: +BS, soft, non-tender, nondistended. Ext: Lymphedema left upper extremity. Results - Labs CBC & Chem 7: 01/07/18 05:12 01/12/18 03:57 - Imaging Chest X-Ray 01/02/18 18:17 Mild cardiomegaly with probable basilar atelectasis. Surgical clips left axilla. No significant effusion. Venous Doppler Study 01/02/18 18:20 1. The study is negative for upper extremity deep venous thrombosis. Shoulder X-Ray 01/02/18 18:49 Moderate to severe osteoarthritis at the left shoulder. Humerus CT 01/03/18 00:00 Humerus is unremarkable. CONCLUSION: 1. I don't see a defined fluid collection to suggest a deep space abscess. 2. Ultrasound could be used to follow. Neck MRI 01/03/18 00:00 1. Extensive cellulitis of the lower anterior neck extending into the anterior chest wall and upper mediastinum. Probable 14 mm abscess in the left anterior neck near the level of the glottis and additional developing abscess in the upper anterior mediastinum measuring 2 cm in diameter with a sinus tract extending to the more superior abscess collection. Questionable early osteomyelitis of the manubrium. Soft Tissue Neck CT 01/03/18 00:00 1. Enlargement of the left strap muscles suggestive of injury and possible hematoma. Diffuse subcutaneous edema is also noted surrounding the strap muscles particularly on the left. Shoulder MRI 01/07/18 00:00 1. Severe diffuse rotator cuff tendinosis similar to prior exam with partial thickness tear measuring up to about 15 mm in diameter. 2. Severe chronic osteoarthritis with presumably reactive effusion and synovitis that enhances postcontrast. Synovial debris and small osteochondral bodies in the axillary recess. 3. Mild subacromial and subdeltoid and subcoracoid bursitis. 4. Severe degenerative change at the AC joint. Neck MRI 01/08/18 06:58 CONCLUSION: 1. Persistent severe inflammation would likely cellulitis in the inferior neck , greatest on the left. There are 2 rim-enhancing fluid like collection suspicious for abscesses. The more superior is located anterior to the left thyroid cartilage and measures 1.8 x 1.3 cm compared to 1.6 x 1.2 cm previously suggesting mild enlargement. The more inferior and abuts the sternoclavicular joint and measures 2.8 x 1.8 cm compared to 2.3 x 1.7 cm previously also suggesting mild enlargement. 2. The abnormal inflammatory change extends into the visualized superior mediastinum. At some point it would be reasonable to further evaluate the entire chest for full extent of disease. 3. There is abnormal signal and enhancement within the superior aspect of the sternum, medial left clavicle, and surrounding the left sternoclavicular joint concerning for osteomyelitis and potentially septic joint. 4. There is a single enlarged left supraclavicular lymph node that has actually slightly decreased in size since the study from 5 days ago. Chest MRI 01/09/18 00:00 CONCLUSION: 1. Probable septic arthritis and osteomyelitis at the left sternoclavicular joint and to a lesser extent on the right side. Previous superior mediastinal abscess appears slightly decreased in size. Extensive cellulitis in the upper anterior chest remains. Exam degraded by motion artifact. Assessment and Plan - Assessment (1) Cellulitis Code(s): L03.90 - Cellulitis, unspecified Status: Acute Plan: Cellulitis, LUE/shoulder/neck Lymphedema LUE Ant neck/mediastinum abscess. airway compromise - Pt is a 72 y/o female with chronic left upper extremity lymphedema s/p left breast lumpectomy and axillary node surgery - Pt presented to the ED at [facility] [place] on 01/02/18 with left arm pain and redness. The patient states that the pain started three days prior to arrival in the ED. The patient states that the pain is localized to the left shoulder down to the left hand but also involves some spasm of her left neck. - She has visited her primary care physician twice regarding this and has been given Rocephin injection 2 as an outpatient and was started on Bactrim 1 day prior to arrival per record review. The arm swelling, pain and redness have increased despite these interventions. - LUE US was negative for DVT - Blood cultures (01/02) with NGTD - Venous Doppler Study (01/02/18): 1. The study is negative for upper extremity deep venous thrombosis. - Humerus CT (01/03/18): - Humerus is unremarkable. - I don't see a defined fluid collection to suggest a deep space abscess. - Neck MRI (01/03/18): 1. Extensive cellulitis of the lower anterior neck extending into the anterior chest wall and upper mediastinum. Probable 14 mm abscess in the left anterior neck near the level of the glottis and additional developing abscess in the upper anterior mediastinum measuring 2 cm in diameter with a sinus tract extending to the more superior abscess collection. Questionable early osteomyelitis of the manubrium. - Soft Tissue Neck CT (01/03/18) 1. Enlargement of the left strap muscles suggestive of injury and possible hematoma. Diffuse subcutaneous edema is also noted surrounding the strap muscles particularly on the left. - Shoulder MRI 01/07/18 00:00 1. Severe diffuse rotator cuff tendinosis similar to prior exam with partial thickness tear measuring up to about 15 mm in diameter. 2. Severe chronic osteoarthritis with presumably reactive effusion and synovitis that enhances postcontrast. Synovial debris and small osteochondral bodies in the axillary recess. 3. Mild subacromial and subdeltoid and subcoracoid bursitis. 4. Severe degenerative change at the AC joint. - Neck MRI 01/08/18 06:58 1. Persistent severe inflammation would likely cellulitis in the inferior neck , greatest on the left. There are 2 rim-enhancing fluid like collection suspicious for abscesses. The more superior is located anterior to the left thyroid cartilage and measures 1.8 x 1.3 cm compared to 1.6 x 1.2 cm previously suggesting mild enlargement. The more inferior and abuts the sternoclavicular joint and measures 2.8 x 1.8 cm compared to 2.3 x 1.7 cm previously also suggesting mild enlargement. 2. The abnormal inflammatory change extends into the visualized superior mediastinum. At some point it would be reasonable to further evaluate the entire chest for full extent of disease. 3. There is abnormal signal and enhancement within the superior aspect of the sternum, medial left clavicle, and surrounding the left sternoclavicular joint concerning for osteomyelitis and potentially septic joint. 4. There is a single enlarged left supraclavicular lymph node that has actually slightly decreased in size since the study from 5 days ago. - Chest MRI 01/09/18 00:00 1. Probable septic arthritis and osteomyelitis at the left sternoclavicular joint and to a lesser extent on the right side. Previous superior mediastinal abscess appears slightly decreased in size. Extensive cellulitis in the upper anterior chest remains. Exam degraded by motion artifact. - Pt was having more difficulty speaking and swallowing 01/04 - Spoke with Director Business Travel and CTS and pt was moved to ICU for closer monitoring on 01/04 - Vancomycin (01/02 - present) - Zosyn (01/02 - present) - Clindamycin (01/04 - 01/06) - We are unable to give iv Decadron as pt reports severe allergy. - Continue liquid diet per ST - Eliquis on hold and sq heparin given. - Resume Eliquis if no intervention required on neck - Case d/w IR, Drs. Harvey and Oli Gar. MRI shows insuffient fluid collection for drainage catheters, but will use US guidance to obtain aspirate to send to lab for gram stain and culture - Case d/w Dr. Pritchard (01/10). Will continue current antibiotic treatment thru Saturday 01/13 & then reasses. - will d/w [facility]. Appreciate input from ENT. Baltazar fib - Cont. home meds HTN - Home meds continued - Monitor Hypothyroidism - Continue home medication. (2) Lymphedema Code(s): I89.0 - Lymphedema, not elsewhere classified Status: Chronic (3) Hypothyroidism Code(s): E03.9 - Hypothyroidism, unspecified Status: Chronic (4) Hypertension Code(s): I10 - Essential (primary) hypertension Status: Chronic (5) GERD (gastroesophageal reflux disease) Code(s): K21.9 - Gastro-esophageal reflux disease without esophagitis Status: Acute (6) Atrial fibrillation Code(s): I48.91 - Unspecified atrial fibrillation Status: Chronic (1) Cellulitis Qualifiers: Site of cellulitis: extremity Site of cellulitis of extremity: upper extremity Laterality: left Qualified Code(s): L03.114 - Cellulitis of left upper limb
--- NOTE | 2018-01-10 15:45 | P.RAD ---
Post Procedure Progress Note - Pre Procedure Diagnosis (1) Cellulitis - Post Procedure Diagnosis (1) Cellulitis - Procedure Information Procedure Date: 01/10/18 Supervising Radiologist: Kimo Harvey MD Estimated blood loss (mL): 0.5 Anesthesia: Local - Plan of Activity Patient to Unit: Nursing Unit Patient Condition: Good See PACS Report for procedural detail/treatment. Drainage Procedure Findings: 22 gauge U/S guided aspiration collection left neck
[2018-01-10] MEDS: Vancomycin Inj 1,750 MG in Sodium Chlor 0.9% Inj 500 ML IV.SIG SCH (16:39)
--- NOTE | 2018-01-10 17:06 | P.PNID ---
Subjective Remarks: Patient is a 72-year-old female presented to the hospital complaining of pain, swelling, and redness in her left upper extremity as well as in her neck and left chest. Her problems started December 30 when she started experiencing swelling and pain in her left upper extremity. It progressed to spreading of the pain and swelling to her left neck and left shoulder as well as left anterior chest. She was seen by her primary care physician, and she was given a shot of antibiotics and was given oral antibiotics. She was also seen by her orthopedic doctor at that time because she wanted her left shoulder evaluated. According to the patient both physician told her to go to the hospital for further evaluation and treatment. She denies any sore throat. She has not had any coughing. She apparently had some episodes of nausea and dry heaving when she started having the problem. She denies having any kind of injury or insect bite to her left upper extremity. Patient stated that she has known arthritis on her left shoulder, and has [id number] problem. Patient has had previous lumpectomy and lymph node dissection for left breast cancer back in 2013. She has had problem with cellulitis in the left upper extremity. She can remember the last time she had an infection. She has chronic lymphedema in that arm. Since admission she has not been febrile. Her white count is normal. She has had imaging studies done and there was no evidence of DVT in the left upper extremity. She has evidence of edema on her neck with some extension into the upper mediastinum. There also describing 2 small fluid collections. Today patient had noted pain when she swallows, but she points mostly to her left chest area when she swallows. She has been transferred to the ICU for further closer monitoring. Infectious disease consultation has been requested to assist with evaluation and treatment. 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 History of hip replacement, total History of lumpectomy of left breast History of lymph node dissection of left axilla History of total abdominal hysterectomy and bilateral salpingo-oophorectomy Hx of total knee replacement Allergies/Adverse Reactions: Allergies amlodipine Allergy (Mild, Verified 01/02/18 17:30) UNKNOWN lisinopril Allergy (Mild, Verified 01/02/18 17:30) UNKNOWN nifedipine Allergy (Mild, Verified 01/02/18 17:30) UNKNOWN NSAIDS (Non-Steroidal Anti-Inflamma Allergy (Mild, Verified 01/02/18 17:30) Hives morphine Adverse Reaction (Mild, Verified 01/02/18 17:28) Nausea/Vomiting STEROIDS Allergy (Severe, Uncoded 01/02/18 17:28) Anaphylaxis Objective Vital Signs 01/09/18 22:40 01/10/18 00:00 01/10/18 08:00 Temperature 98.9 F 99.1 F 97.9 F Pulse Rate 80 65 70 Respiratory Rate 18 16 16 Blood Pressure 140/75 162/75 H 172/83 H Pulse Oximetry 95 95 96 01/10/18 12:00 Temperature 99.0 F Pulse Rate 69 Respiratory Rate 16 Blood Pressure 122/63 Pulse Oximetry 94 L Intake & Output 01/09/18 01/10/18 01/10/18 18:59 06:59 18:59 Intake Total 860 / 860 667.5 / 667.5 50 / 50 Balance 860 / 860 667.5 / 667.5 50 / 50 Weight 113.7 kg Intake: IV 100 / 100 667.5 / 667.5 50 / 50 Zosyn 3.375 GM Premix 50 ML @ 100 / 100 150 / 150 50 / 50 100 mls/hr IV.SIG Q6H DONNA Rx#: [id number] Vancomycin Inj 1,750 MG In NS 517.5 / 517.5 Inj 500 ML @ 250 mls/hr IV.SIG Q24H DONNA Rx#:[id number] Oral 760 / 760 Other: # Voids 2 # Urine Diapers 5 Date of Last Bowel Movement 01/09/18 01/09/18 01/10/18 # Bowel Movements 1 01/10/18 15:07 Fluid - Other Gram Stain - Pending 01/10/18 15:07 Fluid - Other Body Fluid Culture - Pending Lab - Chemistry Results 01/09/18 01/10/18 05:05 02:32 BUN 8 11 Creatinine 0.95 1.12 H Estimated GFR 58 L 48 L Imaging: ITS Impressions Chest X-Ray 01/02/18 18:17 CONCLUSION: Mild cardiomegaly with probable basilar atelectasis. Surgical clips left axilla. No significant effusion. Venous Doppler Study 01/02/18 18:20 CONCLUSION: 1. The study is negative for upper extremity deep venous thrombosis. 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 Humerus CT 01/03/18 00:00 Humerus is unremarkable. CONCLUSION: 1. I don't see a defined fluid collection to suggest a deep space abscess. 2. Ultrasound could be used to follow. Soft Tissue Neck CT 01/03/18 00:00 CONCLUSION: 1. Enlargement of the left strap muscles suggestive of injury and possible hematoma. Diffuse subcutaneous edema is also noted surrounding the strap muscles particularly on the left. Shoulder MRI 01/07/18 00:00 CONCLUSION: 1. Severe diffuse rotator cuff tendinosis similar to prior exam with partial thickness tear measuring up to about 15 mm in diameter. 2. Severe chronic osteoarthritis with presumably reactive effusion and synovitis that enhances postcontrast. Synovial debris and small osteochondral bodies in the axillary recess. 3. Mild subacromial and subdeltoid and subcoracoid bursitis. 4. Severe degenerative change at the AC joint. Neck MRI 01/08/18 06:58 CONCLUSION: 1. Persistent severe inflammation would likely cellulitis in the inferior neck , greatest on the left. There are 2 rim-enhancing fluid like collection suspicious for abscesses. The more superior is located anterior to the left thyroid cartilage and measures 1.8 x 1.3 cm compared to 1.6 x 1.2 cm previously suggesting mild enlargement. The more inferior and abuts the sternoclavicular joint and measures 2.8 x 1.8 cm compared to 2.3 x 1.7 cm previously also suggesting mild enlargement. 2. The abnormal inflammatory change extends into the visualized superior mediastinum. At some point it would be reasonable to further evaluate the entire chest for full extent of disease. 3. There is abnormal signal and enhancement within the superior aspect of the sternum, medial left clavicle, and surrounding the left sternoclavicular joint concerning for osteomyelitis and potentially septic joint. 4. There is a single enlarged left supraclavicular lymph node that has actually slightly decreased in size since the study from 5 days ago. Chest MRI 01/09/18 00:00 CONCLUSION: 1. Probable septic arthritis and osteomyelitis at the left sternoclavicular joint and to a lesser extent on the right side. Previous superior mediastinal abscess appears slightly decreased in size. Extensive cellulitis in the upper anterior chest remains. Exam degraded by motion artifact. Physical Exam: GENERAL: awake and alert, NAD SKIN: Warm and dry. No generalized rash EYES: Vivian conjunctiva. No petechia or hemorrhage. No scleral icterus. No injection or drainage. EARS, NOSE AND THROAT: Nose without bleeding or purulent nasal discharge. No sinus tenderness. Mucous membranes pink and moist. No oral lesions noted. NECK: Has tenderness in neck. Area of swelling and induration of anterior neck that extends to the left side of her neck looks much improved, induration is smaller. Has improving erythema to supraclavicular area, less tenderness, no fluctuance, looks better, still indurated. The sternal area below the swelling on her neck very tender to touch and with some induration, looks same. BREAST: Looks ok with no induration on breast CARDIOVASCULAR: Regular rate and rhythm. No murmurs, rubs or gallops heard RESPIRATORY: Clear to auscultation. ABDOMEN: Soft, non-tender, nondistended. Bowel sounds present and normoactive. No guarding. No rebound. No organomegaly. EXTREMITIES: No clubbing, cyanosis. Her LUE is larger compared to her RUE, and erythema almost resolved. L shoulder less tender to palpation, pain with movement. She complains of pain under her L armpit when her LUE gets moved passively, still present and unchanged. No calf tenderness. NEUROLOGICAL: Grossly within normal limits. PSYCHIATRIC: Normal affect, calm and cooperative. LINE: No evidence of infection Assessment and Plan - Plan Impression LUE cellulitis, almost resolved Cellulitis L neck, anterior chest, etiology? - early abscess, size slight increase in size, but overall appearance looks much improved - better Hx lymphedema LUE from prior axilary LN dissection Hx GBS sepsis and R psoas abscess 2014 Recommendation Continue Vanco Continue Zosyn Monitor progress Follow new C/S Dr Juares covering this weekend D/W Dr Rendon
[2018-01-11] MEDS: Piperacil/Tazo 3.375 GM Premix 50 ML IV.SIG SCH ×5 (01:17→18:24)
[2018-01-11] MEDS: Levothyroxine 112 MCG Tablet PO SCH (06:12)
[2018-01-11] MEDS: Lidocaine 5% Patch T-DERMAL SCH (08:50)
[2018-01-11] MEDS: Heparin - SQ 10,000 UNITS/ML Vial SQ SCH ×2 (08:51→20:09)
[2018-01-11] MEDS: Anastrozole 1 MG Tablet PO SCH (08:51)
[2018-01-11] MEDS: Metoprolol Tartrate 50 MG Tablet PO SCH ×2 (08:51→20:09)
[2018-01-11] MEDS: Gabapentin 300 MG Capsule PO SCH ×3 (08:53→17:34)
[2018-01-11] MEDS: Digoxin 125 MCG Tablet PO SCH (08:53)
[2018-01-11] MEDS: ALPRAZolam 0.25 MG Tablet PO SCH ×2 (08:54→20:09)
[2018-01-11] MEDS: Pantoprazole Sodium 20 MG DR Tablet PO SCH (08:54)
[2018-01-11] MEDS: Furosemide 40 MG Tablet PO SCH (08:55)
--- NOTE | 2018-01-11 13:06 | P.PNIM ---
Subjective Interval history: No new complaints. Pt remains tender with palpation of anterior neck, anterior left chest, and left shoulder. Physical Exam Vital signs: 01/11/18 08:00 01/11/18 12:00 Temperature 98.0 F 97.7 F Pulse Rate 68 70 Respiratory Rate 17 18 Blood Pressure 140/88 130/69 Pulse Oximetry 92 L 97 Narrative: General: NAD, AAOx3 Skin: Chronic lymphedema left upper extremity.Erythema has improved Cardiac: Regular rate and rhythm. No significant murmurs appreciated. Chest: CTA bilaterally. Abd: +BS, soft, non-tender, nondistended. Ext: Lymphedema left upper extremity. Results - Labs CBC & Chem 7: 01/07/18 05:12 01/11/18 05:26 Microbiology 01/10/18 15:07 Fluid - Other Gram Stain - Final 01/10/18 15:07 Fluid - Other Body Fluid Culture - Preliminary No growth in 24 hours Assessment and Plan - Assessment (1) Cellulitis Code(s): L03.90 - Cellulitis, unspecified Status: Acute Plan: Cellulitis, LUE/shoulder/neck Lymphedema LUE Ant neck/mediastinum abscess. airway compromise - Pt is a 72 y/o female with chronic left upper extremity lymphedema s/p left breast lumpectomy and axillary node surgery - [place] [facility] [place] with left arm pain and redness. The patient states that the pain started three days prior to arrival in the ED. The patient states that the pain is localized to the left shoulder down to the left hand but also involves some spasm of her left neck. - She has visited her primary care physician twice regarding this and has been given Rocephin injection 2 as an outpatient and was started on Bactrim 1 day prior to arrival per record review. The arm swelling, pain and redness have increased despite these interventions. - LUE US was negative for DVT - Blood cultures (01/02) with NGTD - Venous Doppler Study (01/02/18): 1. The study is negative for upper extremity deep venous thrombosis. - Humerus CT (01/03/18): - Humerus is unremarkable. - I don't see a defined fluid collection to suggest a deep space abscess. - Neck MRI (01/03/18): 1. Extensive cellulitis of the lower anterior neck extending into the anterior chest wall and upper mediastinum. Probable 14 mm abscess in the left anterior neck near the level of the glottis and additional developing abscess in the upper anterior mediastinum measuring 2 cm in diameter with a sinus tract extending to the more superior abscess collection. Questionable early osteomyelitis of the manubrium. - Soft Tissue Neck CT (01/03/18) 1. Enlargement of the left strap muscles suggestive of injury and possible hematoma. Diffuse subcutaneous edema is also noted surrounding the strap muscles particularly on the left. - Shoulder MRI 01/07/18 00:00 1. Severe diffuse rotator cuff tendinosis similar to prior exam with partial thickness tear measuring up to about 15 mm in diameter. 2. Severe chronic osteoarthritis with presumably reactive effusion and synovitis that enhances postcontrast. Synovial debris and small osteochondral bodies in the axillary recess. 3. Mild subacromial and subdeltoid and subcoracoid bursitis. 4. Severe degenerative change at the AC joint. - Neck MRI 01/08/18 06:58 1. Persistent severe inflammation would likely cellulitis in the inferior neck , greatest on the left. There are 2 rim-enhancing fluid like collection suspicious for abscesses. The more superior is located anterior to the left thyroid cartilage and measures 1.8 x 1.3 cm compared to 1.6 x 1.2 cm previously suggesting mild enlargement. The more inferior and abuts the sternoclavicular joint and measures 2.8 x 1.8 cm compared to 2.3 x 1.7 cm previously also suggesting mild enlargement. 2. The abnormal inflammatory change extends into the visualized superior mediastinum. At some point it would be reasonable to further evaluate the entire chest for full extent of disease. 3. There is abnormal signal and enhancement within the superior aspect of the sternum, medial left clavicle, and surrounding the left sternoclavicular joint concerning for osteomyelitis and potentially septic joint. 4. There is a single enlarged left supraclavicular lymph node that has actually slightly decreased in size since the study from 5 days ago. - Chest MRI 01/09/18 00:00 1. Probable septic arthritis and osteomyelitis at the left sternoclavicular joint and to a lesser extent on the right side. Previous superior mediastinal abscess appears slightly decreased in size. Extensive cellulitis in the upper anterior chest remains. Exam degraded by motion artifact. - Pt was having more difficulty speaking and swallowing 01/04 - Spoke with Beater Worker Helper and CTS and pt was moved to ICU for closer monitoring on 01/04 - Vancomycin (01/02 - present) - Zosyn (01/02 - present) - Clindamycin (01/04 - 01/06) - We are unable to give iv Decadron as pt reports severe allergy. - Continue liquid diet per ST - Eliquis on hold and sq heparin given. - Resume Eliquis if no intervention required on neck - Case d/w IR, Drs. Harvey and Oli Gar. MRI shows insuffient fluid collection for drainage catheters, but will use US guidance to obtain aspirate to send to lab for gram stain and culture - only small amount of fluid obtain with US guided aspiration (01/10). - neck aspirated gram stain (01/10) --> No WBCs, no organisms - neck aspirate C&S (01/10) --> NGTD - Follow microbiology - Case d/w Dr. Pritchard (01/10). Will continue current antibiotic treatment thru Saturday 01/13 & then reasses. - will d/w CVS 01/13/18. Appreciate input from ENT. Baltazar fib - Cont. home meds HTN - Home meds continued - Monitor Hypothyroidism - Continue home medication. (2) Lymphedema Code(s): I89.0 - Lymphedema, not elsewhere classified Status: Chronic (3) Hypothyroidism Code(s): E03.9 - Hypothyroidism, unspecified Status: Chronic (4) Hypertension Code(s): I10 - Essential (primary) hypertension Status: Chronic (5) GERD (gastroesophageal reflux disease) Code(s): K21.9 - Gastro-esophageal reflux disease without esophagitis Status: Acute (6) Atrial fibrillation Code(s): I48.91 - Unspecified atrial fibrillation Status: Chronic (1) Cellulitis Qualifiers: Site of cellulitis: extremity Site of cellulitis of extremity: upper extremity Laterality: left Qualified Code(s): L03.114 - Cellulitis of left upper limb
[2018-01-11] MEDS: Vancomycin Inj 1,750 MG in Sodium Chlor 0.9% Inj 500 ML IV.SIG SCH (15:41)
[2018-01-12] MEDS: Piperacil/Tazo 3.375 GM Premix 50 ML IV.SIG SCH ×5 (01:16→18:22)
[2018-01-12] MEDS: HYDROmorphone PF Inj 2 MG/ML Vial IV.PUSH PRN ×5 (01:17→23:29)
[2018-01-12] MEDS: Levothyroxine 112 MCG Tablet PO SCH (06:24)
[2018-01-12] MEDS: Metoprolol Tartrate 50 MG Tablet PO SCH ×2 (08:31→21:59)
[2018-01-12] MEDS: Heparin - SQ 10,000 UNITS/ML Vial SQ SCH ×2 (08:31→21:59)
[2018-01-12] MEDS: Lidocaine 5% Patch T-DERMAL SCH (08:31)
[2018-01-12] MEDS: Digoxin 125 MCG Tablet PO SCH (08:32)
[2018-01-12] MEDS: Gabapentin 300 MG Capsule PO SCH ×3 (08:32→17:47)
[2018-01-12] MEDS: Anastrozole 1 MG Tablet PO SCH (08:32)
[2018-01-12] MEDS: Pantoprazole Sodium 20 MG DR Tablet PO SCH (08:32)
[2018-01-12] MEDS: Furosemide 40 MG Tablet PO SCH (08:32)
[2018-01-12] MEDS: ALPRAZolam 0.25 MG Tablet PO SCH ×2 (08:33→21:59)
--- NOTE | 2018-01-12 11:41 | P.PNIM ---
Subjective Interval history: No new complaints. Remains tender on palpation at anterior neck, anterior, upper left chest wall, and left shoulder. Pt now c/o marked pain at left posterior upper back with radiation to neck - left trapezius muscle. Pt has tenderness on palpation over left trapezius. Physical Exam Vital signs: 01/12/18 02:26 01/12/18 08:00 Temperature 98.0 F Pulse Rate 62 Respiratory Rate 17 19 Blood Pressure 140/64 Pulse Oximetry 95 Narrative: General: NAD, AAOx3 Skin: Chronic lymphedema left upper extremity.Erythema has improved Cardiac: Regular rate and rhythm. No significant murmurs appreciated. Chest: CTA bilaterally. Abd: +BS, soft, non-tender, nondistended. Ext: Lymphedema left upper extremity. MS: tender on palpation over left trapezius muscle. Pt also tender on palpation at left anterior neck, left upper anterior chest, and left shoulder. Results - Labs CBC & Chem 7: 01/07/18 05:12 01/12/18 03:57 Microbiology 01/10/18 15:07 Fluid - Other Gram Stain - Final 01/10/18 15:07 Fluid - Other Body Fluid Culture - Preliminary No growth in 48 hours Assessment and Plan - Assessment (1) Cellulitis Code(s): L03.90 - Cellulitis, unspecified Status: Acute Plan: Cellulitis, LUE/shoulder/neck Lymphedema LUE Ant neck/mediastinum abscess. airway compromise - Pt is a 72 y/o female with chronic left upper extremity lymphedema s/p left breast lumpectomy and axillary node surgery - Pt presented to the ED at [facility] [place] on 01/02/18 with left arm pain and redness. The patient states that the pain started three days prior to arrival in the ED. The patient states that the pain is localized to the left shoulder down to the left hand but also involves some spasm of her left neck. - She has visited her primary care physician twice regarding this and has been given Rocephin injection 2 as an outpatient and was started on Bactrim 1 day prior to arrival per record review. The arm swelling, pain and redness have increased despite these interventions. - LUE US was negative for DVT - Blood cultures (01/02) with NGTD - Venous Doppler Study (01/02/18): 1. The study is negative for upper extremity deep venous thrombosis. - Humerus CT (01/03/18): - Humerus is unremarkable. - I don't see a defined fluid collection to suggest a deep space abscess. - Neck MRI (01/03/18): 1. Extensive cellulitis of the lower anterior neck extending into the anterior chest wall and upper mediastinum. Probable 14 mm abscess in the left anterior neck near the level of the glottis and additional developing abscess in the upper anterior mediastinum measuring 2 cm in diameter with a sinus tract extending to the more superior abscess collection. Questionable early osteomyelitis of the manubrium. - Soft Tissue Neck CT (01/03/18) 1. Enlargement of the left strap muscles suggestive of injury and possible hematoma. Diffuse subcutaneous edema is also noted surrounding the strap muscles particularly on the left. - Shoulder MRI 01/07/18 00:00 1. Severe diffuse rotator cuff tendinosis similar to prior exam with partial thickness tear measuring up to about 15 mm in diameter. 2. Severe chronic osteoarthritis with presumably reactive effusion and synovitis that enhances postcontrast. Synovial debris and small osteochondral bodies in the axillary recess. 3. Mild subacromial and subdeltoid and subcoracoid bursitis. 4. Severe degenerative change at the AC joint. - Neck MRI 01/08/18 06:58 1. Persistent severe inflammation would likely cellulitis in the inferior neck , greatest on the left. There are 2 rim-enhancing fluid like collection suspicious for abscesses. The more superior is located anterior to the left thyroid cartilage and measures 1.8 x 1.3 cm compared to 1.6 x 1.2 cm previously suggesting mild enlargement. The more inferior and abuts the sternoclavicular joint and measures 2.8 x 1.8 cm compared to 2.3 x 1.7 cm previously also suggesting mild enlargement. 2. The abnormal inflammatory change extends into the visualized superior mediastinum. At some point it would be reasonable to further evaluate the entire chest for full extent of disease. 3. There is abnormal signal and enhancement within the superior aspect of the sternum, medial left clavicle, and surrounding the left sternoclavicular joint concerning for osteomyelitis and potentially septic joint. 4. There is a single enlarged left supraclavicular lymph node that has actually slightly decreased in size since the study from 5 days ago. - Chest MRI 01/09/18 00:00 1. Probable septic arthritis and osteomyelitis at the left sternoclavicular joint and to a lesser extent on the right side. Previous superior mediastinal abscess appears slightly decreased in size. Extensive cellulitis in the upper anterior chest remains. Exam degraded by motion artifact. - Pt was having more difficulty speaking and swallowing 01/04 - Spoke with Quality Improvement Coordinator (Rn) and CTS and pt was moved to ICU for closer monitoring on 01/04 - Vancomycin (01/02 - present) - Zosyn (01/02 - present) - Clindamycin (01/04 - 01/06) - We are unable to give iv Decadron as pt reports severe allergy. - Continue liquid diet per ST - Eliquis on hold and sq heparin given. - Resume Eliquis if no intervention required on neck - Case d/w IR, Drs. Harvey and Oli Gar. MRI shows insuffient fluid collection for drainage catheters, but will use US guidance to obtain aspirate to send to lab for gram stain and culture - only small amount of fluid obtain with US guided aspiration (01/10). - neck aspirated gram stain (01/10) --> No WBCs, no organisms - neck aspirate C&S (01/10) --> NO growth - Case d/w Dr. Pritchard (01/10). Will continue current antibiotic treatment thru Saturday 01/13 & then reasses. - will d/w CVS 01/13/18. Appreciate input from ENT. 01/12/18 - Pt interviewed and examined - continue current treatment plan as outlined above - will d/w ID and CVS Saturday 01/13 - trial of flexeril & k-thermia pad for left trapezius tenderness - obtain 12 lead EKG for baseline - consider Orthopedic consult 01/13 to evaluate left rotator cuff tear and give recommendations - reconsult PT - consult OT Giovanny peterson - Cont. home meds HTN - Home meds continued - Monitor Hypothyroidism - Continue home medication. (2) Lymphedema Code(s): I89.0 - Lymphedema, not elsewhere classified Status: Chronic (3) Hypothyroidism Code(s): E03.9 - Hypothyroidism, unspecified Status: Chronic (4) Hypertension Code(s): I10 - Essential (primary) hypertension Status: Chronic (5) GERD (gastroesophageal reflux disease) Code(s): K21.9 - Gastro-esophageal reflux disease without esophagitis Status: Acute (6) Atrial fibrillation Code(s): I48.91 - Unspecified atrial fibrillation Status: Chronic (1) Cellulitis Qualifiers: Site of cellulitis: extremity Site of cellulitis of extremity: upper extremity Laterality: left Qualified Code(s): L03.114 - Cellulitis of left upper limb
[2018-01-12] MEDS ORDERED: Pharmacy Ordered Lab Info OTHER ONE (15:45)
[2018-01-12] MEDS: Vancomycin Inj 1,750 MG in Sodium Chlor 0.9% Inj 500 ML IV.SIG SCH (16:10)
[2018-01-13] MEDS: Piperacil/Tazo 3.375 GM Premix 50 ML IV.SIG SCH ×3 (00:55→12:13)
[2018-01-13] MEDS: HYDROmorphone PF Inj 2 MG/ML Vial IV.PUSH PRN (04:02)
[2018-01-13] MEDS: Levothyroxine 112 MCG Tablet PO SCH (05:44)
[2018-01-13 06:20] LABS: Baso # (Auto) 0.1 th/mm3 (0.0-0.2); Baso % (Auto) 0.9 % (0.0-2.0); Eos # (Auto) 0.4 th/mm3 (0.0-0.4); Eos % (Auto) 4.8 % (0.0-4.0); Hematocrit 31.9 % (35.0-46.0); Hemoglobin 10.6 gm/dL (11.6-15.3); Lymph # (Auto) 1.3 th/mm3 (1.0-4.8); Lymph % (Auto) 17.3 % (9.0-44.0); Mean Corpuscular HGB Conc 33.1 % (32.0-36.0); Mean Corpuscular Hemoglobin 28.5 pg (27.0-34.0); Mean Corpuscular Volume 86.2 fL (80.0-100.0); Mean Platelet Volume 7.3 fL (7.0-11.0); Mono # (Auto) 1.2 th/mm3 (0.0-0.9); Mono % (Auto) 15.7 % (0.0-8.0); Neut # (Auto) 4.8 th/mm3 (1.8-7.7); Neut % (Auto) 61.3 % (16.0-70.0); Platelet Count 339 th/mm3 (150-450); Red Blood Count 3.71 mil/mm3 (4.00-5.30); White Blood Count 7.8 th/mm3 (4.0-11.0)
[2018-01-13 06:42] LABS: Calcium 9.3 mg/dL (8.5-10.1); Carbon Dioxide 30.5 meq/L (21.0-32.0); Potassium 3.5 meq/L (3.5-5.1)
--- NOTE | 2018-01-13 08:53 | P.PNIM ---
Subjective Interval history: Follow up: Cellulitis, LUE/shoulder/neck, Lymphedema LUE and Ant neck/ mediastinum abscess Patient reports feeling a little less painful today. Patient reports shooting pain from anterior neck Physical Exam Vital signs: Vital Signs 01/12/18 12:00 01/12/18 16:00 01/12/18 19:59 Temperature 97.5 F L 98.2 F 97.6 F Pulse Rate 60 61 67 Respiratory Rate 18 17 17 Blood Pressure 118/63 129/58 L 141/72 H Pulse Oximetry 95 95 96 01/12/18 20:05 01/12/18 22:30 01/12/18 23:59 Temperature Pulse Rate Respiratory Rate 18 18 17 Blood Pressure Pulse Oximetry 01/13/18 00:00 01/13/18 03:36 01/13/18 04:32 Temperature 97.9 F Pulse Rate 71 Respiratory Rate 17 20 18 Blood Pressure 126/78 Pulse Oximetry 93 L 01/13/18 08:00 Temperature 98.4 F Pulse Rate 56 L Respiratory Rate 16 Blood Pressure 135/72 Pulse Oximetry 96 Intake & Output 01/12/18 01/13/18 01/13/18 18:59 06:59 18:59 Intake Total 1517.5 / 1517.5 880 / 880 50 / 50 Balance 1517.5 / 1517.5 880 / 880 50 / 50 Weight 113 kg Intake: IV 617.5 / 617.5 100 / 100 50 / 50 Zosyn 3.375 GM Premix 50 ML @ 100 / 100 100 / 100 50 / 50 100 mls/hr IV.SIG Q6H DONNA Rx#: [id number] Vancomycin Inj 1,750 MG In NS 517.5 / 517.5 Inj 500 ML @ 250 mls/hr IV.SIG Q24H DONNA Rx#:[id number] Oral 900 / 900 780 / 780 Other: # Voids 6 2 Date of Last Bowel Movement 01/12/18 # Bowel Movements 2 2 Narrative: General: NAD, AAOx3 Skin: Chronic lymphedema left upper extremity.Erythema has improved Cardiac: Regular rate and rhythm. Chest: CTA bilaterally. Abd: +BS, soft, non-tender, nondistended. Ext: Lymphedema left upper extremity. MS: tender on palpation at left anterior neck, left upper anterior chest, and left shoulder with light touch Results - Labs CBC & Chem 7: 10/01/18 05:29 01/13/18 05:29 Laboratory Results - last 24 hr 01/12/18 01/13/18 01/13/18 16:00 05:29 05:29 WBC 7.8 RBC 3.71 L Hgb 10.6 L Hct 31.9 L MCV 86.2 MCH 28.5 MCHC 33.1 RDW 15.0 Plt Count 339 MPV 7.3 Neut % (Auto) 61.3 Lymph % (Auto) 17.3 Linn % (Auto) 15.7 H Eos % (Auto) 4.8 H Baso % (Auto) 0.9 Neut # (Auto) 4.8 Lymph # (Auto) 1.3 Linn # (Auto) 1.2 H Eos # (Auto) 0.4 Baso # (Auto) 0.1 WBC Differential . Differential Comment Auto diff final Sodium 140 Potassium 3.5 Chloride 102 Carbon Dioxide 30.5 Anion Gap 8 BUN 12 Creatinine 1.08 H Estimated GFR 50 L Random Glucose 112 H Calcium 9.3 Vancomycin Trough 19.1 H Microbiology 01/10/18 15:07 Fluid - Other Gram Stain - Final 01/10/18 15:07 Fluid - Other Body Fluid Culture - Preliminary No growth in 48 hours Assessment and Plan - Assessment (1) Cellulitis Code(s): L03.90 - Cellulitis, unspecified Status: Acute Plan: Cellulitis, LUE/shoulder/neck Lymphedema LUE Ant neck/mediastinum abscess. airway compromise - Pt is a 72 y/o female with chronic left upper extremity lymphedema s/p left breast lumpectomy and axillary node surgery - [place] [facility] [place] with left arm pain and redness. The patient states that the pain started three days prior to arrival in the ED. The patient states that the pain is localized to the left shoulder down to the left hand but also involves some spasm of her left neck. - She has visited her primary care physician twice regarding this and has been given Rocephin injection 2 as an outpatient and was started on Bactrim 1 day prior to arrival per record review. The arm swelling, pain and redness have increased despite these interventions. - LUE US was negative for DVT - Blood cultures (01/02) with NGTD - Venous Doppler Study (01/02/18): 1. The study is negative for upper extremity deep venous thrombosis. - Humerus CT (01/03/18): - Humerus is unremarkable. - I don't see a defined fluid collection to suggest a deep space abscess. - Neck MRI (01/03/18): 1. Extensive cellulitis of the lower anterior neck extending into the anterior chest wall and upper mediastinum. Probable 14 mm abscess in the left anterior neck near the level of the glottis and additional developing abscess in the upper anterior mediastinum measuring 2 cm in diameter with a sinus tract extending to the more superior abscess collection. Questionable early osteomyelitis of the manubrium. - Soft Tissue Neck CT (01/03/18) 1. Enlargement of the left strap muscles suggestive of injury and possible hematoma. Diffuse subcutaneous edema is also noted surrounding the strap muscles particularly on the left. - Shoulder MRI 01/07/18 00:00 1. Severe diffuse rotator cuff tendinosis similar to prior exam with partial thickness tear measuring up to about 15 mm in diameter. 2. Severe chronic osteoarthritis with presumably reactive effusion and synovitis that enhances postcontrast. Synovial debris and small osteochondral bodies in the axillary recess. 3. Mild subacromial and subdeltoid and subcoracoid bursitis. 4. Severe degenerative change at the AC joint. - Neck MRI 01/08/18 06:58 1. Persistent severe inflammation would likely cellulitis in the inferior neck , greatest on the left. There are 2 rim-enhancing fluid like collection suspicious for abscesses. The more superior is located anterior to the left thyroid cartilage and measures 1.8 x 1.3 cm compared to 1.6 x 1.2 cm previously suggesting mild enlargement. The more inferior and abuts the sternoclavicular joint and measures 2.8 x 1.8 cm compared to 2.3 x 1.7 cm previously also suggesting mild enlargement. 2. The abnormal inflammatory change extends into the visualized superior mediastinum. At some point it would be reasonable to further evaluate the entire chest for full extent of disease. 3. There is abnormal signal and enhancement within the superior aspect of the sternum, medial left clavicle, and surrounding the left sternoclavicular joint concerning for osteomyelitis and potentially septic joint. 4. There is a single enlarged left supraclavicular lymph node that has actually slightly decreased in size since the study from 5 days ago. - Chest MRI 01/09/18 00:00 1. Probable septic arthritis and osteomyelitis at the left sternoclavicular joint and to a lesser extent on the right side. Previous superior mediastinal abscess appears slightly decreased in size. Extensive cellulitis in the upper anterior chest remains. Exam degraded by motion artifact. - Pt was having more difficulty speaking and swallowing 01/04 - Spoke with Morphology Teacher and CTS and pt was moved to ICU for closer monitoring on 01/04 - Vancomycin (01/02 - present) - Zosyn (01/02 - present) - Clindamycin (01/04 - 01/06) - We are unable to give iv Decadron as pt reports severe allergy. - Continue liquid diet per ST - Eliquis on hold and sq heparin given. - Resume Eliquis if no intervention required on neck - Case d/w IR, Drs. Harvey and Oli Gar. MRI shows insuffient fluid collection for drainage catheters, but will use US guidance to obtain aspirate to send to lab for gram stain and culture - only small amount of fluid obtain with US guided aspiration (01/10). - neck aspirated gram stain (01/10) --> No WBCs, no organisms - neck aspirate C&S (01/10) --> NO growth - Case d/w Dr. Pritchard (01/10). Will continue current antibiotic treatment thru Saturday 01/13 & then reasses. - will d/w CVS 01/13/18. Appreciate input from ENT. 01/12/18 - Pt interviewed and examined - continue current treatment plan as outlined above - will d/w ID and CVS Saturday 01/13 - trial of flexeril & k-thermia pad for left trapezius tenderness - obtain 12 lead EKG for baseline - consider Orthopedic consult 01/13 to evaluate left rotator cuff tear and give recommendations - reconsult PT - consult OT 01/14/18 - schedule Flexeril x 48 hours - add Lactinex A. fib - Cont. home meds HTN - Home meds continued - Monitor Hypothyroidism - Continue home medication. The exam, history, and the medical decision-making described in the above note were completed with the assistance of the mid-level provider. I reviewed and agree with the findings presented. I attest that I had a [id number] encounter with the patient on the same day, and personally performed and documented my assessment and findings in the medical record. (2) Lymphedema Code(s): I89.0 - Lymphedema, not elsewhere classified Status: Chronic (3) Hypothyroidism Code(s): E03.9 - Hypothyroidism, unspecified Status: Chronic (4) Hypertension Code(s): I10 - Essential (primary) hypertension Status: Chronic (5) GERD (gastroesophageal reflux disease) Code(s): K21.9 - Gastro-esophageal reflux disease without esophagitis Status: Acute (6) Atrial fibrillation Code(s): I48.91 - Unspecified atrial fibrillation Status: Chronic (1) Cellulitis Qualifiers: Site of cellulitis: extremity Site of cellulitis of extremity: upper extremity Laterality: left Qualified Code(s): L03.114 - Cellulitis of left upper limb
[2018-01-13] MEDS: Lidocaine 5% Patch T-DERMAL SCH (09:11)
[2018-01-13] MEDS: Heparin - SQ 10,000 UNITS/ML Vial SQ SCH ×2 (09:13→21:05)
[2018-01-13] MEDS: Anastrozole 1 MG Tablet PO SCH (09:13)
[2018-01-13] MEDS: Gabapentin 300 MG Capsule PO SCH ×3 (09:13→18:03)
[2018-01-13] MEDS: Metoprolol Tartrate 50 MG Tablet PO SCH ×2 (09:13→21:05)
[2018-01-13] MEDS: ALPRAZolam 0.25 MG Tablet PO SCH ×2 (09:13→21:05)
[2018-01-13] MEDS: Digoxin 125 MCG Tablet PO SCH (09:13)
[2018-01-13] MEDS: Pantoprazole Sodium 20 MG DR Tablet PO SCH (09:13)
[2018-01-13] MEDS: Furosemide 40 MG Tablet PO SCH (09:13)
[2018-01-13] MEDS: Lactobacillus Acidophilus/L. Spores Tablet PO SCH ×2 (09:21→21:05)
--- NOTE | 2018-01-13 12:35 | P.PNID ---
Subjective Remarks: Patient is a 72-year-old female presented to the hospital complaining of pain, swelling, and redness in her left upper extremity as well as in her neck and left chest. Her problems started December 30 when she started experiencing swelling and pain in her left upper extremity. It progressed to spreading of the pain and swelling to her left neck and left shoulder as well as left anterior chest. She was seen by her primary care physician, and she was given a shot of antibiotics and was given oral antibiotics. She was also seen by her orthopedic doctor at that time because she wanted her left shoulder evaluated. According to the patient both physician told her to go to the hospital for further evaluation and treatment. She denies any sore throat. She has not had any coughing. She apparently had some episodes of nausea and dry heaving when she started having the problem. She denies having any kind of injury or insect bite to her left upper extremity. Patient stated that she has known arthritis on her left shoulder, and has [id number] problem. Patient has had previous lumpectomy and lymph node dissection for left breast cancer back in 2013. She has had problem with cellulitis in the left upper extremity. She can remember the last time she had an infection. She has chronic lymphedema in that arm. Since admission she has not been febrile. Her white count is normal. She has had imaging studies done and there was no evidence of DVT in the left upper extremity. She has evidence of edema on her neck with some extension into the upper mediastinum. There also describing 2 small fluid collections. Today patient had noted pain when she swallows, but she points mostly to her left chest area when she swallows. She has been transferred to the ICU for further closer monitoring. Infectious disease consultation has been requested to assist with evaluation and treatment. 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 History of hip replacement, total History of lumpectomy of left breast History of lymph node dissection of left axilla History of total abdominal hysterectomy and bilateral salpingo-oophorectomy Hx of total knee replacement Allergies/Adverse Reactions: Allergies amlodipine Allergy (Mild, Verified 01/02/18 17:30) UNKNOWN lisinopril Allergy (Mild, Verified 01/02/18 17:30) UNKNOWN nifedipine Allergy (Mild, Verified 01/02/18 17:30) UNKNOWN NSAIDS (Non-Steroidal Anti-Inflamma Allergy (Mild, Verified 01/02/18 17:30) Hives morphine Adverse Reaction (Mild, Verified 01/02/18 17:28) Nausea/Vomiting STEROIDS Allergy (Severe, Uncoded 01/02/18 17:28) Anaphylaxis Objective Vital Signs 01/12/18 16:00 01/12/18 19:59 01/12/18 20:05 Temperature 98.2 F 97.6 F Pulse Rate 61 67 Respiratory Rate 17 17 18 Blood Pressure 129/58 L 141/72 H Pulse Oximetry 95 96 01/12/18 22:30 01/12/18 23:59 01/13/18 00:00 Temperature 97.9 F Pulse Rate 71 Respiratory Rate 18 17 17 Blood Pressure 126/78 Pulse Oximetry 93 L 01/13/18 03:36 01/13/18 04:32 01/13/18 08:00 Temperature 98.4 F Pulse Rate 56 L Respiratory Rate 20 18 16 Blood Pressure 135/72 Pulse Oximetry 96 01/13/18 12:00 Temperature 97.8 F Pulse Rate 64 Respiratory Rate 14 Blood Pressure 127/60 Pulse Oximetry 97 Intake & Output 01/12/18 01/13/18 01/13/18 18:59 06:59 18:59 Intake Total 1517.5 / 1517.5 880 / 880 50 / 50 Balance 1517.5 / 1517.5 880 / 880 50 / 50 Weight 113 kg Intake: IV 617.5 / 617.5 100 / 100 50 / 50 Zosyn 3.375 GM Premix 50 ML @ 100 / 100 100 / 100 50 / 50 100 mls/hr IV.SIG Q6H DONNA Rx#: [id number] Vancomycin Inj 1,750 MG In NS 517.5 / 517.5 Inj 500 ML @ 250 mls/hr IV.SIG Q24H DONNA Rx#:[id number] Oral 900 / 900 780 / 780 Other: # Voids 6 2 Date of Last Bowel Movement 01/12/18 # Bowel Movements 2 2 01/10/18 15:07 Fluid - Other Gram Stain - Final 01/10/18 15:07 Fluid - Other Body Fluid Culture - Final No growth in 72 hours (aerobically and anaerobically ) Lab - Hematology Results 01/13/18 05:29 WBC 7.8 RBC 3.71 L Hgb 10.6 L Hct 31.9 L MCV 86.2 MCH 28.5 MCHC 33.1 RDW 15.0 Plt Count 339 MPV 7.3 Neut % (Auto) 61.3 Lymph % (Auto) 17.3 Dyer % (Auto) 15.7 H Eos % (Auto) 4.8 H Baso % (Auto) 0.9 Neut # (Auto) 4.8 Lymph # (Auto) 1.3 Dyer # (Auto) 1.2 H Eos # (Auto) 0.4 Baso # (Auto) 0.1 WBC Differential . Differential Comment Auto diff final Lab - Chemistry Results 01/12/18 01/13/18 03:57 05:29 Sodium 140 Potassium 3.5 Chloride 102 Carbon Dioxide 30.5 Anion Gap 8 BUN 12 12 Creatinine 1.20 H 1.08 H Estimated GFR 44 L 50 L Random Glucose 112 H Calcium 9.3 Imaging: ITS Impressions Chest X-Ray 01/02/18 18:17 CONCLUSION: Mild cardiomegaly with probable basilar atelectasis. Surgical clips left axilla. No significant effusion. Venous Doppler Study 01/02/18 18:20 CONCLUSION: 1. The study is negative for upper extremity deep venous thrombosis. 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 Humerus CT 01/03/18 00:00 Humerus is unremarkable. CONCLUSION: 1. I don't see a defined fluid collection to suggest a deep space abscess. 2. Ultrasound could be used to follow. Soft Tissue Neck CT 01/03/18 00:00 CONCLUSION: 1. Enlargement of the left strap muscles suggestive of injury and possible hematoma. Diffuse subcutaneous edema is also noted surrounding the strap muscles particularly on the left. Shoulder MRI 01/07/18 00:00 CONCLUSION: 1. Severe diffuse rotator cuff tendinosis similar to prior exam with partial thickness tear measuring up to about 15 mm in diameter. 2. Severe chronic osteoarthritis with presumably reactive effusion and synovitis that enhances postcontrast. Synovial debris and small osteochondral bodies in the axillary recess. 3. Mild subacromial and subdeltoid and subcoracoid bursitis. 4. Severe degenerative change at the AC joint. Neck MRI 01/08/18 06:58 CONCLUSION: 1. Persistent severe inflammation would likely cellulitis in the inferior neck , greatest on the left. There are 2 rim-enhancing fluid like collection suspicious for abscesses. The more superior is located anterior to the left thyroid cartilage and measures 1.8 x 1.3 cm compared to 1.6 x 1.2 cm previously suggesting mild enlargement. The more inferior and abuts the sternoclavicular joint and measures 2.8 x 1.8 cm compared to 2.3 x 1.7 cm previously also suggesting mild enlargement. 2. The abnormal inflammatory change extends into the visualized superior mediastinum. At some point it would be reasonable to further evaluate the entire chest for full extent of disease. 3. There is abnormal signal and enhancement within the superior aspect of the sternum, medial left clavicle, and surrounding the left sternoclavicular joint concerning for osteomyelitis and potentially septic joint. 4. There is a single enlarged left supraclavicular lymph node that has actually slightly decreased in size since the study from 5 days ago. Chest MRI 01/09/18 00:00 CONCLUSION: 1. Probable septic arthritis and osteomyelitis at the left sternoclavicular joint and to a lesser extent on the right side. Previous superior mediastinal abscess appears slightly decreased in size. Extensive cellulitis in the upper anterior chest remains. Exam degraded by motion artifact. Physical Exam: GENERAL: awake and alert, NAD SKIN: Warm and dry. No generalized rash EYES: [place] conjunctiva. No petechia or hemorrhage. No scleral icterus. No injection or drainage. EARS, NOSE AND THROAT: Mucous membranes pink and moist. No oral lesions noted. NECK: Has tenderness in neck, less. Area of swelling and induration of anterior neck that extends to the left side of her neck looks much improved, induration is smaller. Has improving erythema to supraclavicular area, less tenderness, no fluctuance, looks better, still indurated. The sternal area below the swelling on her neck very tender to touch and with some induration, looks same. BREAST: Looks ok with no induration on breast CARDIOVASCULAR: Regular rate and rhythm. No murmurs, rubs or gallops heard RESPIRATORY: Clear to auscultation. ABDOMEN: Soft, non-tender, nondistended. Bowel sounds present and normoactive. No guarding. No rebound. No organomegaly. EXTREMITIES: No clubbing, cyanosis. Her LUE is larger compared to her RUE, and erythema almost resolved. L shoulder less tender to palpation, pain with movement. She complains of pain under her L armpit when her LUE gets moved passively, still present and unchanged. No calf tenderness. NEUROLOGICAL: Grossly within normal limits. PSYCHIATRIC: Normal affect, calm and cooperative. LINE: No evidence of infection Assessment and Plan - Plan Impression LUE cellulitis, almost resolved Cellulitis L neck, anterior chest, etiology? - early abscess, size slight increase in size, but overall appearance looks much improved - better Hx lymphedema LUE from prior axilary LN dissection Hx GBS sepsis and R psoas abscess 2015 Recommendation Continue Vanco Stop Zosyn Monitor progress Change Zosyn to Levaquin and Flagyl If stable, consider D/C on IV Vanco and po Abx and complete at least 4 weeks Rx (reCT neck prior to stop ABx) and possibly extend to 6 weeks if still with fluid collection
[2018-01-13] MEDS: metroNIDAZOLE 500 MG Tablet PO SCH ×2 (14:09→21:05)
[2018-01-13] MEDS: levoFLOXacin 750 MG Tablet PO SCH (14:09)
--- NOTE | 2018-01-13 15:00 | ECG ---
Date Performed: 01/12/2018 Time Performed: 13:07:09 PTAGE: 72 years EKG: SINUS BRADYCARDIA MARKED LEFT AXIS DEVIATION LOW QRS VOLTAGE IN PRECORDIAL LEADS PATTERN CO NSISTENT WITH PULMONARY DISEASE INCOMPLETE RIGHT BUNDLE BRANCH BLOCK NONSPECIFIC T-WAVE ABNORMALITY A BNORMAL ECG NO PREVIOUS TRACING DOCTOR: Priscilla Marin Interpretating Date/Time 01/13/2018 14:58:54
[2018-01-13] MEDS: Vancomycin Inj 1,250 MG in Sodium Chlor 0.9% Inj 250 ML IV.SIG SCH (18:04)
[2018-01-14] MEDS: Levothyroxine 112 MCG Tablet PO SCH (06:14)
[2018-01-14] MEDS: metroNIDAZOLE 500 MG Tablet PO SCH ×3 (06:14→21:47)
[2018-01-14] MEDS: Metoprolol Tartrate 50 MG Tablet PO SCH (08:53)
[2018-01-14] MEDS: Furosemide 40 MG Tablet PO SCH (08:53)
[2018-01-14] MEDS: Gabapentin 300 MG Capsule PO SCH ×3 (08:53→17:47)
[2018-01-14] MEDS: levoFLOXacin 750 MG Tablet PO SCH (08:53)
[2018-01-14] MEDS: Lactobacillus Acidophilus/L. Spores Tablet PO SCH ×2 (08:53→21:46)
[2018-01-14] MEDS: Pantoprazole Sodium 20 MG DR Tablet PO SCH (08:53)
[2018-01-14] MEDS: Digoxin 125 MCG Tablet PO SCH (08:53)
[2018-01-14] MEDS: ALPRAZolam 0.25 MG Tablet PO SCH ×2 (08:53→21:47)
[2018-01-14] MEDS: Anastrozole 1 MG Tablet PO SCH (08:54)
[2018-01-14] MEDS: Heparin - SQ 10,000 UNITS/ML Vial SQ SCH ×2 (08:54→21:48)
--- NOTE | 2018-01-14 08:54 | P.PNIM ---
Subjective Interval history: Follow up: Cellulitis, LUE/shoulder/neck, Lymphedema LUE and Ant neck/ mediastinum abscess Patient reports feeling less painful today Asking when she will be discharged Physical Exam Vital signs: Vital Signs 01/13/18 12:00 01/13/18 16:00 01/13/18 20:00 Temperature 97.8 F 97.8 F 99.4 F Pulse Rate 64 65 77 Respiratory Rate 14 16 16 Blood Pressure 127/60 129/60 128/85 Pulse Oximetry 97 96 95 01/13/18 23:25 01/14/18 08:00 Temperature 98.7 F 98.0 F Pulse Rate 71 63 Respiratory Rate 18 18 Blood Pressure 153/82 H 139/67 Pulse Oximetry 94 L 95 Intake & Output 01/13/18 01/14/18 01/14/18 18:59 06:59 18:59 Intake Total 900 / 900 262.5 / 262.5 Balance 900 / 900 262.5 / 262.5 Weight 110 kg Intake: IV 100 / 100 262.5 / 262.5 Zosyn 3.375 GM Premix 50 ML @ 100 / 100 100 mls/hr IV.SIG Q6H DONNA Rx#: [id number] Vancomycin Inj 1,250 MG In NS 262.5 / 262.5 Inj 250 ML @ 250 mls/hr IV.SIG Q24H DONNA Rx#:[id number] Oral 800 / 800 Other: # Voids 3 1 Narrative: General: NAD, AAOx3 Skin: Chronic lymphedema left upper extremity.Erythema has improved Cardiac: Regular rate and rhythm. Chest: CTA bilaterally. Abd: +BS, soft, non-tender, nondistended. Ext: Lymphedema left upper extremity. MS: tender on palpation at left anterior neck, left upper anterior chest, and left shoulder with light touch Results - Labs CBC & Chem 7: 01/13/18 05:29 01/14/18 06:35 Laboratory Results - last 24 hr 01/14/18 06:35 BUN 13 Creatinine 1.13 H Estimated GFR 47 L Microbiology 01/10/18 15:07 Fluid - Other Gram Stain - Final 01/10/18 15:07 Fluid - Other Body Fluid Culture - Final No growth in 72 hours (aerobically and anaerobically ) Assessment and Plan - Assessment (1) Cellulitis Code(s): L03.90 - Cellulitis, unspecified Status: Acute Plan: Cellulitis, LUE/shoulder/neck Lymphedema LUE Ant neck/mediastinum abscess. airway compromise - Pt is a 72 y/o female with chronic left upper extremity lymphedema s/p left breast lumpectomy and axillary node surgery - [place] [facility] [place] with left arm pain and redness. The patient states that the pain started three days prior to arrival in the ED. The patient states that the pain is localized to the left shoulder down to the left hand but also involves some spasm of her left neck. - She has visited her primary care physician twice regarding this and has been given Rocephin injection 2 as an outpatient and was started on Bactrim 1 day prior to arrival per record review. The arm swelling, pain and redness have increased despite these interventions. - LUE US was negative for DVT - Blood cultures (01/02) with NGTD - Venous Doppler Study (01/02/18): 1. The study is negative for upper extremity deep venous thrombosis. - Humerus CT (01/03/18): - Humerus is unremarkable. - I don't see a defined fluid collection to suggest a deep space abscess. - Neck MRI (01/03/18): 1. Extensive cellulitis of the lower anterior neck extending into the anterior chest wall and upper mediastinum. Probable 14 mm abscess in the left anterior neck near the level of the glottis and additional developing abscess in the upper anterior mediastinum measuring 2 cm in diameter with a sinus tract extending to the more superior abscess collection. Questionable early osteomyelitis of the manubrium. - Soft Tissue Neck CT (01/03/18) 1. Enlargement of the left strap muscles suggestive of injury and possible hematoma. Diffuse subcutaneous edema is also noted surrounding the strap muscles particularly on the left. - Shoulder MRI 01/07/18 00:00 1. Severe diffuse rotator cuff tendinosis similar to prior exam with partial thickness tear measuring up to about 15 mm in diameter. 2. Severe chronic osteoarthritis with presumably reactive effusion and synovitis that enhances postcontrast. Synovial debris and small osteochondral bodies in the axillary recess. 3. Mild subacromial and subdeltoid and subcoracoid bursitis. 4. Severe degenerative change at the AC joint. - Neck MRI 01/08/18 06:58 1. Persistent severe inflammation would likely cellulitis in the inferior neck , greatest on the left. There are 2 rim-enhancing fluid like collection suspicious for abscesses. The more superior is located anterior to the left thyroid cartilage and measures 1.8 x 1.3 cm compared to 1.6 x 1.2 cm previously suggesting mild enlargement. The more inferior and abuts the sternoclavicular joint and measures 2.8 x 1.8 cm compared to 2.3 x 1.7 cm previously also suggesting mild enlargement. 2. The abnormal inflammatory change extends into the visualized superior mediastinum. At some point it would be reasonable to further evaluate the entire chest for full extent of disease. 3. There is abnormal signal and enhancement within the superior aspect of the sternum, medial left clavicle, and surrounding the left sternoclavicular joint concerning for osteomyelitis and potentially septic joint. 4. There is a single enlarged left supraclavicular lymph node that has actually slightly decreased in size since the study from 5 days ago. - Chest MRI 01/09/18 00:00 1. Probable septic arthritis and osteomyelitis at the left sternoclavicular joint and to a lesser extent on the right side. Previous superior mediastinal abscess appears slightly decreased in size. Extensive cellulitis in the upper anterior chest remains. Exam degraded by motion artifact. - Pt was having more difficulty speaking and swallowing 01/04 - Spoke with [facility] and CTS and pt was moved to ICU for closer monitoring on 01/04 - Vancomycin (01/02 - present) - Zosyn (01/02 - present) - Clindamycin (01/04 - 01/06) - We are unable to give iv Decadron as pt reports severe allergy. - Continue liquid diet per ST - Eliquis on hold and sq heparin given. - Resume Eliquis if no intervention required on neck - Case d/w IR, Drs. Harvey and Oli Gar. MRI shows insuffient fluid collection for drainage catheters, but will use US guidance to obtain aspirate to send to lab for gram stain and culture - only small amount of fluid obtain with US guided aspiration (01/10). - neck aspirated gram stain (01/10) --> No WBCs, no organisms - neck aspirate C&S (01/10) --> NO growth - Case d/w Dr. Pritchard (01/10). Will continue current antibiotic treatment thru Saturday 01/13 & then reasses. - will d/w CVS 01/13/18. Appreciate input from ENT. 01/12/18 - Pt interviewed and examined - continue current treatment plan as outlined above - will d/w ID and CVS Saturday 01/13 - trial of flexeril & k-thermia pad for left trapezius tenderness - obtain 12 lead EKG for baseline - consider Orthopedic consult 01/13 to evaluate left rotator cuff tear and give recommendations - reconsult PT - consult OT 01/13/18 - schedule Flexeril x 48 hours - add Lactinex Per ID Continue Vanco Stop Zosyn Monitor progress Change Zosyn to Levaquin and Flagyl If stable, consider D/C on IV Vanco and po Abx and complete at least 4 weeks Rx (reCT neck prior to stop ABx) and possibly extend to 6 weeks if still with fluid collection 01/14/18 PICC line ordered A. fib - Cont. home meds HTN - Home meds continued - Monitor Hypothyroidism - Continue home medication. The exam, history, and the medical decision-making described in the above note were completed with the assistance of the mid-level provider. I reviewed and agree with the findings presented. I attest that I had a [id number] encounter with the patient on the same day, and personally performed and documented my assessment and findings in the medical record. (2) Lymphedema Code(s): I89.0 - Lymphedema, not elsewhere classified Status: Chronic (3) Hypothyroidism Code(s): E03.9 - Hypothyroidism, unspecified Status: Chronic (4) Hypertension Code(s): I10 - Essential (primary) hypertension Status: Chronic (5) GERD (gastroesophageal reflux disease) Code(s): K21.9 - Gastro-esophageal reflux disease without esophagitis Status: Acute (6) Atrial fibrillation Code(s): I48.91 - Unspecified atrial fibrillation Status: Chronic (1) Cellulitis Qualifiers: Site of cellulitis: extremity Site of cellulitis of extremity: upper extremity Laterality: left Qualified Code(s): L03.114 - Cellulitis of left upper limb
[2018-01-14] MEDS: Lidocaine 5% Patch T-DERMAL SCH (09:02)
[2018-01-14] MEDS: HYDROmorphone PF Inj 2 MG/ML Vial IV.PUSH PRN (09:06)
--- NOTE | 2018-01-14 10:29 | P.DCO ---
- Diagnosis (1) Cellulitis - Home Health Nursing Order: Medical education, Signs/symptoms of disease process, Medication education-adverse effect, Nursing assessment with vital signs, IV medication administration - Case Management Consult No - Certification I have seen patient Kinjal Welch on 01/14/18. My clinical findings support the need for the requested home health care services because: Limited mobility due to disease progression I certify that my clinical findings support that this patient is homebound because: Unsafe to leave home unassisted (1) Cellulitis Qualifiers: Site of cellulitis: extremity Site of cellulitis of extremity: upper extremity Laterality: left Qualified Code(s): L03.114 - Cellulitis of left upper limb
--- NOTE | 2018-01-14 15:53 | US ---
EXAM DATE: 01/10/2018 12:00 AM EDT AGE/SEX: 72 years / Female INDICATIONS: Patient presents with abscess an pain in her neck in need of aspiration. CLINICAL DATA: This is the patient's initial encounter. Patient reports that signs and symptoms have been present for 1 day and indicates a pain score of 7/10. MEDICAL/SURGICAL HISTORY: Hypertension. Cardiovascular disease, Afib . COMPARISON: No prior exams available for comparison. FLUID: Total volume of 1cc cc of clear, red fluid was removed. Fluid was sent to lab for ordered studies. . . TECHNIQUE: Ultrasound guidance for needle aspiration. Aspiration. The risks, benefits and alternatives to the procedure were explained and verbal and written consent w as obtained. The site was prepped in sterile fashion. Full sterile technique was used, including ca p, mask, sterile gloves and gown and a large sterile sheet. Hand hygiene and 2% chlorhexidine and/or betadine/alcohol prep was utilized per protocol for cutaneous antisepsis. The skin and subcutaneous tissues were infiltrated with local anesthetic solution. Sterile gel and sterile probe cover were u tilized for ultrasound guidance. FINDINGS: With the patient on the ultrasound table, ultrasound imaging was used to select the most appropriate approach for aspiration. Compared to prior exams, there was no identifiable significant fluid in the collection. Patient herself reports marked improvement over the past few days after antibiotic therap y. The needle was placed centrally in the dominant hypoechoic area in the left para midline neck and a small aspirate obtained and placed in a sterile culture container. CONCLUSION: Aspiration of the focal hypodensity in the left para midline neck area. No large fluid collection. Mi nimal aspirate was obtained and placed in a sterile culture container. Electronically signed by: Kimo Harvey MD 01/14/2018 3:51 PM EDT
[2018-01-14] MEDS ORDERED: Heparin Central Flush 100 UNIT/ML 5 ML Vial IV.FLUSH PRN (16:15)
--- NOTE | 2018-01-14 16:22 | P.DS ---
Date of admission: 01/04/18 12:17 Primary care physician: UNKNOWN Attending physician on discharge: Ashok Bonilla Anticipated date of discharge: 01/15/18 Brief History from admission: The patient is a 72-year-old female with chronic left upper extremity lymphedema status post distant history of left axillary node surgery that presents for the evaluation of left arm pain. The patient states that the pain started three days prior to arrival on Saturday. The patient states that the pain is localized to the left shoulder down to the left hand but also involves some spasm of her left neck. The patient states that the pain has been constant since Saturday and the patient states that when she tries to move the arm, the pain is significantly worse despite outpatient pain medication. She has visited her primary care physician twice regarding this including earlier on the day of arrival. She has been given Rocephin injection 2 as an outpatient and was started on Bactrim 1 day prior to arrival per record review. The arm swelling, pain and redness have increased despite these interventions. She has been experiencing fatigue, dry mouth, and she reports some nausea with dry heaving but no vomiting. The patient denies chest pain, shortness of breath, and fever. She does report that she has a pounding headache and that she feels dizzy when she stands up too fast. 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 sporog)] 1 tab PO BID 28 Days # 56 tab hydrocodone-acetaminophen 1 tab PO Q4H PRN #18 tab PRN Reason: Pain levofloxacin 750 mg PO DAILY 34 Days #34 tab lidocaine [Lidoderm] 1 patch TRANSDERMAL DAILY #14 ea metronidazole 500 mg PO Q8HR 32 Days tab DS: Summary Hospital Course: Cellulitis, LUE/shoulder/neck Lymphedema LUE Ant neck/mediastinum abscess. airway compromise - Pt is a 72 y/o female with chronic left upper extremity lymphedema s/p left breast lumpectomy and axillary node surgery - Pt presented to the ED at [facility] on 01/02/18 with left arm pain and redness. The patient states that the pain started three days prior to arrival in the ED. The patient states that the pain is localized to the left shoulder down to the left hand but also involves some spasm of her left neck. - She has visited her primary care physician twice regarding this and has been given Rocephin injection 2 as an outpatient and was started on Bactrim 1 day prior to arrival per record review. The arm swelling, pain and redness have increased despite these interventions. - LUE US was negative for DVT - Blood cultures (01/02) with NGTD - Venous Doppler Study (01/02/18): 1. The study is negative for upper extremity deep venous thrombosis. - Humerus CT (01/03/18): - Humerus is unremarkable. - I don't see a defined fluid collection to suggest a deep space abscess. - Neck MRI (01/03/18): 1. Extensive cellulitis of the lower anterior neck extending into the anterior chest wall and upper mediastinum. Probable 14 mm abscess in the left anterior neck near the level of the glottis and additional developing abscess in the upper anterior mediastinum measuring 2 cm in diameter with a sinus tract extending to the more superior abscess collection. Questionable early osteomyelitis of the manubrium. - Soft Tissue Neck CT (01/03/18) 1. Enlargement of the left strap muscles suggestive of injury and possible hematoma. Diffuse subcutaneous edema is also noted surrounding the strap muscles particularly on the left. - Shoulder MRI 01/07/18 00:00 1. Severe diffuse rotator cuff tendinosis similar to prior exam with partial thickness tear measuring up to about 15 mm in diameter. 2. Severe chronic osteoarthritis with presumably reactive effusion and synovitis that enhances postcontrast. Synovial debris and small osteochondral bodies in the axillary recess. 3. Mild subacromial and subdeltoid and subcoracoid bursitis. 4. Severe degenerative change at the AC joint. - Neck MRI 01/08/18 06:58 1. Persistent severe inflammation would likely cellulitis in the inferior neck , greatest on the left. There are 2 rim-enhancing fluid like collection suspicious for abscesses. The more superior is located anterior to the left thyroid cartilage and measures 1.8 x 1.3 cm compared to 1.6 x 1.2 cm previously suggesting mild enlargement. The more inferior and abuts the sternoclavicular joint and measures 2.8 x 1.8 cm compared to 2.3 x 1.7 cm previously also suggesting mild enlargement. 2. The abnormal inflammatory change extends into the visualized superior mediastinum. At some point it would be reasonable to further evaluate the entire chest for full extent of disease. 3. There is abnormal signal and enhancement within the superior aspect of the sternum, medial left clavicle, and surrounding the left sternoclavicular joint concerning for osteomyelitis and potentially septic joint. 4. There is a single enlarged left supraclavicular lymph node that has actually slightly decreased in size since the study from 5 days ago. - Chest MRI 01/09/18 00:00 1. Probable septic arthritis and osteomyelitis at the left sternoclavicular joint and to a lesser extent on the right side. Previous superior mediastinal abscess appears slightly decreased in size. Extensive cellulitis in the upper anterior chest remains. Exam degraded by motion artifact. - Pt was having more difficulty speaking and swallowing 01/04 - Spoke with Field Assistant and CTS and pt was moved to ICU for closer monitoring on 01/04 - Vancomycin (01/02 - present) - Zosyn (01/02 - present) - Clindamycin (01/04 - 01/06) - We are unable to give iv Decadron as pt reports severe allergy. - Continue liquid diet per ST - Eliquis on hold and sq heparin given. - Resume Eliquis if no intervention required on neck - Case d/w IR, Drs. Harvey and Oli Gar. MRI shows insuffient fluid collection for drainage catheters, but will use US guidance to obtain aspirate to send to lab for gram stain and culture - only small amount of fluid obtain with US guided aspiration (01/10). - neck aspirated gram stain (01/10) --> No WBCs, no organisms - neck aspirate C&S (01/10) --> NO growth - Case d/w Dr. Pritchard (01/10). Will continue current antibiotic treatment thru Saturday 01/13 & then reasses. - will d/w [facility] 01/13/18. Appreciate input from ENT. 01/12/18 - Pt interviewed and examined - continue current treatment plan as outlined above - will d/w ID and CVS Saturday 01/13 - trial of flexeril & k-thermia pad for left trapezius tenderness - obtain 12 lead EKG for baseline - consider Orthopedic consult 01/13 to evaluate left rotator cuff tear and give recommendations - reconsult PT - consult OT 01/13/18 - schedule Flexeril x 48 hours - add Lactinex Per ID Continue Vanco Stop Zosyn Monitor progress Change Zosyn to Levaquin and Flagyl If stable, consider D/C on IV Vanco and po Abx and complete at least 4 weeks Rx (reCT neck prior to stop ABx) and possibly extend to 6 weeks if still with fluid collection Patient will need a repeat MRI neck soft tissue in 2 weeks with results to Dr. Galindo 01/14/18 PICC line ordered A. fib - Cont. home meds HTN - Home meds continued - Monitor Hypothyroidism - Continue home medication. - Time Spent with Patient Total time spent providing and/or coordinating discharge services: Greater than 30 minutes - Quality: VTE Deep Vein Thrombosis/Pulmonary Embolism Present on Admission: No Exam Vital signs: Vital Signs 01/13/18 20:00 01/13/18 23:25 01/14/18 08:00 Temperature 99.4 F 98.7 F 98.0 F Pulse Rate 77 71 63 Respiratory Rate 16 18 18 Blood Pressure 128/85 153/82 H 139/67 Pulse Oximetry 95 94 L 95 01/14/18 12:00 Temperature 97.8 F Pulse Rate 64 Respiratory Rate 18 Blood Pressure 111/65 Pulse Oximetry 96 Intake & Output 01/13/18 01/14/18 01/14/18 18:59 06:59 18:59 Intake Total 900 / 900 262.5 / 262.5 Balance 900 / 900 262.5 / 262.5 Weight 110 kg Intake: IV 100 / 100 262.5 / 262.5 Zosyn 3.375 GM Premix 50 ML @ 100 / 100 100 mls/hr IV.SIG Q6H DONNA Rx#: [id number] Vancomycin Inj 1,250 MG In NS 262.5 / 262.5 Inj 250 ML @ 250 mls/hr IV.SIG Q24H DONNA Rx#:[id number] Oral 800 / 800 Other: # Voids 3 1 Narrative: General: NAD, AAOx3 Skin: Chronic lymphedema left upper extremity.Erythema has improved Cardiac: Regular rate and rhythm. Chest: CTA bilaterally. Abd: +BS, soft, non-tender, nondistended. Ext: Lymphedema left upper extremity. MS: tender on palpation at left anterior neck, left upper anterior chest, and left shoulder with touch Results Procedures completed during hospitalization: - Case d/w IR, Drs. Harvey and Oli Gar. MRI shows insuffient fluid collection for drainage catheters, but will use US guidance to obtain aspirate to send to lab for gram stain and culture - only small amount of fluid obtain with US guided aspiration (01/10). - neck aspirated gram stain (01/10) --> No WBCs, no organisms - neck aspirate C&S (01/10) --> NO growth Labs on day of discharge: Labs from last 24 hours 01/14/18 06:35 BUN 13 Creatinine 1.13 H Estimated GFR 47 L - Impressions ITS Impressions Chest X-Ray 01/02/18 18:17 CONCLUSION: Mild cardiomegaly with probable basilar atelectasis. Surgical clips left axilla. No significant effusion. Venous Doppler Study 01/02/18 18:20 CONCLUSION: 1. The study is negative for upper extremity deep venous thrombosis. 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 Humerus CT 01/03/18 00:00 Humerus is unremarkable. CONCLUSION: 1. I don't see a defined fluid collection to suggest a deep space abscess. 2. Ultrasound could be used to follow. Soft Tissue Neck CT 01/03/18 00:00 CONCLUSION: 1. Enlargement of the left strap muscles suggestive of injury and possible hematoma. Diffuse subcutaneous edema is also noted surrounding the strap muscles particularly on the left. Shoulder MRI 01/07/18 00:00 CONCLUSION: 1. Severe diffuse rotator cuff tendinosis similar to prior exam with partial thickness tear measuring up to about 15 mm in diameter. 2. Severe chronic osteoarthritis with presumably reactive effusion and synovitis that enhances postcontrast. Synovial debris and small osteochondral bodies in the axillary recess. 3. Mild subacromial and subdeltoid and subcoracoid bursitis. 4. Severe degenerative change at the AC joint. Neck MRI 01/08/18 06:58 CONCLUSION: 1. Persistent severe inflammation would likely cellulitis in the inferior neck , greatest on the left. There are 2 rim-enhancing fluid like collection suspicious for abscesses. The more superior is located anterior to the left thyroid cartilage and measures 1.8 x 1.3 cm compared to 1.6 x 1.2 cm previously suggesting mild enlargement. The more inferior and abuts the sternoclavicular joint and measures 2.8 x 1.8 cm compared to 2.3 x 1.7 cm previously also suggesting mild enlargement. 2. The abnormal inflammatory change extends into the visualized superior mediastinum. At some point it would be reasonable to further evaluate the entire chest for full extent of disease. 3. There is abnormal signal and enhancement within the superior aspect of the sternum, medial left clavicle, and surrounding the left sternoclavicular joint concerning for osteomyelitis and potentially septic joint. 4. There is a single enlarged left supraclavicular lymph node that has actually slightly decreased in size since the study from 5 days ago. Chest MRI 01/09/18 00:00 CONCLUSION: 1. Probable septic arthritis and osteomyelitis at the left sternoclavicular joint and to a lesser extent on the right side. Previous superior mediastinal abscess appears slightly decreased in size. Extensive cellulitis in the upper anterior chest remains. Exam degraded by motion artifact. Needle Aspiration US 01/10/18 00:00 CONCLUSION: Aspiration of the focal hypodensity in the left para midline neck area. No large fluid collection. Minimal aspirate was obtained and placed in a sterile culture container. Discharge Plan - Discharge Disposition Patient Disposition: /Home Health Service - Discharge Condition Condition: Stable - Discharge Order Discharge Orders: Discharge Order (Routine); Ordered 01/14/18 Ordered By: Christine Marcano - Physicians Team Primary Care Provider: UNKNOWN, Attending Provider: Ashok Bonilla Other Providers: Jaylin Dueñas MD ; Mera Pritchard MD ; Lorne Solomon MD ; Camilo Montgomery MD ; [employer] [facility],Agency
--- NOTE | 2018-01-14 16:23 | P.DCO ---
Post Hospital Infusion Therapy Location of Infusion Therapy: Home Health Care IV Infusion Order Patient Weight: 110 kg - Administer Medication Vancomycin Additional Dosing Instructions: Vancomycin 1.25 gm IV q24H Stop Treatment: 02/13/18 - Additional Information Venous Access: PICC Line Additional Instructions: [x] Peripheral flush and dressing changes per protocol [x] Implanted port and central on line csr: * Implanted port: 10 ml Normal Saline followed by 5 ml Heparin 100 units/ml Heparin flush after each use and monthly to maintain. [] May leave port accessed during therapy. [] May leave peripheral site accessed for duration of therapy. [x] If patient has SOB or respiratory distress, check oxygen saturation. If less than 90% or clinical signs of respiratory distress, administer oxygen at 2 L/min. via nasal cannula and notify physician. [x] Anaphylaxis/Reaction orders: * Stop infusion. * Keep IV line open with saline flush. * Notify physician. * Monitor vital signs every 15 minutes until symptoms resolve. * Check Oxygen saturation; Oxygen at 2 L/min. via nasal cannula if less than 90% or clinical signs of respiratory distress. * Administer diphenhydramine (Benadryl) 25 mg IV STAT, (unless patient has received as pre-med). May repeat once, if necessary. * Solu-Cortef 250 mg IVP over 30-60 seconds, use 100 mg vials for each dissolution. * Epinephrine (1mg/1 ml) 0.3 mg subcutaneously or IVP now with any signs of respiratory distress. * Check with physician for new additional pre-med orders if patient is re- challenged or re-treated. [x] May remove PICC line when treatment complete. [x] If the patient is admitted to the hospital, the ED, or transferred via [facility] , complete transfer form including medication reconciliation order sheet. Weekly Labs: CBC w/diff, Creatinine, Vancomycin Trough (Labs every Saturday - copy to me and Dr Galindo) Additional Information: Please have patient followup with Dr Galindo in 2-3 weeks Allergies amlodipine Allergy (Mild, Verified 01/02/18 17:30) UNKNOWN lisinopril Allergy (Mild, Verified 01/02/18 17:30) UNKNOWN nifedipine Allergy (Mild, Verified 01/02/18 17:30) UNKNOWN NSAIDS (Non-Steroidal Anti-Inflamma Allergy (Mild, Verified 01/02/18 17:30) Hives morphine Adverse Reaction (Mild, Verified 01/02/18 17:28) Nausea/Vomiting STEROIDS Allergy (Severe, Uncoded 01/02/18 17:28) Anaphylaxis
[2018-01-14] MEDS: Vancomycin Inj 1,250 MG in Sodium Chlor 0.9% Inj 250 ML IV.SIG SCH (17:47)
[2018-01-14] MEDS: Metoprolol Tartrate 25 MG Tablet PO SCH (21:47)
[2018-01-15] MEDS: Levothyroxine 112 MCG Tablet PO SCH (05:38)
[2018-01-15] MEDS: metroNIDAZOLE 500 MG Tablet PO SCH ×3 (05:38→13:06)
[2018-01-15] MEDS ORDERED: Heparin Central Flush 100 UNIT/ML 5 ML Vial IV.FLUSH SCH (09:00)
[2018-01-15] MEDS: Lidocaine 5% Patch T-DERMAL SCH (09:04)
[2018-01-15] MEDS: Furosemide 40 MG Tablet PO SCH (09:04)
[2018-01-15] MEDS: Lactobacillus Acidophilus/L. Spores Tablet PO SCH (09:04)
[2018-01-15] MEDS: levoFLOXacin 750 MG Tablet PO SCH (09:04)
[2018-01-15] MEDS: Anastrozole 1 MG Tablet PO SCH (09:05)
[2018-01-15] MEDS: Gabapentin 300 MG Capsule PO SCH ×2 (09:06→12:20)
[2018-01-15] MEDS: ALPRAZolam 0.25 MG Tablet PO SCH (09:06)
[2018-01-15] MEDS: Metoprolol Tartrate 25 MG Tablet PO SCH (09:06)
[2018-01-15] MEDS: Pantoprazole Sodium 20 MG DR Tablet PO SCH (09:06)
[2018-01-15] MEDS: Heparin - SQ 10,000 UNITS/ML Vial SQ SCH (09:07)
[2018-01-15] MEDS ORDERED: Metoprolol Tartrate 25 MG Tablet PO ONE (09:18)
[2018-01-15] MEDS: HYDROmorphone PF Inj 2 MG/ML Vial IV.PUSH PRN (09:42)
[2018-01-15 12:10] VITALS: BP 118/62; PULSE 65; RESP 18; TEMP 97.9; O2SAT 96
[2018-01-15] MEDS: Vancomycin Inj 1,250 MG in Sodium Chlor 0.9% Inj 250 ML IV.SIG SCH (13:06)
[2018-01-15] MEDS ORDERED: Pharmacy Ordered Lab Info OTHER ONE (17:45)
[2018-01-15] MEDS ORDERED: Metoprolol Tartrate 100 MG Tablet PO SCH (21:00)
== END 2018-01-15 15:16 | disposition home health service (06) ==
LOC: NEPC 17:09 → NEDA 17:09 → NEPHCDU 22:03 → N05 01-03 20:22 → N03 01-04 09:09 → N07 01-08 18:14
PROVIDERS: ADMIT Hospitalist; ATTEND Hospitalist